=== PATIENT | male | born 1955 | race Caucasian/White ===

== ENCOUNTER → 2016-07-17 | Outpatient (CLI) | payer OTHER ==
[~2016-07-17] MED LIST: ALBUAER2 INH; CETI10TA84 PO; EPP3/2 IM; ESOM40GR PO; FLUT50SP14 NAE; GLIM2TAB PO; LEVO50CA2; LOSA1TAB38 PO; SPIR25TA PO; SYMIN160 INH
== END | disposition home or self-care (01) ==
LOC: C.LABSPEC 16:54
PROVIDERS: ATTEND Nurse Practitioner Family
DX: R10.9 Unspecified abdominal pain (principal)

== ENCOUNTER → 2016-07-18 | Outpatient (CLI) | payer OTHER ==
--- NOTE | 2016-07-18 15:42 | DIAGNOSTIC IMAGING REPORT ---
CT SCAN OF THE ABDOMEN AND PELVIS WITHOUT CONTRAST CLINICAL HISTORY: Left flank pain. COMPARISON STUDY: No previous studies for comparison. TECHNIQUE: CT scan of the abdomen and pelvis was performed from the lung bases to the proximal femurs. Images are reviewed in the axial, sagittal, and coronal planes. IV contrast was not administered for this examination. CT DOSE: 1495.84 mGy.cm FINDINGS: Lower chest: The heart is normal in size and configuration, without pericardial effusion. The lung bases and pleural spaces are clear. Liver: There is mild hepatic steatosis. No focal masses are visualized this noncontrast study. Gallbladder: Surgically absent Spleen: Normal in size and attenuation. Pancreas: Unremarkable. Adrenal glands: Unremarkable. Kidneys: No renal, ureteral, or bladder calculi are visualized. There is prominence of the left renal pelvis. There is a possible coexisting parapelvic cyst. There is mild perinephric stranding. Clinical correlation in regards to a urinary tract infection is recommended. Bowel: There are no transition zones indicate bowel obstruction. The appendix is not visualized. By history the appendix is surgically absent. There is no evidence of acute diverticulitis. Peritoneum: There is no free air. There is no ascites. There are mildly prominent upper abdominal mesenteric nodes. Vasculature: The abdominal aorta is normal in course and caliber. Adenopathy: There is no retroperitoneal adenopathy. As stated above, there are mildly prominent central mesenteric lymph nodes Pelvic viscera: The bladder, and pelvic viscera are unremarkable. Skeletal structures: No destructive osseous lesions are seen. IMPRESSION: 1. No evidence of bowel obstruction. No evidence of free air 2. No renal, ureteral, or bladder calculi identified 3. Mild prominence the left renal pelvis. Possible parapelvic cysts. Mild bilateral perinephric stranding. Clinical correlation in regards to a urinary tract infection is recommended 4. Mildly prominent central mesenteric lymph nodes 5. Surgically absent appendix. No evidence of acute diverticulitis. Electronically signed by: Say Clayton M.D. 07/18/2016 3:40 PM Dictated Date/Time: 07/18/2016 3:33 PM
== END | disposition home or self-care (01) ==
LOC: C.CTS 15:08
PROVIDERS: ATTEND Nurse Practitioner Family
DX: R93.422 Abnormal radiologic findings on diagnostic imaging of left kidney (principal); R10.9 Unspecified abdominal pain

== ENCOUNTER → 2016-07-30 | Outpatient (CLI) | payer OTHER ==
[~2016-07-30] MED LIST changes: +MethylPREDNISolone HOME PACK 16 MG TAB PO SCH
--- NOTE | 2016-07-30 14:30 | DIAGNOSTIC IMAGING REPORT ---
IVP CLINICAL HISTORY: Abnormality of the left kidney on imaging. COMPARISON STUDY: CT of the abdomen and pelvis July 18, 2016. 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 An intravenous pyelogram was then performed following intravenous injection 100 cc of Optiray 300 IV. Due to technical difficulties, tomographic images could not be obtained. FINDINGS: [employer] image demonstrates no urinary calculi. There are cholecystectomy clips. The bowel gas pattern is normal. Both nephrograms are symmetric. There is no hydronephrosis or hydroureter. Prominence of the right renal pelvis suggests an extrarenal pelvis. This did not persist on the post void image. The abnormality with the left renal pelvis on CT of July 18, 2016 likely reflects a parapelvic cyst. There is no significant post void residual. No filling defects are identified although visualization of the ureters is suboptimal. IMPRESSION: 1. No hydronephrosis. Apparent prominence of the left renal pelvis on CT of July 18, 2016 is likely due to parapelvic cysts. 2. No urinary calculi. Electronically signed by: Federico Saxena M.D. 07/30/2016 2:29 PM Dictated Date/Time: 07/30/2016 2:25 PM
== END | disposition home or self-care (01) ==
LOC: C.RAD 12:49
PROVIDERS: ATTEND Nurse Practitioner Family
DX: R93.8 Abnormal findings on diagnostic imaging of other specified body structures (principal)

== ENCOUNTER → 2017-01-23 | Outpatient (CLI) | payer OTHER ==
[~2017-01-23] MED LIST changes: -MethylPREDNISolone HOME PACK 16 MG TAB PO SCH
[2017-01-23 13:08] LABS: ALT/SGPT 44 U/L (12-78); AST/SGOT 24 U/L (15-37); BLOOD UREA NITROGEN 16 mg/dl (7-18); BUN/CREATININE RATIO 19.1 (10-20); CALCIUM 8.7 mg/dl (8.5-10.1); CARBON DIOXIDE 23 mmol/L (21-32); CHLORIDE 107 mmol/L (98-107); CREATININE 0.86 mg/dl (0.60-1.40); GLUCOSE 198 mg/dl (70-99); POTASSIUM 4.1 mmol/L (3.5-5.1); SODIUM 137 mmol/L (136-145)
[2017-01-23 13:15] LABS: ESTIMATED AVERAGE GLUCOSE 192 mg/dl; HA1C FLAG Normal (Normal)
[2017-01-23 13:19] LABS: ALKALINE PHOSPHATASE 96 U/L (45-117); CHOLESTEROL 197 mg/dl (0-200); CHOLESTEROL/HDL RATIO 5.5; HDL CHOLESTEROL 36 mg/dl; THYROID STIMULATING HORMONE 0.284 uIu/ml (0.300-4.500); TRIGLYCERIDES 555 mg/dl (0-150)
--- NOTE | 2017-01-30 09:25 | CODING QUERY MEDICAL NECESSITY ---
SUPPORTING DIAGNOSIS NEEDED A supporting diagnosis is required for the test/procedure performed on this patient in order for us to be reimbursed by the patient's insurance. Please provide a supporting diagnosis for the following test/procedure listed below next to the test name along with your signature. *If there is no additional diagnosis for this patient that would support the following test/procedure please document that below next to the test/procedure. Test(s)/Procedure(s) that require a supporting diagnosis: * PSA DIAGNOSIS: Provider Signature: Date: Thank you Chelita Anderson [employer] Information Management Once completed, please kindly fax back to [phone] For questions please call [phone]
== END | disposition home or self-care (01) ==
LOC: C.LABPBG 10:33
PROVIDERS: ATTEND Neuromusculoskeletal Medicine & OMM
DX: Z00.00 Encounter for general adult medical examination without abnormal findings (principal); E11.9 Type 2 diabetes mellitus without complications; E03.9 Hypothyroidism, unspecified; Z12.5 Encounter for screening for malignant neoplasm of prostate

== ENCOUNTER 2020-07-26 17:20 | Observation (INO) ==
[2020-07-26 17:46] LABS: Basophils # (auto) 0.05 K/uL (0-0.2); Basophils % (auto) 0.5 %; Eosinophils # (auto) 0.18 K/uL (0-0.5); Eosinophils % (auto) 1.8 %; Hematocrit (blood only) 51.8 % (42-52); Hemoglobin 17.8 g/dL (14.0-18.0); Immature Granulocytes # (auto) 0.02 K/uL (0.00-0.02); Immature Granulocytes % (auto) 0.2 %; Lymphocytes # (auto) 2.61 K/uL (1.2-3.4); Lymphocytes % (auto) 26.6 %; Mean Corpuscular Hemoglobin 29.9 pg (25-34); Mean Corpuscular Hgb Conc 34.4 g/dL (32-36); Mean Corpuscular Volume 87.1 fL (80-100); Mean Platelet Volume 10.5 fL (7.4-10.4); Monocytes # (auto) 0.99 K/uL (0.11-0.59); Monocytes % (auto) 10.1 %; Neutrophils # (auto) 5.95 K/uL (1.4-6.5); Neutrophils % (auto) 60.8 %; Platelet Count 231 K/uL (130-400); RDW Coefficient of Variation 12.9 % (11.5-14.5); RDW Standard Deviation 40.9 fL (36.4-46.3); Red Blood Count 5.95 M/uL (4.7-6.1)
[2020-07-26 17:56] LABS: Partial Thromboplastin Time 26.3 Seconds (21.0-31.0); Prothrombin Time 10.3 Seconds (9.0-12.0)
[2020-07-26 18:02] LABS: Alanine Aminotransferase 27 U/L (12-78); Albumin Level 4.1 gm/dl (3.4-5.0); Aspartate Aminotransferase 18 U/L (15-37); BUN Creatinine Ratio 19.1 (10-20); Blood Urea Nitrogen 19 mg/dl (7-18); Calcium 9.2 mg/dl (8.5-10.1); Carbon Dioxide 32 mmol/L (21-32); Chloride 102 mmol/L (98-107); Creatinine Clr Calc Pharmacy 83.1 ml/min; Est GFR (African American) 88.4; Est GFR (Non-African American) 76.2; Glucose 148 mg/dl (70-99); Potassium 3.2 mmol/L (3.5-5.1); Sodium 140 mmol/L (136-145)
[2020-07-26 18:07] LABS: Alkaline Phosphatase 124 U/L (45-117); Bilirubin,Total 0.5 mg/dl (0.2-1); Globulin 4.3 gm/dl (2.5-4.0); Total Protein 8.4 gm/dl (6.4-8.2); Troponin I < 0.015 ng/ml (0-0.045)
--- NOTE | 2020-07-26 18:13 | XRay Report ---
SINGLE VIEW CHEST CLINICAL HISTORY: Atypical chest pain. FINDINGS: An AP, portable, upright chest radiograph is compared to study dated 03/17/2020. The examina tion is degraded by portable technique and apical lordotic position. The patient is status post midli ne sternotomy. The heart is enlarged noting atherosclerotic calcification of the thoracic aorta. The pulmonary vasculature is noncongested. Chronic interstitial thickening is similar to previous. There is left basilar scarring/atelectasis. No airspace consolidation or large pleural effusion is identifi ed. No pneumothorax is seen. The skeletal structures are osteopenic. The bony thorax is grossly intac t. IMPRESSION: Mild cardiomegaly with no acute cardiopulmonary abnormality. ACT 112: Negative or not required by law. Electronically signed by: Elie Ceron M.D. 07/26/2020 6:11 PM
--- NOTE | 2020-07-26 18:23 | Emergency Department Note ---
Impression & Plan Left-sided chest pain, Acute electrocardiogram changes ED Provider Note INFORMANT: Patient ED PROVIDER(S): James Garcia MD CHIEF COMPLAINT: Left-sided chest pain PLAN: Disposition: Admitted Condition: Good Outpatient prescription management: none Referral: None MEDICAL DECISION MAKING: Patient presented because of left-sided chest pain. An ECG was performed in the office and it did show inferolateral T wave inversions. They did not have any prior for comparison. An ECG done here showed inferolateral changes as well. Compared to the prior ECGs in our system this was different however they were all done before his CABG. The patient underwent CT imaging of his chest which did not reveal any acute pathology. Specifically no PE. The patient underwent ultrasound imaging of the left lower extremity. This was negative. I was able to obtain an ECG from the [facility] system and the inferolateral changes are new. In light of his negative thromboembolic work-up, cardiac history, and new ECG changes further management in the hospital be necessary. A consultation was mad e with [facility] service. The patient was evaluated in the ER by Dr. Dwayne Matthew for further management. The patient did request a dose of his evening tramadol for his leg. This was done. He did take his aspirin and Plavix today. Triage Nursing notes reviewed and agree them. Prior medical records reviewed regarding the patient's medical history. Vital Signs: reviewed and remarkable for no significant abnormalities Differential diagnosis: Cardiac ischemia, aortic dissection, pulmonary embolism, pneumothorax, pneumonia, pericarditis, myocarditis, esophageal rupture, GERD, cholecystitis, pancreatitis, musculoskeletal, as well as other pathologies. Diagnostics interpreted by me: ECG: Twelve-lead ECG reveals normal sinus rhythm with sinus arrhythmia at 81 bpm. There is inferolateral T wave inversions. These are new when compared to ECG of 06/11/2019. His ECG done in the office revealed a sinus rhythm at 85 bpm. There is LVH. There was inferolateral T wave changes. When compared to the [place] ECG for both ECGs done today the inferolateral changes have replaced nonspecific ST change. That ECG was dated 03 April 2020. Cardiac Monitoring:Cardiac monitoring ordered by me: The patient was placed on continuous cardiac monitoring and observed. It revealed a normal sinus rhythm at 85 beats per minute without ectopy or evidence of dysrhythmia. Imaging studies: Chest x-ray. Findings: A chest x-ray was performed and revealed no pneumothorax, effusion, infiltrate, pulmonary edema, free air under the diaphragm, or wide mediastinum. Impression: No acute disease. Ultrasound imaging of the left leg negative for DVT. CT PE study negative for pulmonary embolism or other acute pathology. I refer you to the EMR for further details on imaging. HPI: The patient is a 65 year old male who presents to the Emergency Room with complaints of left-sided chest pain. This started a few days ago and is persistent. The patient does note it is worse with taking a deep breath.. The patient also notes the following associated symptoms, intermittent lightheadedness. The patient has taken no new medication for relieving factors. Current pain is rated as 5/10. Patient was at his PCPs office. They were concerned and will been order an outpatient CT scan for PE and an ultrasound as he was having some left leg calf pain. They did an EKG and it was abnormal and sent him to the ER for further evaluation. Pt denies LOC, headache, fevers, chills, diaphoresis, visual changes, neck pain, breathing difficulties, nausea, vomiting, abdominal pain, back pain, melena, hematochezia, urinary symptoms, numbness, weakness, lymphadenopathy, rash, or other complaints. ROS: See above HPI for pertinent positives & negatives. A total of 10 systems reviewed and were otherwise negative. PAST MEDICAL HISTORY:See Below , CAD PAST SURGICAL HISTORY:See Below, CABG FAMILY HISTORY:See Below SOCIAL HISTORY:See Below, HOME MEDICATIONS:See Below ALLERGIES:See Below VITALS:See Below PHYSICAL EXAMINATION: GENERAL: Awake, alert, well-appearing, in no distress HENT: Normocephalic, atraumatic. Oropharynx unremarkable. EYES: Normal conjunctiva. Sclera non-icteric. NECK: Inspection normal. Non-tender. Supple. No nuchal rigidity. FROM. No masses. RESPIRATORY: Clear to auscultation. No wheezes. No rales. Normal respiratory effort. CARDIAC: Normal rate. Normal rhythm. No murmurs. No rubs. Extremities warm and well perfused. Pulses equal. No JVD. GI: Soft, non-distended. No tenderness to palpation. No rebound or guarding. No masses. RECTAL: Deferred. MUSCULOSKELETAL: Atraumatic. Chest examination reveals no tenderness. The back is symmetrical on inspection without obvious abnormality. There is no CVA tenderness to palpation. No joint edema. LOWER EXTREMITIES: Calves are equal size bilaterally but there is mild superior left tenderness. No edema. No discoloration. NEURO: Normal sensorium. No sensory or motor deficits noted. SKIN: No rash or jaundice noted. James Garcia MD Past Med/Surg History Medical History Asthma CAD (coronary artery disease) Diabetes mellitus, type 2 Distal myopathy Dyslipidemia GERD (gastroesophageal reflux disease) Agustín's thyroiditis History of cervical fracture History of colon polyps History of fatty infiltration of liver History of gout History of stomach ulcers Hypertension Hypothyroidism IBS (irritable bowel syndrome) Migraine Nasal fracture Neuropathy Osteoarthritis TBI (traumatic brain injury) Vitamin D deficiency Surgical History H/O repair of rotator cuff History of appendectomy History of arthroscopic knee surgery History of cardiac cath History of carpal tunnel release of both wrists History of cataract surgery History of cholecystectomy History of coronary artery stent placement (06/11/19) History of sinus surgery S/P CABG x 2 (04/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) S/P foot surgery S/P tonsillectomy and adenoidectomy Family History Mother Diabetes Kidney disease Aunt Colorectal cancer FH: ovarian cancer Father Liver cancer Metastatic to brain and lung Hypertension Lung cancer Cancer brain Brother Pancreatic cancer Denies family history of Prostate cancer Myocardial infarction Breast cancer Social History Smoking Status: Never smoker packs per day: 2; Years Smoked: 20; Second Hand Exposure: No; Hx Alcohol Use: No Hx Substance Use: No Preferred Language: Qatari Communication Ability: Effective Visual Impairment: Limited Hearing Ability: Normal Quality Systems Technician Required: No Beliefs That Will Affect Care: None marital status: Current Living Situation: Spouse current occupational status: employed and retired Feels Safe at Home: Yes Childhood Exposure to Second-Hand Smoke: No caffeine: Yes (Coffee x 2 per day. ) during the past year weight has: decreased > 10 lbs Dental Care, Regularly: Yes Physical Activity Frequency: Daily Seatbelt Use: always Sunscreen Use: Yes Assistive Devices: Glasses Allergies Allergies Allergy/AdvReac Type Severity Reaction Status Date / Time clindamycin Allergy Severe hives, Verified 07/26/20 18:49 swellling short of breath bee venom protein (honey bee) Allergy Unknown CAN'T Verified 07/26/20 18:49 REMEMBER insulin regular Allergy Unknown CAN'T Verified 07/26/20 18:49 [From Humulin R Regular REMEMBER U-100 Insuln] mold Allergy Unknown CAN'T Verified 07/26/20 18:49 REMEMBER Penicillins Allergy Unknown RASH/TROUBLE Verified 07/26/20 18:49 BREATHING Sulfa (Sulfonamide Allergy Unknown RASH/TROUBLE Verified 07/26/20 18:49 Antibiotics) BREATHING DUST MITES Allergy Unknown CAN'T Uncoded 07/26/20 18:49 REMEMBER Home Meds Home Medications Medication Instructions Recorded Confirmed loratadine [Claritin] 10 mg PO QAM 09/30/18 07/26/20 cholecalciferol (vitamin D3) 50 2,000 units PO DAILY 01/05/19 07/26/20 mcg (2,000 unit) capsule cetirizine 10 mg tablet 10 mg PO DAILY tab 01/11/20 07/26/20 levothyroxine 75 mcg tablet 75 mcg PO DAILY tab 06/02/20 07/26/20 Previous Rx's Medication Instructions Recorded aspirin 81 mg tablet,delayed 81 mg PO DAILY #90 tab 06/12/19 release blood sugar diagnostic #200 ea 09/02/19 lancing device #1 ea 09/02/19 clopidogrel 75 mg tablet 75 mg PO DAILY #90 tab 09/07/19 albuterol sulfate 90 mcg/actuation 2 puffs INHALATION Q4H PRN #6.7 gm 09/08/19 aerosol inhaler fluticasone propionate 50 2 sprays INTRANASAL QAM #16 gm 11/18/19 mcg/actuation nasal spray,suspension losartan 100 mg tablet 100 mg PO DAILY #90 tab 02/04/20 blood-glucose meter #1 ea 03/10/20 lancets 30 gauge #200 ea 03/10/20 pen needle, diabetic 32 gauge x #200 ea 03/10/20" nitroglycerin 0.4 mg sublingual 0.4 mg SL Q5M PRN #25 tab 03/17/20 tablet duloxetine 60 mg capsule,delayed 60 mg PO BID #180 cap 03/22/20 release tramadol 50 mg tablet 50 mg PO Q8H PRN #30 tab 04/04/20 dapagliflozin 10 mg tablet 10 mg PO DAILY #90 tab 04/27/20 doxazosin 1 mg tablet 1 mg PO QPM #90 tab 05/16/20 metoprolol succinate 25 mg 25 mg PO BID #180 tab 05/16/20 tablet,extended release 24 hr cyclobenzaprine 5 mg tablet 2.5 mg PO TID PRN #14 tab 05/23/20 hydrochlorothiazide 25 mg tablet 25 mg PO DAILY #90 tab 06/02/20 atorvastatin 40 mg tablet 40 mg PO DAILY #90 tab 06/27/20 insulin glargine 100 unit/mL (3 40 unit SUBCUT DAILY 90 Days #36 ml 06/27/20 mL) subcutaneous pen pantoprazole 40 mg tablet,delayed 40 mg PO DAILY PRN #90 tab 07/14/20 release Results & Data (ED) Vital Signs Vital Signs - 24 hr 07/26/20 17:23 07/26/20 18:02 07/26/20 19:10 Temperature 36.4 C L Temperature Source Temporal Artery Scan Pulse Rate 80 Pulse Rate [Left Finger] 76 78 Pulse Rate from SpO2 Sensor Pulse Rhythm [Left Finger] Regular Pulse Strength [Left Finger] Normal Respiratory Rate 18 20 16 Respiratory Effort / Characteristics Non-Labored Non-Labored Spontaneous Respiratory Depth Normal Normal Respiratory Pattern Regular Regular Blood Pressure 152/100 H Blood Pressure [Left Arm] 157/104 H 146/91 H Blood Pressure Mean 117 Blood Pressure Mean [Left Arm] 121 109 Blood Pressure Position [Left Arm] Sitting Lying Pulse Oximetry 98 96 94 Oxygen Delivery Method Room Air Room Air Sepsis Recent Fever Within 48 Hours No Sepsis New/Unexplained Change in Mental Status N/A Sepsis Action Taken by Nursing No Action Required 07/26/20 20:05 07/26/20 20:30 07/26/20 21:00 Temperature Temperature Source Pulse Rate 74 72 Pulse Rate [Left Finger] 75 Pulse Rate from SpO2 Sensor 74 72 Pulse Rhythm [Left Finger] Pulse Strength [Left Finger] Respiratory Rate 16 16 11 L Respiratory Effort / Characteristics Non-Labored Spontaneous Respiratory Depth Normal Respiratory Pattern Regular Blood Pressure 164/97 H 138/95 Blood Pressure [Left Arm] 169/95 H Blood Pressure Mean 119 109 Blood Pressure Mean [Left Arm] 119 Blood Pressure Position [Left Arm] Lying Pulse Oximetry 94 93 93 Oxygen Delivery Method Room Air Room Air Room Air Sepsis Recent Fever Within 48 Hours Sepsis New/Unexplained Change in Mental Status Sepsis Action Taken by Nursing 07/26/20 21:30 07/26/20 21:31 07/26/20 22:00 Temperature Temperature Source Pulse Rate 78 82 85 Pulse Rate [Left Finger] Pulse Rate from SpO2 Sensor 78 82 82 Pulse Rhythm [Left Finger] Pulse Strength [Left Finger] Respiratory Rate 14 12 13 Respiratory Effort / Characteristics Respiratory Depth Respiratory Pattern Blood Pressure 155/100 H 148/99 H Blood Pressure [Left Arm] Blood Pressure Mean 118 115 Blood Pressure Mean [Left Arm] Blood Pressure Position [Left Arm] Pulse Oximetry 94 93 93 Oxygen Delivery Method Room Air Room Air Sepsis Recent Fever Within 48 Hours Sepsis New/Unexplained Change in Mental Status Sepsis Action Taken by Nursing Laboratory Data Result diagrams: 07/26/20 17:35 07/26/20 17:35 Lab Results 07/26/20 07/26/20 07/26/20 Range/Units 17:35 17:35 17:35 WBC 9.80 (4.8-10.8) K/uL RBC 5.95 (4.7-6.1) M/uL Hgb 17.8 (14.0-18.0) g/dL Hct 51.8 (42-52) % MCV 87.1 (80-100) fL MCH 29.9 (25-34) pg MCHC 34.4 (32-36) g/dL RDW Std Deviation 40.9 (36.4-46.3) fL RDW Coeff of Sasha 12.9 (11.5-14.5) % Plt Count 231 (130-400) K/uL MPV 10.5 H (7.4-10.4) fL Immature Gran % (Auto) 0.2 % Neut % (Auto) 60.8 % Lymph % (Auto) 26.6 % [place] % (Auto) 10.1 % Eos % (Auto) 1.8 % Baso % (Auto) 0.5 % Neut # (Auto) 5.95 (1.4-6.5) K/uL Lymph # (Auto) 2.61 (1.2-3.4) K/uL [place] # (Auto) 0.99 H (0.11-0.59) K/uL Eos # (Auto) 0.18 (0-0.5) K/uL Baso # (Auto) 0.05 (0-0.2) K/uL Immature Gran # (Auto) 0.02 (0.00-0.02) K/uL PT 10.3 (9.0-12.0) Seconds INR 1.0 (0.9-1.1) APTT 26.3 (21.0-31.0) Seconds PTT Ratio 1.0 Sodium 140 (136-145) mmol/L Potassium 3.2 L (3.5-5.1) mmol/L Chloride 102 (98-107) mmol/L Carbon Dioxide 32 (21-32) mmol/L Anion Gap 6.0 (3-11) BUN 19 H (7-18) mg/dl Creatinine 1.02 (0.6-1.4) mg/dl Est Cr Clr Drug Dosing 83.1 ml/min Est GFR ( Amer) 88.4 Est GFR (Non-Af Amer) 76.2 BUN/Creatinine Ratio 19.1 (10-20) Glucose 148 H (70-99) mg/dl Calcium 9.2 (8.5-10.1) mg/dl Total Bilirubin 0.5 (0.2-1) mg/dl AST 18 (15-37) U/L ALT 27 (12-78) U/L Alkaline Phosphatase 124 H (45-117) U/L Troponin I < 0.015 (0-0.045) ng/ml Total Protein 8.4 H (6.4-8.2) gm/dl Albumin 4.1 (3.4-5.0) gm/dl Globulin 4.3 H (2.5-4.0) gm/dl Albumin/Globulin Ratio 1.0 (0.9-2) COVID-19 Eval Order SARS-CoV-2, RNA, NAAT (NEGATIVE) 07/26/20 07/26/20 Range/Units 22:06 22:06 WBC (4.8-10.8) K/uL RBC (4.7-6.1) M/uL Hgb (14.0-18.0) g/dL Hct (42-52) % MCV (80-100) fL MCH (25-34) pg MCHC (32-36) g/dL RDW Std Deviation (36.4-46.3) fL RDW Coeff of Sasha (11.5-14.5) % Plt Count (130-400) K/uL MPV (7.4-10.4) fL Immature Gran % (Auto) % Neut % (Auto) % Lymph % (Auto) % [place] % (Auto) % Eos % (Auto) % Baso % (Auto) % Neut # (Auto) (1.4-6.5) K/uL Lymph # (Auto) (1.2-3.4) K/uL [place] # (Auto) (0.11-0.59) K/uL Eos # (Auto) (0-0.5) K/uL Baso # (Auto) (0-0.2) K/uL Immature Gran # (Auto) (0.00-0.02) K/uL PT (9.0-12.0) Seconds INR (0.9-1.1) APTT (21.0-31.0) Seconds PTT Ratio Sodium (136-145) mmol/L Potassium (3.5-5.1) mmol/L Chloride (98-107) mmol/L Carbon Dioxide (21-32) mmol/L Anion Gap (3-11) BUN (7-18) mg/dl Creatinine (0.6-1.4) mg/dl Est Cr Clr Drug Dosing ml/min Est GFR ( Amer) Est GFR (Non-Af Amer) BUN/Creatinine Ratio (10-20) Glucose (70-99) mg/dl Calcium (8.5-10.1) mg/dl Total Bilirubin (0.2-1) mg/dl AST (15-37) U/L ALT (12-78) U/L Alkaline Phosphatase (45-117) U/L Troponin I (0-0.045) ng/ml Total Protein (6.4-8.2) gm/dl Albumin (3.4-5.0) gm/dl Globulin (2.5-4.0) gm/dl Albumin/Globulin Ratio (0.9-2) COVID-19 Eval Order Covid19 IDNow atMAZC SARS-CoV-2, RNA, NAAT NEGATIVE (NEGATIVE) Administered Medications Discontinued Medications Ioversol (Optiray 320 125ml) 117 ml IV ONCE ONE Stop: 07/26/20 19:06 Last Admin: 07/26/20 19:05 Dose: 117 ml Documented by: [id number] Tramadol HCl (Tramadol Hcl 50 Mg Tablet) 50 mg PO NOW STA Stop: 07/26/20 22:18 Last Admin: 07/26/20 22:22 Dose: 50 mg Documented by: [id number] Discharge Plan Visit Data Chief Complaint: Chest Pain Stated Complaint: REF BY , CHEST PAIN ED Provider: James Garcia Discharge Problem: Left-sided chest pain, Acute electrocardiogram changes Forms Stand Alone Forms: [facility] Quiet[facility] Prescriptions Prescriptions: No Action cholecalciferol (vitamin D3) 2,000 unit capsule 2,000 units PO DAILY RF: 0 aspirin 81 mg tablet,delayed release (DR/EC) 81 mg PO DAILY Qty: 90 RF: 3 (DME) Advocate Redi-Code Strip See Rx Instructions .ROUTE .MEDSUPPLY Qty: 200 RF: 1 (DME) lancing device [TRUEdraw Lancing Device] Misc See Rx Instructions .ROUTE .MEDSUPPLY Qty: 1 RF: 0 clopidogrel 75 mg tablet 75 mg PO DAILY Qty: 90 RF: 3 albuterol sulfate [Proventil HFA] 90 mcg/actuation HFA aerosol inhaler 2 puffs inhalation Q4H PRN (Reason: Shortness Of Breath) Qty: 6.7 RF: 2 fluticasone propionate [Flonase Allergy Relief] 50 mcg/actuation spray,suspension 2 sprays INTRANASAL QAM Qty: 16 RF: 1 losartan 100 mg tablet 100 mg PO DAILY Qty: 90 RF: 1 (DME) blood-glucose meter [Advocate Redi-Code Plus] Misc See Rx Instructions .ROUTE .MEDSUPPLY Qty: 1 RF: 3 (DME) lancets [TRUEplus Lancets] 30 gauge misc See Rx Instructions .ROUTE .MEDSUPPLY Qty: 200 RF: 1 (DME) pen needle, diabetic [Easy Comfort Pen [place]] 32 gauge x 5/32" needle See Rx Instructions .ROUTE .MEDSUPPLY Qty: 200 RF: 1 duloxetine [Cymbalta] 60 mg capsule,delayed release(DR/EC) 60 mg PO BID Qty: 180 RF: 3 tramadol 50 mg tablet 50 mg PO Q8H PRN (Reason: pain) Qty: 30 RF: 0 dapagliflozin 10 mg tablet 10 mg PO DAILY Qty: 90 RF: 1 cyclobenzaprine 5 mg tablet 2.5 mg PO TID PRN (Reason: muscle spasm) Qty: 14 RF: 0 pantoprazole 40 mg tablet,delayed release (DR/EC) 40 mg PO DAILY PRN (Reason: Indigestion) Qty: 90 RF: 1 cetirizine 10 mg tablet 10 mg PO DAILY RF: 0 metoprolol succinate 25 mg tablet extended release 24 hr 25 mg PO BID Qty: 180 RF: 1 doxazosin 1 mg tablet 1 mg PO QPM Qty: 90 RF: 1 nitroglycerin 0.4 mg tablet, sublingual 0.4 mg SL Q5M PRN (Reason: chest pain) Qty: 25 RF: 4 levothyroxine 75 mcg tablet 75 mcg PO DAILY RF: 0 hydrochlorothiazide 25 mg tablet 25 mg PO DAILY Qty: 90 RF: 3 Basaglar KwikPen U-100 Insulin 100 unit/mL (3 mL) insulin pen 40 unit SUBCUT DAILY 90 Days Qty: 36 RF: 1 atorvastatin 40 mg tablet 40 mg PO DAILY Qty: 90 RF: 3 loratadine [Claritin] 10 mg Tablet 10 mg PO QAM RF: 0 Referrals Referrals: Thalia Joseph DO [Primary Care Provider] -
[2020-07-26] MEDS ORDERED: OPTIRAY 320 125ml IV ONE (19:05)
--- NOTE | 2020-07-26 19:12 | CT Scan Report ---
CT ANGIOGRAM OF THE CHEST CLINICAL HISTORY: Atypical chest pain. COMPARISON STUDY: Chest x-ray dated 07/26/2020. TECHNIQUE: Following the IV administration of 117 cc of Optiray 320, CT angiogram of the chest was pe rformed from the upper abdomen to the thoracic inlet utilizing the pulmonary embolus protocol. Images are reviewed in the axial, sagittal, and coronal planes. 3-D MIPS images are created and assessed. I V contrast was administered without complication. A dose lowering technique was utilized adhering to the principles of ALARA. CT DOSE: 765.32 mGy.cm FINDINGS: Thyroid: Imaged portions of the thyroid gland are normal in size and attenuation. Thoracic aorta: There is atherosclerotic calcification of the thoracic aorta, which is normal in khurram eliseo and demonstrates standard 3-vessel arch anatomy. No dissection is seen. Pulmonary vasculature: The pulmonary trunk is normal in caliber. There are no filling defects identif ied in main, lobar, or segmental pulmonary branches to suggest pulmonary embolus. Heart: The patient is status post midline sternotomy. The heart is mildly enlarged and without perica rdial effusion. The coronary arteries are densely calcified. Lungs and pleural spaces: There is no airspace consolidation or pleural effusion. The trachea and digna tral airways are clear. Mild diffuse peribronchial thickening is noted. Scarring/atelectasis is prese nt at the lung bases. Mediastinum: There is mild retrosternal soft tissue induration. There is no mediastinal lymphadenopat hy. Jing: Clear. Axillae: There is no axillary lymphadenopathy. Upper abdomen: Cholecystectomy clips are seen in the right upper quadrant. There is a small hiatal he rnia. Skeletal structures: No lytic or blastic bony lesions are seen. Postoperative change is noted in the left shoulder. Soft tissues: There is presternal soft tissue induration. IMPRESSION: 1. There is no evidence of pulmonary embolus in the main, lobar, or segmental pulmonary arteries. 2. There is presternal and retrosternal soft tissue induration. This may be related to recent surgery and clinical correlation will be required. 3. There is no airspace consolidation or pleural effusion. 4. Mild diffuse peribronchial thickening suggests bronchitis/reactive airway disease. Clinical correl ation will be required. 5. Additional findings as above. ACT 112: Negative or not required by law. Electronically signed by: Elie Ceron M.D. 07/26/2020 7:11 PM
--- NOTE | 2020-07-26 20:05 | Ultrasound Report ---
ULTRASOUND LEFT LOWER EXTREMITY VENOUS CLINICAL HISTORY: Left leg pain. COMPARISON STUDY: No priors. TECHNIQUE: Real-time, grayscale, and color Doppler sonography of the deep veins of the left lower ext remity was performed from the inguinal crease to the calf. Compression and augmentation were utilized . FINDINGS: There is no sonographic evidence of deep venous thrombosis identified in the left lower ext remity. The common femoral, superficial femoral, and popliteal veins are patent and normally compress ible. The greater saphenous vein and the profunda femoris vein at the junction with the common femora l vein are clear. The visualized calf veins are patent. IMPRESSION: There is no sonographic evidence of deep venous thrombosis identified in the left lower e xtremity. ACT 112: Negative or not required by law. Electronically signed by: Elie Ceron M.D. 07/26/2020 8:04 PM
[2020-07-26] MEDS ORDERED: traMADol HCL 50 MG TABLET PO STA (22:17)
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
[2020-07-26] MEDS ORDERED: GLUCOSE 10 TABS/TUBE PO PRN (23:22)
[2020-07-26] MEDS ORDERED: ACETAMINOPHEN 325 MG TAB PO PRN (23:22)
[2020-07-26] MEDS ORDERED: POLYETHYLENE (MIRALAX) 17 GM PACK PO PRN (23:22)
[2020-07-26] MEDS ORDERED: GLUCAGON FOR INJ 1 MG VIAL SQ PRN (23:22)
[2020-07-26] MEDS ORDERED: ALBUTEROL HFA 8 GM INHALER INH PRN (23:22)
[2020-07-26] MEDS ORDERED: ONDANSETRON INJ 2 MG/ML 2 ML VIAL IV PRN (23:22)
[2020-07-26] MEDS ORDERED: MoRPHine SULFATE 2 MG/ML CARP IV PRN (23:22)
[2020-07-26] MEDS ORDERED: DEXTROSE 50% 50 ML SYRINGE IV PRN (23:22)
[2020-07-26] MEDS ORDERED: traMADol HCL 50 MG TABLET PO PRN (23:22)
[2020-07-26] MEDS ORDERED: PANTOprazole 40 MG TAB PO PRN (23:22)
[2020-07-26] MEDS ORDERED: CYCLOBENZAPRINE HCL 5 MG TAB PO PRN (23:22)
[2020-07-26] MEDS ORDERED: NITROGLYCERIN SL 0.4 MG/TAB TAB SL PRN (23:22)
[2020-07-26] MEDS ORDERED: GLUCOSE 40% GEL 15 GM TUBE PO PRN (23:22)
[2020-07-26] MEDS ORDERED: CARBOHYDRATES FOR HYPOGLYCEMIA PO PRN (23:22)
[2020-07-27] MEDS: METOPROLOL SUCC 25MG EXT REL TAB PO SCH ×2 (00:20→08:22)
[2020-07-27] MEDS ORDERED: LEVOTHYROXINE SODIUM 75 MCG TABLET PO SCH (06:30)
[2020-07-27 07:49] LABS: Hematocrit (blood only) 50.9 % (42-52); Hemoglobin 17.7 g/dL (14.0-18.0); Mean Corpuscular Hemoglobin 30.1 pg (25-34); Mean Corpuscular Hgb Conc 34.8 g/dL (32-36); Mean Corpuscular Volume 86.6 fL (80-100); Mean Platelet Volume 10.8 fL (7.4-10.4); Platelet Count 216 K/uL (130-400); RDW Standard Deviation 41.3 fL (36.4-46.3); Red Blood Count 5.88 M/uL (4.7-6.1); White Blood Count 8.24 K/uL (4.8-10.8)
[2020-07-27 08:24] LABS: BUN Creatinine Ratio 18.9 (10-20); Calcium 9.2 mg/dl (8.5-10.1); Creatinine Clr Calc Pharmacy 97.5 ml/min; Est GFR (African American) 104.7; Est GFR (Non-African American) 90.4; Potassium 3.7 mmol/L (3.5-5.1)
[2020-07-27] MEDS ORDERED: INSULIN GLARGINE SOLOSTAR 100 UNITS/ML 3 ML PEN SC ONE (08:46)
[2020-07-27] MEDS: INSULIN GLARGINE SOLOSTAR 100 UNITS/ML 3 ML PEN SQ SCH ×2 (08:47→09:43)
--- NOTE | 2020-07-27 08:56 | Hospitalist Progress Note ---
Date of Service July 27, 2020 Assessment & Plan Admission and Anticipated Discharge Date Admission Date: July 26, 2020 Results & Data Results & Data ([facility]) Vital Signs (Past 12 Hours) Vital Signs Temp Pulse Pulse Resp BP BP Pulse Ox 07/27/20 07:41 36.6 C 64 18 138/88 92 07/27/20 04:54 36.6 C 76 16 131/90 91 07/26/20 23:25 36.8 C 76 18 144/88 H 93 07/26/20 22:57 69 16 126/72 93 07/26/20 22:00 85 13 148/99 H 93 07/26/20 21:31 82 12 93 07/26/20 21:30 78 14 155/100 H 94 07/26/20 21:00 72 11 L 138/95 93
[2020-07-27] MEDS ORDERED: HEPARIN SOD 5,000 UNIT/0.5 ML VIAL SQ SCH (09:00)
[2020-07-27] MEDS ORDERED: FLUTICASONE PROPIONATE NA SPR 16 GM BTL SCH (09:00)
[2020-07-27] MEDS ORDERED: CETIRIZINE HCL 10 MG TABLET PO SCH (09:00)
[2020-07-27] MEDS ORDERED: LOSARTAN POTASSIUM 50 MG TAB PO SCH (09:00)
[2020-07-27] MEDS ORDERED: CLOPIDOGREL BISULFATE 75 MG TAB PO SCH (09:00)
[2020-07-27] MEDS ORDERED: ASPIRIN 81 MG ECTAB PO SCH (09:00)
[2020-07-27] MEDS ORDERED: ATORVASTATIN 40 MG TAB PO SCH ×2 (09:00)
[2020-07-27] MEDS ORDERED: hydroCHLOROthiazide 25 MG TAB PO SCH (09:00)
[2020-07-27] MEDS ORDERED: LORATADINE 10 MG TAB PO SCH (09:00)
[2020-07-27] MEDS ORDERED: DULoxetine HCL 60 MG CAP PO SCH (09:00)
--- NOTE | 2020-07-27 09:04 | XCELERA ---
[id number]
[2020-07-27 09:13] LABS: Estimated Average Glucose 214 mg/dl; Hemoglobin A1C 9.1 % (4.5-5.6)
--- NOTE | 2020-07-27 09:33 | Cardiology Consultation ---
Date of Consultation July 27, 2020 Assessment & Plan (1) Left-sided chest pain: (2) Abnormal ECG: (3) CAD (coronary artery disease): (4) Status post double vessel coronary artery bypass: (5) History of coronary artery stent placement: (6) Hypertension: (7) Dyslipidemia: ASSESSMENT/PLAN: 1. Atypical chest pain: He describes 2 different pains. The left-sided chest pain appears to be musculoskeletal as it is reproducible on exam and occurred only after falling on his left chest after slipping on the ice. This has improved with time. The pleuritic discomfort is actually in his mid axillary line, lower chest/upper abdominal and feels like prior pleurisy. It has also improved without any specific treatment over the past few days. Can consider full-dose aspirin, 325 mg once or twice daily for 1 week, before resuming 81 mg daily. Symptoms are not consistent with acute coronary syndrome. He has had constant pain with negative troponin levels and no new wall motion abnormalities on echo. 2. Abnormal ECG: ECG demonstrated inferolateral T-wave abnormality which was new compared to pre CABG ECG. His symptoms are not consistent with ischemic heart disease. Repeat ECG today to see if there is any evolution of his ECG abnormality. This could be a progression following CABG. 3. CAD s/p LAD PCI and CABG x 2: Dyspnea with exertion has resolved following revascularization in March of 2021. No angina. Atypical chest pain as noted above. Continue aspirin 81 mg daily indefinitely. Can continue Plavix as well if no contraindication. Continue high-intensity statin therapy, ARB, and beta- maynor. 4. Hypertension: Blood pressure was initially mildly elevated but has since been normotensive this morning. Continue home regimen. 5. Dyslipidemia: Continue high-intensity statin therapy. 6. Disposition: No further cardiac evaluation necessary at this time. He has a follow-up appointment scheduled with me in September and can keep this appointment. Cardiology recommendations discussed with primary hospitalist service, Dr. Omer. Today's visit was 50 minutes in duration, including reviewing records, studies, chart, [id number] time with patient, and coordinating care. Thank you for allowing me to participate in the care of your patient. Please c all for any other questions or concerns. Sincerely, Jaiden Mckenzie M.D. History of Present Illness Reason for Consultation: Chest pain Requesting Physician: Dr. Matthew Attending Physician: Paulie Banks DO History of Present Illness Mr. Tatum is a pleasant 65-year-old gentleman with a history significant for CAD s/p LAD PCI and CABG x 2, hypertension, type 2 diabetes, dyslipidemia, fatty liver, and asthma. He also has muscular dystrophy described as distal myopathy, and traumatic brain injury with several skull fractures and history of hemorrhage from traumatic fall. He was initially referred to Cardiology in 2019 due to dyspnea with exertion and possible infarct on myocardial perfusion study. He underwent cardiac catheterization was found to have severe mid LAD stenosis and underwent PCI on 06/11/2019. He underwent repeat cardiac catheterization on 03/21/2020 and was referred to CT surgery for CABG due to significant LMCA disease. He underwent CABG x2 (GARZA to LAD and SVG to OM) at [facility] on 04/13/2020. He has had the following studies/procedures: 1. Cardiac catheterization [address] [place] [address]: He reports normal catheterization. Via femoral artery. He reports bleeding complication due to significant coughing, requiring rehospitalization. Done in the setting of chest pain and concern for IN. Was later diagnosed with gallbladder issues as the cause of his chest pain. 2. Nuclear stress 04/16/2019: Negative for ischemia. Small apical, largely fixed perfusion defect and according to report by Dr. Maldonado, artifact with suspected. Could not rule out small LAD infarct with minimal panfilo-infarct ischemia. EF 57%. Normal wall motion. 3. Echo 05/07/2019: Normal LV size, wall motion, systolic function. EF 55-60%. Mild LVH. No significant valvular abnormalities. 4. Cardiac catheterization 06/11/2019: Distal LM CA 30%. Ostial LAD 40-50%. Proximal LAD 30-40%. Mid LAD 50-70% visually (FFR 0.8). Diffuse proximal RCA 20%. Mid RCA 10-20%. Distal RCA 20%. LVEDP 13. PCI of mid LAD with 2.75 x 18 mm cynthia ANJALI. 5. Dobutamine stress echo 01/29/2020: No ischemic changes reported at 78% MPHR. Resting EF normal. 6. Cardiac catheterization 03/21/2020: Distal LM CA 50-60%. Ostial LAD 50-70%. Proximal LAD 40-50%. Mid circumflex 10%. OM3 10-20%. Dominant RCA. Proximal RCA 20%. Mid RCA 30%. Distal RCA 20%. LVEDP 14. IVUS demonstrated severe distal LM CA (MLA 4.5 mm2) and diffuse proximal LAD disease (MLA 3.1 mm2). 7. CABG x2 04/13/2020 [facility]: GARZA to LAD and SVG to OM. 8. ROBBY 04/13/2020 [facility]: Postoperatively, LV systolic function was normal EF 55- 60%. Normal wall motion. No significant valvular abnormalities. No PFO. He was admitted on 07/26/2020 with chest discomfort. He states that he came to the hospital due to a pleuritic discomfort in his left axillary line, near his left flank. It started approximately 7 days ago, worsened for the next 2 days before improving the following days. It is a sharp pain and reminds him of prior pleurisy that he had in the past. He was concerned that he was developing a pneumonia or other illness. After this started, he fell the next day, slipping on the ice. He hit the side of his left chest, left neck, left shoulder against his house and those areas have been painful ever since. The left chest, near his midclavicular line, has had focal tenderness since then. This pain has been constant since the fall but has improved over the past few days. Despite the symptoms, he has continued to be active. He has been shoveling snow and denies angina. Dyspnea with exertion has resolved following CABG. He has walked up to 2 miles per day and states that this is the for this that he has been able to walk in a long time. He did have 2 episodes of exertional lightheadedness briefly this past weekend while wearing a mask. He denies syncope. He denies shortness of breath, orthopnea, edema, or bleeding such as melena, hematochezia, or hematuria. He denies fevers, chills, abdominal pain, nausea, or vomiting. He states that his pleuritic discomfort is much improved. While at his PCPs office, he was noted to have inferolateral T-wave abnormality which was new compared to his pre CABG ECG and therefore was sent to the emergency department. While here, he has had serial troponin levels which were negative. Review of systems: As above. Review of systems otherwise negative/unremarkable. Family history: Eldest son had IN in his 20s to 30. Social history: Quit smoking in 1995 after approximately 60 pack years. Occasional alcohol. He has 2 sons. Grandchildren. He enjoys hunting and fishing. He lives at home with his . In the past, his has accompanied him in the office. He is alone in his hospital room today. Allergies Allergy/AdvReac Type Severity Reaction Status Date / Time clindamycin Allergy Severe hives, Verified 07/26/20 18:49 swellling short of breath bee venom protein (honey bee) Allergy Unknown CAN'T Verified 07/26/20 18:49 REMEMBER insulin regular Allergy Unknown CAN'T Verified 07/26/20 18:49 [From Humulin R Regular REMEMBER U-100 Insuln] mold Allergy Unknown CAN'T Verified 07/26/20 18:49 REMEMBER Penicillins Allergy Unknown RASH/TROUBLE Verified 07/26/20 18:49 BREATHING Sulfa (Sulfonamide Allergy Unknown RASH/TROUBLE Verified 07/26/20 18:49 Antibiotics) BREATHING DUST MITES Allergy Unknown CAN'T Uncoded 07/26/20 18:49 REMEMBER Home Medications Medication Instructions Recorded Confirmed Type loratadine [Claritin] 10 mg PO QAM 09/30/18 07/26/20 History cholecalciferol (vitamin D3) 50 2,000 units PO DAILY 01/05/19 07/26/20 History mcg (2,000 unit) capsule aspirin 81 mg tablet,delayed 81 mg PO DAILY #90 tab 06/12/19 07/26/20 Rx release blood sugar diagnostic #200 ea 09/02/19 07/26/20 Rx lancing device #1 ea 09/02/19 07/26/20 Rx clopidogrel 75 mg tablet 75 mg PO DAILY #90 tab 09/07/19 07/26/20 Rx albuterol sulfate 90 mcg/actuation 2 puffs INHALATION Q4H PRN #6.7 gm 09/08/19 07/26/20 Rx aerosol inhaler fluticasone propionate 50 2 sprays INTRANASAL QAM #16 gm 11/18/19 07/26/20 Rx mcg/actuation nasal spray,suspension cetirizine 10 mg tablet 10 mg PO DAILY tab 01/11/20 07/26/20 History losartan 100 mg tablet 100 mg PO DAILY #90 tab 02/04/20 07/26/20 Rx blood-glucose meter #1 ea 03/10/20 07/26/20 Rx lancets 30 gauge #200 ea 03/10/20 07/26/20 Rx pen needle, diabetic 32 gauge x #200 ea 03/10/20 07/26/20 Rx 5/32" nitroglycerin 0.4 mg sublingual 0.4 mg SL Q5M PRN #25 tab 03/17/20 07/26/20 Rx tablet duloxetine 60 mg capsule,delayed 60 mg PO BID #180 cap 03/22/20 07/26/20 Rx release tramadol 50 mg tablet 50 mg PO Q8H PRN #30 tab 04/04/20 07/26/20 Rx dapagliflozin 10 mg tablet 10 mg PO DAILY #90 tab 04/27/20 07/26/20 Rx doxazosin 1 mg tablet 1 mg PO QPM #90 tab 05/16/20 07/26/20 Rx metoprolol succinate 25 mg 25 mg PO BID #180 tab 05/16/20 07/26/20 Rx tablet,extended release 24 hr cyclobenzaprine 5 mg tablet 2.5 mg PO TID PRN #14 tab 05/23/20 07/26/20 Rx hydrochlorothiazide 25 mg tablet 25 mg PO DAILY #90 tab 06/02/20 07/26/20 Rx levothyroxine 75 mcg tablet 75 mcg PO DAILY tab 06/02/20 07/26/20 History atorvastatin 40 mg tablet 40 mg PO DAILY #90 tab 06/27/20 07/26/20 Rx insulin glargine 100 unit/mL (3 40 unit SUBCUT DAILY 90 Days #36 ml 06/27/20 07/26/20 Rx mL) subcutaneous pen pantoprazole 40 mg tablet,delayed 40 mg PO DAILY PRN #90 tab 07/14/20 07/26/20 Rx release aspirin 325 mg PO DAILY #7 tab 07/27/20 Rx atorvastatin 80 mg PO DAILY 30 Days #60 tab 07/27/20 Rx Patient History Medical History Asthma USES PRN INH SUMMER MONTHS ONLY CAD (coronary artery disease) Diabetes mellitus, type 2 NIDDM Distal myopathy Dyslipidemia GERD (gastroesophageal reflux disease) Agustín's thyroiditis History of cervical fracture 2012 History of colon polyps History of fatty infiltration of liver History of gout History of stomach ulcers Hypertension Hypothyroidism IBS (irritable bowel syndrome) Migraine Nasal fracture Neuropathy Osteoarthritis 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 DONTA Flowers6M - SHORT TERM MEMORY ISSUES Vitamin D deficiency Surgical History H/O repair of rotator cuff History of appendectomy History of arthroscopic knee surgery History of cardiac cath History of carpal tunnel release of both wrists History of cataract surgery History of cholecystectomy History of coronary artery stent placement (06/11/19) History of sinus surgery S/P CABG x 2 (04/13/20) S/P foot surgery S/P tonsillectomy and adenoidectomy Family History Mother Diabetes Kidney disease Aunt Colorectal cancer FH: ovarian cancer Father Liver cancer Metastatic to brain and lung Hypertension Lung cancer Cancer brain Brother Pancreatic cancer Denies family history of Prostate cancer Myocardial infarction Breast cancer Social History Smoking Status: Former smoker packs per day: 2; Years Smoked: 20; Second Hand Exposure: No; Hx Alcohol Use: No Hx Substance Use: No Preferred Language: Gabonese Communication Ability: Effective Visual Impairment: Limited Hearing Ability: Normal Digital Sales Representative Required: No Beliefs That Will Affect Care: None marital status: Current Living Situation: Family current occupational status: employed and retired Feels Safe at Home: Yes Childhood Exposure to Second-Hand Smoke: No caffeine: Yes (Coffee x 2 per day. ) during the past year weight has: decreased > 10 lbs Dental Care, Regularly: Yes Physical Activity Frequency: Daily Seatbelt Use: always Sunscreen Use: Yes Assistive Devices: Glasses Physical Exam Physical Exam: Gen.: No acute distress. Alert and oriented. HEENT: Anicteric sclera. Neck: No JVD. No bruits. Normal carotid upstrokes bilaterally. Cardiac: PMI was nonpalpable. No ventricular heave. Regular. Normal S1-S2. No murmurs, rubs, or gallops. Pulmonary: Clear to auscultation bilaterally without wheezes, rales, or rhonchi. Abdomen: Soft, nontender, nondistended, with normoactive bowel sounds. No bruits noted. Extremities: 2+ radial pulses bilaterally. 2+ posterior tibialis pulses bilaterally. No edema or cyanosis. No palpable cords. Psychiatric: Affect appears appropriate. Chest: Focal tenderness left chest, reproducing his chest discomfort as noted in HPI. Sternotomy site is clean, dry, and intact without erythema or discharge. Results & Data ([facility]) Vital Signs (Past 12 Hours) Vital Signs Temp Pulse Pulse Resp BP BP Pulse Ox 07/27/20 07:41 36.6 C 64 18 138/88 92 07/27/20 04:54 36.6 C 76 16 131/90 91 07/26/20 23:25 36.8 C 76 18 144/88 H 93 07/26/20 22:57 69 16 126/72 93 07/26/20 22:00 85 13 148/99 H 93 07/26/20 21:31 82 12 93 07/26/20 21:30 78 14 155/100 H 94 Laboratory Results Laboratory Results - last 24 hr 07/26/20 07/26/20 07/26/20 17:35 17:35 17:35 WBC 9.80 RBC 5.95 Hgb 17.8 Hct 51.8 MCV 87.1 MCH 29.9 MCHC 34.4 RDW Std Deviation 40.9 RDW Coeff of Sasha 12.9 Plt Count 231 MPV 10.5 H Immature Gran % (Auto) 0.2 Neut % (Auto) 60.8 Lymph % (Auto) 26.6 [place] % (Auto) 10.1 Eos % (Auto) 1.8 Baso % (Auto) 0.5 Neut # (Auto) 5.95 Lymph # (Auto) 2.61 [place] # (Auto) 0.99 H Eos # (Auto) 0.18 Baso # (Auto) 0.05 Immature Gran # (Auto) 0.02 PT 10.3 INR 1.0 APTT 26.3 PTT Ratio 1.0 Sodium 140 Potassium 3.2 L Chloride 102 Carbon Dioxide 32 Anion Gap 6.0 BUN 19 H Creatinine 1.02 Est Cr Clr Drug Dosing 83.1 Est GFR ( Amer) 88.4 Est GFR (Non-Af Amer) 76.2 BUN/Creatinine Ratio 19.1 Glucose 148 H POC Glucose Estimat Average Glucose Hemoglobin A1c Calcium 9.2 Total Bilirubin 0.5 AST 18 ALT 27 Alkaline Phosphatase 124 H Troponin I < 0.015 Total Protein 8.4 H Albumin 4.1 Globulin 4.3 H Albumin/Globulin Ratio 1.0 Triglycerides Cholesterol LDL Cholesterol, Calc VLDL Cholesterol, Calc HDL Cholesterol Cholesterol/HDL Ratio Specimen Hemolysis COVID-19 Eval Order SARS-CoV-2, RNA, NAAT 07/26/20 07/26/20 07/27/20 22:06 22:06 01:37 WBC RBC Hgb Hct MCV MCH MCHC RDW Std Deviation RDW Coeff of Sasha Plt Count MPV Immature Gran % (Auto) Neut % (Auto) Lymph % (Auto) [place] % (Auto) Eos % (Auto) Baso % (Auto) Neut # (Auto) Lymph # (Auto) [place] # (Auto) Eos # (Auto) Baso # (Auto) Immature Gran # (Auto) PT INR APTT PTT Ratio Sodium Potassium Chloride Carbon Dioxide Anion Gap BUN Creatinine Est Cr Clr Drug Dosing Est GFR ( Amer) Est GFR (Non-Af Amer) BUN/Creatinine Ratio Glucose POC Glucose Estimat Average Glucose Hemoglobin A1c Calcium Total Bilirubin AST ALT Alkaline Phosphatase Troponin I < 0.015 Total Protein Albumin Globulin Albumin/Globulin Ratio Triglycerides Cholesterol LDL Cholesterol, Calc VLDL Cholesterol, Calc HDL Cholesterol Cholesterol/HDL Ratio Specimen Hemolysis COVID-19 Eval [facility] SARS-CoV-2, RNA, NAAT NEGATIVE 07/27/20 07/27/20 07/27/20 07:32 07:32 07:32 WBC 8.24 RBC 5.88 Hgb 17.7 Hct 50.9 MCV 86.6 MCH 30.1 MCHC 34.8 RDW Std Deviation 41.3 RDW Coeff of Sasha 13.0 Plt Count 216 MPV 10.8 H Immature Gran % (Auto) Neut % (Auto) Lymph % (Auto) [place] % (Auto) Eos % (Auto) Baso % (Auto) Neut # (Auto) Lymph # (Auto) [place] # (Auto) Eos # (Auto) Baso # (Auto) Immature Gran # (Auto) PT INR APTT PTT Ratio Sodium 140 Potassium 3.7 D Chloride 105 Carbon Dioxide 28 Anion Gap 7.0 BUN 16 Creatinine 0.86 Est Cr Clr Drug Dosing 97.5 Est GFR ( Amer) 104.7 Est GFR (Non-Af Amer) 90.4 BUN/Creatinine Ratio 18.9 Glucose 123 H POC Glucose Estimat Average Glucose 214 Hemoglobin A1c 9.1 H Calcium 9.2 Total Bilirubin AST ALT Alkaline Phosphatase Troponin I Total Protein Albumin Globulin Albumin/Globulin Ratio Triglycerides 175 H Cholesterol 155 LDL Cholesterol, Calc 87 VLDL Cholesterol, Calc 35 HDL Cholesterol 33 Cholesterol/HDL Ratio 5 Specimen Hemolysis COVID-19 Eval Order SARS-CoV-2, RNA, NAAT 07/27/20 07/27/20 07:32 07:40 WBC RBC Hgb Hct MCV MCH MCHC RDW Std Deviation RDW Coeff of Sasha Plt Count MPV Immature Gran % (Auto) Neut % (Auto) Lymph % (Auto) [place] % (Auto) Eos % (Auto) Baso % (Auto) Neut # (Auto) Lymph # (Auto) [place] # (Auto) Eos # (Auto) Baso # (Auto) Immature Gran # (Auto) PT INR APTT PTT Ratio Sodium Potassium Chloride Carbon Dioxide Anion Gap BUN Creatinine Est Cr Clr Drug Dosing Est GFR ( Amer) Est GFR (Non-Af Amer) BUN/Creatinine Ratio Glucose POC Glucose 129 H Estimat Average Glucose Hemoglobin A1c Calcium Total Bilirubin AST ALT Alkaline Phosphatase Troponin I < 0.015 Total Protein Albumin Globulin Albumin/Globulin Ratio Triglycerides Cholesterol LDL Cholesterol, Calc VLDL Cholesterol, Calc HDL Cholesterol Cholesterol/HDL Ratio Specimen Hemolysis COVID-19 Eval Order SARS-CoV-2, RNA, NAAT Diagnostic Findings Telemetry personally reviewed: No arrhythmia. sinus rhythm. Echo 07/27/2020: Normal LV size, wall motion, systolic function. EF 55-60%. Moderate LVH. No significant valvular abnormalities. ECG personally reviewed as noted in HPI. Repeat ECG ordered today and reviewed. ECG 07/27/2020: Sinus rhythm 71 beats per minute. Inferolateral T-wave abnormality, similar to initial ECG on 07/26/2020. Chest x-ray 07/26/2020: Mild cardiomegaly with no acute cardiopulmonary abnormality per Radiology. CTA chest 07/26/2020: No PE. No airspace consolidation. Mild diffuse peribronchial thickening suggest bronchitis/reactive airway disease. Venous Doppler 07/26/2020: No DVT in the left lower extremity. Medications Administered Current Inpatient Medications Acetaminophen (Acetaminophen 325 Mg Tab) 650 mg PO Q4H PRN PRN Reason: Pain or Fever Stop: 08/25/20 23:21 Albuterol (Albuterol Hfa 8 Gm Inhaler) 2 puffs INH Q4H PRN PRN Reason: Shortness Of Breath Stop: 08/25/20 23:21 Aspirin (Aspirin 81 Mg Ectab) 81 mg PO DAILY [facility] Stop: 08/26/20 08:59 Last Admin: 07/27/20 08:21 Dose: 81 mg Documented by: Atorvastatin Calcium (Atorvastatin 40 Mg Tab) 80 mg PO DAILY [facility] Stop: 08/26/20 08:59 Cetirizine HCl (Cetirizine Hcl 10 Mg Tablet) 10 mg PO DAILY [facility] Stop: 08/26/20 08:59 Last Admin: 07/27/20 08:22 Dose: 10 mg Documented by: Clopidogrel Bisulfate (Clopidogrel Bisulfate 75 Mg Tab) 75 mg PO DAILY [facility] Stop: 08/26/20 08:59 Last Admin: 07/27/20 08:22 Dose: 75 mg Documented by: Cyclobenzaprine HCl (Cyclobenzaprine Hcl 5 Mg Tab) 2.5 mg PO TID PRN PRN Reason: muscle spasm Stop: 08/25/20 23:21 Last Admin: 07/27/20 05:02 Dose: 2.5 mg Documented by: Dextrose (Dextrose 50% 50 Ml Syringe) 25 - 50 ml IV UD PRN; Protocol PRN Reason: Hypoglycemia Protocol Stop: 08/25/20 23:21 Doxazosin Mesylate (Doxazosin Mesylate 1 Mg Tab) 1 mg PO QPM [facility] Stop: 08/26/20 20:59 Duloxetine HCl (Duloxetine Hcl 60 Mg Cap) 60 mg PO BID [facility] Stop: 08/26/20 08:59 Last Admin: 07/27/20 08:22 Dose: 60 mg Documented by: Fluticasone Propionate (Fluticasone Propionate Na Spr 16 Gm Btl) 2 sprays NA QAM [facility] Stop: 08/26/20 08:59 Last Admin: 07/27/20 08:23 Dose: 2 sprays Documented by: Glucagon (Glucagon For Inj 1 Mg Vial) 1 mg SQ UD PRN; Protocol PRN Reason: Hypoglycemia Protocol Stop: 08/25/20 23:21 Glucose (Glucose 10 Tabs/Tube) 4 - 8 tabs PO UD PRN; Protocol PRN Reason: Hypoglycemia Protocol Stop: 08/25/20 23:21 Glucose (Glucose 40% Gel 15 Gm Tube) 15 - 30 gm PO UD PRN; Protocol PRN Reason: Hypoglycemia Protocol Stop: 08/25/20 23:21 Heparin Sodium (Porcine) (Heparin Sod 5,000 Unit/0.5 Ml Vial) 5,000 units SQ Q12 [facility] Stop: 08/26/20 08:59 Last Admin: 07/27/20 08:22 Dose: 5,000 units Documented by: Hydrochlorothiazide (Hydrochlorothiazide 25 Mg Tab) 25 mg PO DAILY [facility] Stop: 08/26/20 08:59 Last Admin: 07/27/20 08:19 Dose: 25 mg Documented by: Insulin Aspart (Insulin Aspart 100 Units/Ml 3 Ml Pen) 0 units SC ACHS [facility] Stop: 08/26/20 07:29 Insulin Glargine (Insulin Glargine Solostar 100 Units/Ml 3 Ml Pen) 40 units SQ DAILY [facility] Stop: 08/26/20 08:59 Levothyroxine Sodium (Levothyroxine Sodium 75 Mcg Tablet) 75 mcg PO DAILYBB [facility] Stop: 08/26/20 06:29 Last Admin: 07/27/20 06:12 Dose: 75 mcg Documented by: Loratadine (Loratadine 10 Mg Tab) 10 mg PO QAM [facility] Stop: 08/26/20 08:59 Last Admin: 07/27/20 08:20 Dose: 10 mg Documented by: Losartan Potassium (Losartan Potassium 50 Mg Tab) 100 mg PO DAILY [facility] Stop: 08/26/20 08:59 Last Admin: 07/27/20 08:20 Dose: 100 mg Documented by: Metoprolol Succinate (Metoprolol Succ 25mg Ext Rel Tab) 25 mg PO BID [facility] Stop: 08/25/20 23:21 Last Admin: 07/27/20 08:22 Dose: 25 mg Documented by: Miscellaneous (Carbohydrates For Hypoglycemia ) 15 - 30 gm PO UD PRN PRN Reason: Hypoglycemia Protocol Stop: 08/25/20 23:21 Morphine Sulfate (Morphine Sulfate 2 Mg/Ml Carp) 2 mg IV Q30M PRN PRN Reason: Chest Pain Stop: 08/09/20 23:21 Nitroglycerin (Nitroglycerin Sl 0.4 Mg/Tab Tab) 0.4 mg SL Q5M PRN PRN Reason: chest pain Stop: 08/25/20 23:21 Ondansetron HCl (Ondansetron Inj 2 Mg/Ml 2 Ml Vial) 4 mg IV Q6H PRN PRN Reason: Nausea Stop: 08/25/20 23:21 Pantoprazole Sodium (Pantoprazole 40 Mg Tab) 40 mg PO DAILY PRN PRN Reason: Indigestion Stop: 08/25/20 23:21 Last Admin: 07/27/20 08:21 Dose: 40 mg Documented by: Polyethylene Glycol (Polyethylene (Miralax) 17 Gm Pack) 17 gm PO DAILY PRN PRN Reason: Constipation Stop: 08/25/20 23:21 Tramadol HCl (Tramadol Hcl 50 Mg Tablet) 50 mg PO Q8H PRN PRN Reason: pain Stop: 08/25/20 23:21 PG Care Time/CCT Total # of Minutes Spent Total Time Spent with Patient: Total time spent is greater than 50% in coordination of care (as documented) at patient's floor/unit and/or counseling patient: Coding Level of Care Code 34594 Office/Outpt Visit, Est Diagnoses Left-sided chest pain R07.9 Abnormal ECG R94.31 CAD (coronary artery disease) I25.10 Status post double vessel coronary artery bypass Z95.1 History of coronary artery stent placement Z95.5 Hypertension I10 Dyslipidemia E78.5
[2020-07-27] MEDS: INSULIN ASPART 100 UNITS/ML 3 ML PEN SC SCH ×2 (09:44→11:51)
--- NOTE | 2020-07-27 13:08 | Discharge Summary ---
Date of Service July 27, 2020 Admission HPI Per Admitting Provider 65-year-old male past medical history significant for CAD status post CABG March 2020, hyperlipidemia, Agustín's thyroiditis, asthma, DM 2 on insulin, GERD, chronic back pain on tramadol presents for 4 days of intermittent chest pain with exertion with associated chest tightness, "like it is harder to take a deep breath". Also endorses some bilateral leg pain. Does report that about a week ago he did fall and hit his left chest, and he does endorse having been diagnosed with pneumonia in the past. Advised to seek out emergency medical care by family members. In ER he was noted to have negative troponin, hypertension to 150s/100s, chest x-ray without findings suggestive of infection, CT PE protocol performed without findings suggestive of PE, no DVT noted on ultrasound. EKG performed which showed T wave inversions in inferolateral leads; this is as compared to E[place] 14 [place] [facility] [place] team consulted for admission. On my interview patient is complaining of 5 out of 10 midsternal chest pain without radiation to jaw or arm, seems to worsen with deep inspiration, but denies shortness of breath, diaphoresis, nausea or vomiting, abdominal pain, dizziness or headache. Admission Exam Per Admitting Provider Constitutional: WD/WN, vitals as above Eyes: PERRL, conjunctivae normal, anicteric sclerae ENMT: external ear and nose normal, oropharynx normal Neck: normal visual inspection Respiratory: normal respiratory effort, lungs clear to auscultation Cardiovascular: RRR, no murmur, no edema Gastrointestinal (Abdomen): normal bowel sounds, soft, nontender, no hepatosplenomegaly Musculoskeletal: no cyanosis or clubbing, extremities motor strength 5/5 mild tenderness to palpation noted over left chest wall Skin: no rashes, warm and dry sternotomy scar well healed, no drainage Neurologic: AAOx3, normal speech. No tremor. No motore or sensory deficits. Psychiatric: A+Ox3, euthymic affect Principal Diagnosis pleuritic chest pain Discharge Exam Constitutional WD/WN, vitals as above Eyes PERRL, conjunctivae normal, anicteric sclerae ENMT external ear and nose normal, oropharynx normal Neck normal visual inspection Respiratory normal respiratory effort, lungs clear to auscultation Cardiovascular RRR, no murmur, no edema Gastrointestinal (Abdomen) normal bowel sounds, soft, nontender, no hepatosplenomegaly Musculoskeletal no cyanosis or clubbing, extremities motor strength 5/5 Skin no rashes, warm and dry Psychiatric A+Ox3, euthymic affect Discharge Data Allergies Allergy/AdvReac Type Severity Reaction Status Date / Time clindamycin Allergy Severe hives, Verified 07/26/20 18:49 swellling short of breath bee venom protein (honey bee) Allergy Unknown CAN'T Verified 07/26/20 18:49 REMEMBER insulin regular Allergy Unknown CAN'T Verified 07/26/20 18:49 [From Humulin R Regular REMEMBER U-100 Insuln] mold Allergy Unknown CAN'T Verified 07/26/20 18:49 REMEMBER Penicillins Allergy Unknown RASH/TROUBLE Verified 07/26/20 18:49 BREATHING Sulfa (Sulfonamide Allergy Unknown RASH/TROUBLE Verified 07/26/20 18:49 Antibiotics) BREATHING DUST MITES Allergy Unknown CAN'T Uncoded 07/26/20 18:49 REMEMBER Consultations 07/26/20 21:50 ED Decision to Admit Stat 07/26/20 23:22 Consult Cardiology Routine Ordered Studies 07/26/20 18:12 CT angio chest PE protocol Stat US venous doppler LE LT Stat Hospital Course (1) Status post double vessel coronary artery bypass: 65 yo M PMHx significant for CAD s/p CABG March 2020, HLD, Agustín's thyroiditis, asthma, DM2 on insulin, GERD, chronic back pain on tramadol admitted for chest pain rule out in the setting of recent cardiothoracic surgery. Chest pain, worse with exertion/HLD/HTN: - Chest pain likely pleuritic in nature - History of CAD with previous PCI, and [place] [facility] [place] - With 4 days of chest pain/sensation of chest tightness with exertion, associated malaise. - CXR without findings suggestive of infection. CT PE protocol without findings suggestive of PE. No DVT on dopplers. - Initial troponin negative, trend x2 negative - EKG compared to 2019 EKG shows T wave inversions in lateral leads. - Nitro prn. - TTE EF 55-60% - HgbA1C 9.1% - LDL 87 - Continued daily aspirin, Plavix, atorvastatin, ARB, BP control, beta maynor. - Cardiology consult placed. - Discussed with Cardiology in regards to EKG changes, no EKG directly after CABG, current changes may be progression following CABG. - Increase Atorvastatin to 80mg QD, continue on discharge - Increase Aspirin to 325mg QD x7 days, then return to 81mg QD DM2: - On daily dapagliflozin, insulin glargine 40 units daily. - Hold dapagliflozin. Add SSI while inpatient. - Continue Dapagliflozin and home glargine on discharge - Patient may benefit from addition of humalog rather than further increase in basal insulin for tighter control Hypothyroidism: - Continued home levothyroxine. GERD: - No reflux symptoms noted. - Continued home pantoprazole. Asthma: - CT shows possible findings suggestive of bronchial inflammation. - Saturated well on room air. - Albuterol PRN. Chronic back pain: - Continued home tramadol, cyclobenzaprine prn. (2) CAD (coronary artery disease): (3) History of coronary artery stent placement: (4) Dyslipidemia: (5) Agustín's thyroiditis: (6) Asthma: (7) Hypertension: (8) Diabetes mellitus, type 2: (9) GERD (gastroesophageal reflux disease): (10) Chest pain, exertional: (11) Osteoarthritis: Total Time Total Time Spent Total Time Spent (In Minutes): <30 Discharge Plan Discharge Items Patient Disposition: Home - Self-Care Reason For Visit: CHEST PAIN R/O HX CABG Discharge Diagnosis: Pleurisy, secondary to viral bronchitis Activity: Resume your previous activity Non-emergency contact: Primary Care Provider and Supervisor Painting Department Call non-emergency contact if: you have any medication questions, your symptoms worsen and your pain is not controlled Follow-up/Referrals: Thalia Joseph, [Primary Care Provider] - 08/04/20 9:20 am (Please follow up with Dr. Joseph on 08/04/20 at 9:20 am. Please arrive to the office 15 minutes early for your appointment. If you are unable to keep this appointment, please call the office to reschedule at [phone].) Diet: Heart Healthy Addtl Attending Provider Instructions: Rc, It was our pleasure caring for you from 07/26 - 07/27/20 in regards to your chest pain. While you were in the hospital you were thoroughly evaluated in regards to your chest pain from a Pulmonary and Cardiologic standpoint. At this point in time we do not believe that your chest pain was due to your heart. While we did see some EKG changes on your EKG, you had not had a repeat EKG after your bypass procedure and changes can occur and be your new "normal" after the procedure. You also had CT scans that did not show signs concerning for a current pneumonia or pulmonary embolism (blood clot in lungs). You were evaluated by our Supervisor [employer]ting Department who again did not feel your current symptoms were due to your heart, but possibly more due from pleurisy as you note the pain primarily with deep inspiration. He had recommended you increase your Aspirin to regular aspirin (325mg) daily for the next 1 week and then returning to your regular dose of aspirin 81mg daily. We would also like to increase your Atorvastatin as we discussed as your LDL was 87 (prefer <70). A new prescription for Atorvastatin 80mg daily has been sent to your pharmacy. Please see below for the following instructions: -Please take Aspirin 325mg daily x1 week, a prescription has been sent to your pharmacy -Please take Atorvastatin 80mg daily, a new prescription has been sent to your pharmacy -Please continue to take your remaining home medications as prescribed -Please follow up with your PCP in the next 1-2 weeks -Please follow up with your friend of the court Dr. Mckenzie at your next scheduled appointment Pending Studies at Discharge: No Stand-Alone Forms: My [facility] Organ[employer] Maid, Smoking Cessation Medications and DC Order Prescriptions: New atorvastatin 40 mg Tablet 80 mg PO DAILY 30 Days Qty: 60 RF: 3 aspirin 325 mg tablet 325 mg PO DAILY Qty: 7 RF: 0 Continued cholecalciferol (vitamin D3) 2,000 unit capsule 2,000 units PO DAILY RF: 0 (DME) Advocate Redi-Code Strip See Rx Instructions .ROUTE .MEDSUPPLY Qty: 200 RF: 1 (DME) lancing device [TRUEdraw Lancing Device] Misc See Rx Instructions .ROUTE .MEDSUPPLY Qty: 1 RF: 0 clopidogrel 75 mg tablet 75 mg PO DAILY Qty: 90 RF: 3 albuterol sulfate [Proventil HFA] 90 mcg/actuation HFA aerosol inhaler 2 puffs inhalation Q4H PRN (Reason: Shortness Of Breath) Qty: 6.7 RF: 2 fluticasone propionate [Flonase Allergy Relief] 50 mcg/actuation spray,suspension 2 sprays INTRANASAL QAM Qty: 16 RF: 1 losartan 100 mg tablet 100 mg PO DAILY Qty: 90 RF: 1 (DME) blood-glucose meter [Advocate Redi-Code Plus] Misc See Rx Instructions .ROUTE .MEDSUPPLY Qty: 1 RF: 3 (DME) lancets [TRUEplus Lancets] 30 gauge misc See Rx Instructions .ROUTE .MEDSUPPLY Qty: 200 RF: 1 (DME) pen needle, diabetic [Easy Comfort Pen [place]] 32 gauge x 5/32" needle See Rx Instructions .ROUTE .MEDSUPPLY Qty: 200 RF: 1 duloxetine [Cymbalta] 60 mg capsule,delayed release(DR/EC) 60 mg PO BID Qty: 180 RF: 3 tramadol 50 mg tablet 50 mg PO Q8H PRN (Reason: pain) Qty: 30 RF: 0 dapagliflozin 10 mg tablet 10 mg PO DAILY Qty: 90 RF: 1 cyclobenzaprine 5 mg tablet 2.5 mg PO TID PRN (Reason: muscle spasm) Qty: 14 RF: 0 pantoprazole 40 mg tablet,delayed release (DR/EC) 40 mg PO DAILY PRN (Reason: Indigestion) Qty: 90 RF: 1 cetirizine 10 mg tablet 10 mg PO DAILY RF: 0 metoprolol succinate 25 mg tablet extended release 24 hr 25 mg PO BID Qty: 180 RF: 1 doxazosin 1 mg tablet 1 mg PO QPM Qty: 90 RF: 1 nitroglycerin 0.4 mg tablet, sublingual 0.4 mg SL Q5M PRN (Reason: chest pain) Qty: 25 RF: 4 levothyroxine 75 mcg tablet 75 mcg PO DAILY RF: 0 hydrochlorothiazide 25 mg tablet 25 mg PO DAILY Qty: 90 RF: 3 Basaglar KwikPen U-100 Insulin 100 unit/mL (3 mL) insulin pen 40 unit SUBCUT DAILY 90 Days Qty: 36 RF: 1 loratadine [Claritin] 10 mg Tablet 10 mg PO QAM RF: 0 Discontinued aspirin 81 mg tablet,delayed release (DR/EC) 81 mg PO DAILY Qty: 90 RF: 3 atorvastatin 40 mg tablet 40 mg PO DAILY Qty: 90 RF: 3 Discharge Orders: Discharge Order (Routine); Ordered 07/27/20 Ordered By: Fredrick Omer Admission Data Admit Date/Time: 07/26/20 22:29 Attending Provider: Paulie Banks Admit Provider: Barb Marina Primary Care Provider: Thalia Joseph Other Providers: Dwayne Matthew ; Hemanth Mckenzie Other Interventions: Discharge Summary Assessment (RN) Last Done: 07/27/20 13:21 Supervising Physician Co-Signing Physician Notes I personally examined the patient and verified all gallegos points of history and exam, discussed case, and agree with decision making with Dr Omer. feeling better feeling up to going home vitals noted nad pain not reproducible no focal neuro deficits breathing unlabored no accessory muscles good effort skin no rashes no pallor or icterus chest pain - pleuritic - noncardiac. stable for home. cad - increase statin given established CAD and lipids not at goal Resident Activity Tracking Resident Involvement: Resident Care Provided Care Provided: Adult Hospital Medicine
--- NOTE | 2020-07-27 16:15 | Electrocardiogram Report ---
Test Reason : Blood Pressure : / mmHG Vent. Rate : 071 BPM Atrial Rate : 071 BPM P-R Int : 186 ms QRS Dur : 104 ms QT Int : 390 ms P-R-T Axes : 058 081 114 degrees QTc Int : 423 ms Normal sinus rhythm Nonspecific ST and T wave abnormality Abnormal ECG When compared with ECG of 26-JUL-2020 17:26, (unconfirmed) No significant change was found Confirmed by Camilo Mckeon ([id number]) on 07/27/2020 4:14:34 PM Referred By: Thalia Joseph Confirmed By:Camilo Mckeon
--- NOTE | 2020-07-27 17:18 | Billing Data ---
Date of Service July 27, 2020 Coding Level of Care Code 00112 OBS Care - Discharge
[2020-07-27] MEDS ORDERED: DOXAZOSIN MESYLATE 1 MG TAB PO SCH (21:00)
--- NOTE | 2020-07-28 00:02 | Billing Data ---
Date of Service July 28, 2020 Coding Level of Care Code 54678 OBS Care - Level 3
== END 2020-07-27 14:37 | disposition home or self-care (01) ==
LOC: 2S 17:20 → ED 17:20 → SUATTDRO 22:29 → 2S 22:57

== ENCOUNTER 2024-01-21 08:06 | Observation (INO) ==
--- OUTSIDE RECORDS SUMMARY | 2024-01-21 08:25 | External Medical Summary | Continuity of Care Document ---
Author Name Unknown Organization [address] Address [address] [place] [address] [id number] Care Team Providers Care Sales Training Coordinator Name Role Phone Thalia Joseph Primary Care Physician [phone] [facility] [id number] Date(s): 01/15/24 - 01/15/24 [facility] [address] [place], [place] [id number] [facility] [address] [place] [id number] Encounter Diagnosis Osteoarthritis of left knee(Discharge Diagnosis) - 01/15/24 Discharge Disposition: Home or Self Care Attending Physician: DO King Mehwish Allergies, Adverse Reactions, Alerts Substance Criticality Severity Reaction Reaction Severity Status doxycycline Unknown Active tetracycline Unknown Active erythromycin Unknown Active quinolones (fluoroquinolone antibiotics) Unknown Active Allergy Not found in Search 1 most antibiotics cause shortness of breath and hives Active amoxicillin Unknown Active azithromycin Unknown Active cephalexin Unknown Active cephalosporins Unknown Activ e penicillins 2 sob hives Active sulfa drugs 3 sob hives Active macrolide antibiotics hives, sob Active shellfish Unable to assess criticality Moderate hives Active Bactrim Unknown Active sulfacetamide sodium ophthalmic Unknown Active Bee stings Unknown Active HumuLIN U hives at site Active penicillAMINE Unknown Active 1most antibiotics cause shortness of breath and hives 2hives, shortness of breath 3hives, shortness of breath Assessment and Plan Extracted from: Title:Office Visit Note Author:DO King Me hwish Date:01/15/24 1.Osteoarthritis of left k nee The Iovera procedure along withrisks and benefits were discussed with the patient.We had a risk and benefits discussion including side effectsof the procedurewhich may includebruising, swelling,local pain and tenderness,altered feeling at the site of treatment andtreatment failure. Patient denies a history of cryoglobulinemia, paroxysmal cold hemoglobinuria, cold urticaria or Raynaud's disease. He will be scheduled for iovera procedure of the left kneenext week, 01/20 at 3 PM. Additionally, I do thinkhe would benefit from a trial of viscosupplementation injections. We will get himauthorized for thisas he has previously had corticosteroid injections in the past. Discussed that for the iovera procedure he does not need to modify or hold any medications prior to procedure. Time: 24_mins 4 - pre-visit chart review 15 - visit, inclusive of history, exam, and discussion of assessment/plan 5_ - post-visit documentation/orders/coordination of care Immunizations Given and Recorded Vaccine Date Status Refusal Reason pneumococcal 23-valent vaccine 04/16/20 Given influenza virus vaccine, inactivated 04/16/20 Give n Medications acetaminophen 500 mg oral tablet Start: 04/19/20 9:50:00 AM EDT, 2 tab, PO, q8h, Disp# 24 tab, Refills: 0, PRN: as needed for pain, Pharmacy: [facility] Start Date: 04/19/20 Status: Ordered Admelog SoloStar 100 units/mL injectable solution Start: 12/16/23 10:28:00 AM EDT, 15 mL, 0 Refill(s) Start Date: 12/16/23 Status: Ordered Albuterol (Eqv-Proventil HFA) 90 mcg/inh inhalation aerosol Start: 04/04/20 12:49:00 PM EDT, 2 puff, inhaled, bid, as needed Start Date: 04/04/20 Status: Ordered aspirin 81 mg oral delayed release tablet Start: 03/31/20 11:57:00 AM EDT, 1 tab, PO, Daily Start Date: 03/31/20 Status: Ordered atorvastatin 80 mg oral tablet Start: 08/02/23 4:00:00 PM EST, 90 tab Start Date: 08/02/23 Status: Ordered clopidogrel 75 mg oral tablet Start: 08/02/23 4:00:00 PM EST, 90 tab Start Date: 08/02/23 Status: Ordered cyclobenzaprine 5 mg oral tablet Start: 10/01/22 11:25:00 AM EDT, 30 tab Start Date: 10/01/22 Status: Ordered doxazosin 1 mg oral tablet Start: 04/04/20 12:51:00 PM EDT, 1 tab, PO, Daily Start Date: 04/04/20 Status: Ordered DULoxetine 60 mg oral delayed release capsule Start: 04/04/20 12:48:00 PM EDT, 1 cap, PO, bid Start Date: 04/04/20 Status: Ordered EPINEPHrine 0.3 mg injectable kit Start: 10/01/22 11:25:00 AM EDT, 2 each Start Date: 10/01/22 Status: Ordered Farxiga 10 mg oral tablet Start: 10/01/22 11:25:00 AM EDT, 90 tab Start Date: 10/01/22 Status: Ordered fluticasone 50 mcg/inh nasal spray Start: 08/02/23 4:00:00 PM EST, 16 g Start Date: 08/02/23 Status: Ordered hydroCHLOROthiazide 25 mg oral tablet Start: 10/01/22 11:25:00 AM EDT, 90 tab Start Date: 10/01/22 Status: Ordered Jardiance 25 mg oral tablet Start: 09/19/23 7:50:00 AM EDT, 1 tab, PO, Daily, Disp# 30 tab Start Date: 09/19/23 Status: Ordered Lantus Solostar Pen 100 units/mL subcutaneous solution Start: 12/16/23 10:28:00 AM EDT, 45 mL, 0 Refill(s) Start Date: 12/16/23 Status: Ordered levothyroxine 75 mcg (0.075 mg) oral tablet Start: 08/02/23 4:00:00 PM EST, 90 tab Start Date: 08/02/23 Status: Ordered lisinopril 2.5 mg oral tablet Start: 04/19/20 9:52:00 AM EDT, 1 tab, PO, Daily, Disp# 30 tab, Refills: 0, Pharmacy: [facility] Start Date: 04/19/20 Status: Ordered loratadine 10 mg oral tablet Start: 04/04/20 12:46:00 PM EDT, 1 tab, PO, Daily Start Date: 04/04/20 Status: Ordered Medical Marijuana Start: 04/26/20 11:11:00 AM EST, See Instructions, 1 drop under the tounge, prn Start Date: 04/26/20 Status: Ordered metoprolol tartrate 25 mg oral tablet Start: 04/19/20 9:49:00 AM EDT, 1 tab, PO, bid, Disp# 90 tab, Refills: 0, Pharmacy: [facility] Start Date: 04/19/20 Status: Ordered nitroglycerin 0.4 mg sublingual tablet Start: 12/16/23 10:28:00 AM EDT, 25 each, 0 Refill(s) Start Date: 12/16/23 Status: Ordered pantoprazole 40 mg oral delayed release tablet Start: 10/01/22 11:24:00 AM EDT, 90 tab Start Date: 10/01/22 Status: Ordered predniSONE 20 mg oral tablet Start: 12/16/23 10:28:00 AM EDT, 10 tab, 0 Refill(s) Start Date: 12/16/23 Status: Ordered Synvisc 16 mg/2 mL intra-articular solution Start: 01/16/24 9:48:00 AM EDT, 16 mg =, intra-articular, q7days, Disp# 6 mL, Refills: 0, 3 syringesfor L knee. Please ship to physician's office: [address] [place] [place] [address], [place] [address], Note to Pharmacy: L KNEE DJD [id number], Pharmacy: [facility] Start Date: 01/16/24 Stop Date: 02/06/24 Status: Ordered traMADol 50 mg oral tablet Start: 04/19/20 9:50:00 AM EDT, 1 tab, PO, q6h, Disp# 30 tab, Refills: 0, PRN: pain - moderate, Pharmacy: [facility] Start Date: 04/19/20 Status: Ordered Vitamin D3 Start: 04/04/20 12:47:00 PM EDT, 2,000 Int_Unit =, PO, Daily Start Date: 04/04/20 Status: Ordered Mental Status 01/15/24 Barriers to Learning one year None evide nt Mandatory Health Literacy Documentation Yes Health Literacy Communication Barriers N ever Primary Language Welsh Problem List Condition Confirmation Course Effective Dates Status H ealth Status Informant Right ankle pain Confirmed Active Cervical spondylosis with radiculopathy Confirmed Active CAD (coronary artery disease) Confirmed Active Tibialis posterior tendinopathy Confirmed Active Knee effusion, left Confirmed Active Left cervical radiculopathy Confirmed Active Left lumbar radiculopathy Confirmed Active Osteoarthritis of left knee Confirmed Active Knee pain, left Confirmed Active Lumbar foraminal stenosis Confirmed Active Diagnosis Diagnosis Type Effective Dates Health Status Clinical Service Informant Osteoarthritis of left knee Discharge Diagnosis 01/15/24 Non-Specified Procedures Procedure Date Related Diagnosis Body Site Status Rotator cuff repair, bilateral 2011 Completed Arthroscopy of bilateral knees 1970 Completed Appendectomy Completed Carpal tunnel release bilateral Completed Cholecystectomy Completed Foot repair, bilateral, platerf. Completed Operation on nasal sinus Completed Tonsillectomy Completed Social History Social History Type Response Smoking Status Never smoked cigaret bonnie Sex Male Sex Representation Male (finding) Ortho Outpt Note * DO King Mehwish: PERFORM Event Display: Ortho Outpt Note Authored Date: [id number] Chief Complaint f/u from Iovera treatment to left leg History of Present Illness Jane is a 68yo male who presents forfollow-up ofleft knee arthritis. He had the iovera procedure of his left knee completed on 10/01/2023. He notes that he had really good reliefup until approximately 2-3 weeks ago. 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 He notes that he has previously had corticosteroid injections as well but would like to avoid those. He does not recall getting viscosupplementation injections in the past. For pain relief he will occasionally take a Tylenol. Pretreatmentquestionnaire Stiffness 5/10 Pain with twisting 6/10 Pain with knee extension 3/10 Pain with stairs 5/7 Pain with standing upright 3/10 Difficulty with rising from sitting 5/10 Difficulty with bending to the floor 7/10 Physical Exam GENERAL APPEARANCE: The patient is alert, oriented and in no acute distress. HEENT: Head is normocephalic/atraumatic. LUNGS: Respirations even and unlabored. EXTREMITIES: No cyanosis, clubbing or edema. NEUROLOGICAL: Grossly non-focal exam. SKIN: Warm and dry without any rash. MUSCULOSKELETAL: _ Left knee: There is no erythema, ecchymosis or edema. There is a scar noted from previousiovera treatment of the ISN treatment line. Tenderness to palpation over bilateral patellar facets aswell as lateral joint line and medial joint line. Active range of motion is 0/30/100 degrees. Assessment/Plan 1.Osteoarthritis of left knee The Iovera procedure along withrisks and benefits were discussed with the patient.We had a risk and benefits discussion including side effectsof the procedurewhich may includebruising, swelling,local pain and tenderness,altered feeling at the site of treatment andtreatment failure. Patient denies a history of cryoglobulinemia, paroxysmal cold hemoglobinuria, cold urticaria or Raynaud's disease. He will be scheduled for iovera procedure of the left kneenext week, 01/20 at 3 PM. Additionally, I do thinkhe would benefit from a trial of viscosupplementation injections. We will get himauthorized for thisas he has previously had corticosteroid injections in the past. Discussed that for the iovera procedure he does not need to modify or hold any medications prior toprocedure. Time: 24_mins 4 - pre-visit chart review 15 - visit, inclusive of history, exam, and discussion of assessment/plan 5_ - post-visit documentation/orders/coordination of care Problem List/Past Medical History Ongoing CAD (coronary artery disease) Cervical spondylosis with radiculopathy Knee effusion, left Knee pain, left Left cervical radiculopathy Left lumbar radiculopathy Lumbar foraminal stenosis Osteoarthritis of left knee Right ankle pain Tibialis posterior tendinopathy Procedure/Surgical History Rotator cuff repair, bilateral| Service Date: rthroscopy of bilateral knees| Service Date: 1969TonsillectomyCarpal tunnel release bilateralOperation on nasal sinusCholecystectomyAppendectomyFoot repair, bilateral, platerf. Medications acetaminophen(acetaminophen 500 mg oral tablet), 1000 mg= 2 tab, PO, q8h, PRN albuterol(Albuterol (Eqv-Proventil HFA) 90 mcg/inh inhalation aerosol), 2 puff, inhaled, bid aspirin(aspirin 81 mg oral delayed release tablet), 81 mg= 1 tab, PO, Daily atorvastatin(atorvastatin 80 mg oral tablet) cannabis(Medical Marijuana), See Instructions cholecalciferol(Vitamin D3), 2000 Int_Unit, PO, Daily clopidogrel(clopidogrel 75 mg oral tablet) cyclobenzaprine(cyclobenzaprine 5 mg oral tablet) dapagliflozin(Farxiga 10 mg oral tablet) doxazosin(doxazosin 1 mg oral tablet), 1 mg= 1 tab, PO, Daily DULoxetine(DULoxetine 60 mg oral delayed release capsule), 60 mg= 1 cap, PO, bid empagliflozin(Jardiance 25 mg oral tablet), 25 mg= 1 tab, PO, Daily EPINEPHrine(EPINEPHrine 0.3 mg injectable kit) fluticasone nasal(fluticasone 50 mcg/inh nasal spray) hydroCHLOROthiazide(hydroCHLOROthiazide 25 mg oral tablet) insulin glargine(Lantus Solostar Pen 100 units/mL subcutaneous solution) insulin lispro(Admelog SoloStar 100 units/mL injectable solution) levothyroxine(levothyroxine 75 mcg (0.075 mg) oral tablet) lisinopril(lisinopril 2.5 mg oral tablet), 2.5 mg= 1 tab, PO, Daily loratadine(loratadine 10 mg oral tablet), 10 mg= 1 tab, PO, Daily metoprolol(metoprolol tartrate 25 mg oral tablet), 25 mg= 1 tab, PO, bid nitroglycerin(nitroglycerin 0.4 mg sublingual tablet) pantoprazole(pantoprazole 40 mg oral delayed release tablet) predniSONE(predniSONE 20 mg oral tablet) traMADol(traMADol 50 mg oral tablet), 50 mg= 1 tab, PO, q6h, PRN Allergies shellfish (Moderate)hives Allergy Not found in Searchmost antibiotics cause shortness of breath and hives BactrimUnknown Bee stingsUnknown HumuLIN Uhives at site amoxicillinUnknown azithromycinUnknown cephalexinUnknown cephalosporinsUnknown doxycyclineUnknown erythromycinUnknown macrolide antibioticshives, sob penicillAMINEUnknown penicillinssob, hives quinolones (fluoroquinolone antibiotics)Unknown sulfa drugssob, hives sulfacetamide sodium ophthalmicUnknown tetracyclineUnknown Social History Smoking Status Never smoked cigarettes Immunizations Vaccine Date Status pneumococcal 23-valent vaccine 04/16/2020 Given influenza virus vaccine, inactivated 04/16/2020 Given Recommendations Health Maintenance Pending(in the next year) OverDue Colorectal Cancer Screening due06/07/22and every 1year Due Adult Influenza Vaccine due12/22/23and every 1year Adult COVID-19 Vaccination due01/15/24Unknown Frequency Adult Social Determinants of Health Screening due01/15/24Unknown Frequency Adult Tdap/Td Vaccine due01/15/24Unknown Frequency Hepatitis C Screening due01/15/24One-time only Medicare Annual Wellness Visit due01/15/24and every 1year Shingles Vaccine due01/15/24One-time only Due In Future Body Mass Index not due until08/02/24and every 366day Satisfied(in the past 1 year) Satisfied Body Mass Index on08/02/23.Satisfied by ARIEL Jones Cassidy Electronic Signature on File Electronically Reviewed/Signed by: Aster King DO Author Signature Dt/Tm:01/15/2024 02:05 PM Division of Sports Medicine MM Patient Care team information Care Team Personnel Name: CELSA Gold Mayeen R Position: Nurse Pract - CT Surgery Member Role: Lifetime Relationship Address: [address] [place] [id number] [place] Name: MD Joseph Cara M Position: Referring DIRECT Member Role: Primary Care Provider Address: [address] [place] [id number] [place] Name: Palomo Ames Christine Position: Pharmacist Member Role: Pharmacy - Lifetime Address: [address] [place] [address] [place] Care Team Related Persons Name: REMBERTO COOPER"
[2024-01-21] MEDS: ONDANSETRON INJ 2 MG/ML 2 ML VIAL IV STA (08:33)
[2024-01-21] MEDS: SODIUM CHLORIDE 0.9% 2,000 ML IV ONE (08:33)
--- NOTE | 2024-01-21 08:46 | Emergency Department Note ---
Impression & Plan Chest pain, Campylobacter diarrhea, Nausea, vomiting, and diarrhea, Acute hypokalemia ED Provider Note HISTORY OF PRESENT ILLNESS: Patient is a 68-year-old male presenting with chest pain, vomiting and diarrhea. Patient reports that he has been unable to keep down any solid or liquid foods for the last 3 days. Reports that 3 days ago, he started having some nausea and a few episodes of vomiting. Reports that over the last 3 days he continues to be nauseous and had intermittent episodes of vomiting or diarrhea. Reports has been unable to tolerate ice chips, water or even his daily medications. He states that he woke up this morning and had substernal chest pain after an episode of vomiting. He locates the pain to the substernal region and denies any radiation. He states that the pain feels like a pressure sensation. He has a history of cardiac stents and a cardiac bypass. He is on aspirin and Plavix. He denies any DVT or PE history. Denies any associated shortness of breath with the chest pain. He currently is feeling nauseous. He reports he felt very lightheaded earlier today. Given his chest pain and lightheadedness, the patient decided to be evaluated in the emergency department. He states that his chest pain has improved slightly from earlier this morning on arrival to the emergency department. Patient denies any recent travel. Denies any recent sick contact exposures. He denies any fevers at home. ROS: as above PHYSICAL EXAM: Constitutional: Patient appears in no acute distress. HENT: Head: Normocephalic and atraumatic. Eyes: EOMI, PERRL Mouth/Throat: Mucous membranes dry. Neck: Trachea midline. Neck supple. Cardiovascular: RRR, No murmurs, rubs or gallops. Intact distal pulses. Pulmonary/Chest: No respiratory distress. Breath sounds clear and equal bilaterally. No wheezes or rales. Abdominal: Abdomen soft, no tenderness, rebound or guarding. Musculoskeletal: No edema, tenderness or deformity noted. Skin: Warm and dry. No rash, erythema, pallor or cyanosis Psychiatric: Appropriate mood and affect for situation. Neurological: Alert and keenly responsive. CN II-XII grossly intact, moving all extremities equally and fully. MDM: - Vitals signs showed hypertension and tachycardia. - History obtained via patient. History as above. - Chronic conditions affecting care: HTN; HLD; CAD (S/p PCI and CABG); hypothyroidism; DM-2 - Differential diagnoses include, but are not limited to: Acute coronary syndrome; pulmonary embolism; dissection; tension pneumothorax; esophageal rupture; pneumonia; viral syndrome; electrolyte abnormality; dehydration - Order placed for continuous cardiac monitoring. At this time, monitor showed rate of 99 bpm with normal sinus rhythm, per my interpretation. - External medical records reviewed. Primary care visit note dated 11/19/2023 was reviewed. Patient follows in their clinic for multiple chronic etiologies, including osteoporosis and distal myopathy. - EKG interpreted by myself showed normal sinus rhythm. Rate tachycardic at 103 bpm. QT 330. No acute ischemic changes. Noted to have some slight ST depressions in leads V5 and V6. - Laboratory workup interpreted by myself showed leukocytosis (WBC 15.46) with left shift; normal PT/INR; hypokalemia (K 3.2); elevated anion gap (13); normal troponin; elevated total bilirubin (1.3) - CXR negative for pneumonia, per my interpretation - Viral respiratory panel negative - CT abdomen/pelvis with IV contrast negative for acute pathology - Patient given 2L NS and 20 mEq IV potassium for hydration and electrolyte replacement. Given 4 mg IV zofran for nausea - Stool PCR positive for Campylobacter. - Patient given 1g IV tylenol for headache and 500 mg PO azithromycin for Campylobacter infection - On reassessment, patient still feeling generally unwell. Attempted to p.o. challenge, but patient is significantly nauseous with oral intake. Reports he does not feel comfortable going home. Will contact the hospitalist for admission. - Repeat troponin within normal limits - Discussion was had with pillowcase sewer about patient's case and need for admission - Hospitalist, Dr. Bullock, consulted for admission - Patient admitted to [facility] hospitalist service for further evaluation and management. 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- last one being 10 yrs ago from fall on ice resulting in cervical fx and skull fx- life flighted [facility] History of colon polyps Lumbar spinal stenosis Osteoarthritis Neuropathy IBS (irritable bowel syndrome) Hypothyroidism Hypertension History of NM (myocardial infarction) FOLLOWS W/ MAXIMO LAST VISIT 11/08/212018...STENT X1 - [facility] 2019 - CONTINUED TO HAVE PROBLEMS...BLOCKAGE FOUND, DOUBLE BYPASS IN [place] Agustín's thyroiditis GERD (gastroesophageal reflux disease) Distal myopathy Dyslipidemia Diabetes mellitus, type 2 Cervical disc disease CAD (coronary artery disease) Asthma USES PRN INH SUMMER MONTHS ONLY Vitamin D deficiency Status post double vessel coronary artery bypass Protrusion of cervical intervertebral disc Medical History (Updated 01/21/24 @ 14:52 by Lilli Baltazar MD) Chest pain Post concussion syndrome Gait disturbance History of fatty infiltration of liver History of colon polyps Nasal fracture HX History of cervical fracture 2012 History of gout PSEUDO GOUT History of stomach ulcers 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 LONGO Q6M - SHORT TERM MEMORY ISSUES Migraine Surgical History History of colonoscopy S/P CABG x 2 (04/13/20) GARZA to LAD and SVG to OM (04/13/20) History of coronary artery stent placement (06/11/19) PCI to mid LAD w/ ANJALI S/P tonsillectomy and adenoidectomy HX S/P foot surgery HX b/l plantar fascia release History of cataract surgery RT/LEFT H/O repair of rotator cuff BL History of carpal tunnel release of both wrists History of sinus surgery History of appendectomy History of arthroscopic knee surgery BL History of cholecystectomy History of cardiac cath Family History Mother Diabetes Kidney disease Aunt Colorectal cancer FH: ovarian cancer Father Liver cancer Hypertension Lung cancer Cancer Brother Pancreatic cancer Denies family history of Prostate cancer Myocardial infarction Breast cancer Social History (Updated 07/30/23 @ 14:31 by Elly Olea LPN) Smoking Status: Former smoker Tobacco Type: Cigarettes Age Quit Using Tobacco: 41; packs per day: 2; Second Hand Exposure: No; Do You Dip or Chew Tobacco: No; Hx Alcohol Use: No Hx Substance Use: No Preferred Language: Turkish Communication Ability: Effective Visual Impairment: No Limitations Hearing Ability: Normal Lab Rn Required: No Beliefs That Will Affect Care: None marital status: Current Living Situation: Spouse current occupational status: employed 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 ) during the past year weight has: remained stable Dental Care, Regularly: Yes Physical Activity Frequency: Daily Seatbelt Use: always Sunscreen Use: Yes Assistive Devices: Cane Allergies Allergies Allergy/AdvReac Type Severity Reaction Status Date / Time bee venom protein (honey bee) Allergy Severe ANAPHYLACTI Verified 01/21/24 11:04 C clindamycin Allergy Intermediate hives, Verified 01/21/24 11:04 swellling, short of breath - SEE NOTES BELOW Influenza Virus Vaccines Allergy Intermediate HX Verified 01/21/24 11:04 HIVES,LOCALIZED SWELLING - SEE NOTES mold Allergy Mild EYES Verified 01/21/24 11:04 WATER, NOSE WATER Penicillins Allergy Mild RASH/TROUBLE Verified 01/21/24 11:04 BREATHING Sulfa (Sulfonamide Allergy Mild RASH/TROUBLE Verified 01/21/24 11:04 Antibiotics) BREATHING insulin regular Allergy Unknown PT NOT Verified 01/21/24 11:04 [From Humulin R Regular SURE ? U-100 Insuln] INCONCLUSIVE DUST MITES Allergy Mild EYES Uncoded 01/21/24 11:04 WATER, NOSE WATER Home Meds Home Medications Medication Instructions Recorded Confirmed cholecalciferol (vitamin D3) 50 2,000 units PO QDD 01/05/19 01/21/24 mcg (2,000 unit) capsule aspirin 81 mg tablet,delayed 81 mg PO QAM 09/23/20 01/21/24 release (Adult Low Dose Aspirin) acetaminophen 500 mg tablet 1,000 mg PO UD PRN Pain 02/09/21 01/21/24 (Tylenol Extra Strength) Medical Marijuana Card 1 dose UD PRN Back Pain 09/05/21 01/21/24 loratadine 10 mg tablet 10 mg PO DAILY 02/14/22 01/21/24 insulin glargine 100 unit/mL (3 60 unit subcut HS 01/21/24 01/21/24 mL) subcutaneous pen (Lantus Solostar U-100 Insulin) Previous Rx's Medication Instructions Recorded blood-glucose meter (OneTouch #1 ea 11/10/20 Verio Reflect Meter) OneTouch Verio test strips (blood #300 ea 12/28/20 sugar diagnostic) lancets 30 gauge (OneTouch Delica #500 ea 08/17/22 Lancets) flash glucose scanning reader #1 ea 01/14/23 (FreeStyle Crystal 2 Marion) flash glucose sensor (FreeStyle #2 ea 01/14/23 Crystal 2 Sensor kit) cyclobenzaprine 5 mg tablet 2.5 mg (1/2 x 5 mg) PO TID PRN 03/04/23 muscle spasm #30 tabs atorvastatin 80 mg tablet 80 mg PO DAILY #90 tabs 03/06/23 duloxetine 60 mg capsule,delayed 60 mg PO BID #180 caps 03/20/23 release (Cymbalta) hydrochlorothiazide 25 mg tablet 25 mg PO QAM #90 tabs 07/19/23 pen needle, diabetic 32 gauge x #100 ea 10/11/23" (Easy Comfort Pen Meridian) doxazosin 1 mg tablet 1 mg PO QPM #90 tabs 10/22/23 fluticasone propionate 50 2 spray intranasal QAM #16 grams 10/28/23 mcg/actuation nasal spray,suspension (Flonase Allergy Relief) albuterol sulfate 90 mcg/actuation 2 puff inhalation Q4H PRN 11/15/23 aerosol inhaler (Proventil HFA) Shortness Of Breath #6.7 grams clopidogrel 75 mg tablet (Plavix) 75 mg PO QAM #90 tabs 11/19/23 epinephrine 0.3 mg/0.3 mL 0.3 mg (0.3 mL) IM UD PRN 11/19/23 injection, auto-injector Anaphylaxis/BEE STINGS #2 ea nitroglycerin 0.4 mg sublingual 0.4 mg sublingual Q5M PRN chest 11/19/23 tablet pain #25 tabs pantoprazole 40 mg tablet,delayed 40 mg PO DAILY PRN Indigestion #90 11/19/23 release tabs prednisone 20 mg tablet 20 - 40 mg (1 - 2 x 20 mg) PO UD 11/19/23 PRN BEE STINGS/ANAPHYLAXIS #10 tabs levothyroxine 75 mcg tablet 75 mcg PO QAM #90 tabs 12/16/23 insulin lispro 100 unit/mL See Rx Instructions subcut 01/13/24 subcutaneous pen (Admelog NguyenEddiegino USEASDIRECTD #15 mL U-) metoprolol succinate 25 mg 25 mg PO BID #180 tabs 01/16/24 tablet,extended release 24 hr tramadol 50 mg tablet 50 mg PO Q8H PRN pain #60 tabs 01/17/24 empagliflozin 25 mg tablet 25 mg PO DAILY #30 tabs 01/20/24 (Jardiance) Results & Data (ED) Vital Signs Vital Signs - 24 hr 01/21/24 08:13 01/21/24 09:31 01/21/24 10:17 Temperature 36.4 C L Temperature Source Oral Pulse Rate 114 H 91 H Pulse Rate [Apical] 86 Respiratory Rate 20 18 Respiratory Effort / Characteristics Non-Labored Spontaneous Respiratory Depth Normal Blood Pressure 167/97 H Blood Pressure [Left Arm] 135/77 Blood Pressure Mean 120 Blood Pressure Mean [Left Arm] 96 Pulse Oximetry 96 97 Oxygen Delivery Method Room Air Sepsis Recent Fever Within 48 Hours No Sepsis New/Unexplained Change in Mental Status N/A Sepsis Action Taken by Nursing No Action Required 01/21/24 11:00 01/21/24 13:30 01/21/24 14:19 Temperature Temperature Source Pulse Rate 79 Pulse Rate [Apical] 94 H 97 H Respiratory Rate 16 16 Respiratory Effort / Characteristics Non-Labored Spontaneous Respiratory Depth Normal Blood Pressure Blood Pressure [Left Arm] 146/84 H 163/92 H Blood Pressure Mean Blood Pressure Mean [Left Arm] 104 115 Pulse Oximetry 97 94 Oxygen Delivery Method Room Air Room Air Sepsis Recent Fever Within 48 Hours Sepsis New/Unexplained Change in Mental Status Sepsis Action Taken by Nursing Laboratory Data 01/21/24 08:24 01/21/24 08:24 Lab Results 01/21/24 01/21/24 01/21/24 Range/Units 08:20 08:24 09:27 WBC 15.46 H (4.8-10.8) K/ul RBC 6.40 H (4.70-6.10) M/uL Hgb 19.0 H (14.0-18.0) g/dl Hct 55.8 H (42.0-52.0) % MCV 87.2 (80.0-100.0) fL MCH 29.7 (25.0-34.0) pg MCHC 34.1 (32.0-36.0) g/dL RDW Std Deviation 40.5 (36.4-46.3) fL RDW Coeff of Sasha 12.7 (11.5-14.5) % Plt Count 236 (130-400) K/uL MPV 10.1 (9.4-12.4) fL Immature Gran % (Auto) 0.5 % Neut % (Auto) 76.5 % Lymph % (Auto) 10.7 % Leon % (Auto) 11.6 % Eos % (Auto) 0.3 % Baso % (Auto) 0.4 % Neut # (Auto) 11.84 H (1.40-6.50) K/uL Lymph # (Auto) 1.66 (1.20-3.40) K/uL Leon # (Auto) 1.79 H (0.11-0.59) K/uL Eos # (Auto) 0.04 (0.00-0.50) K/uL Baso # (Auto) 0.06 (0.00-0.20) K/uL Immature Gran # (Auto) 0.07 (0.01-0.20) K/uL PT Cancelled INR Cancelled APTT Cancelled PTT Ratio Cancelled Sodium 132 L (136-145) mmol/L Potassium 3.2 L (3.5-5.1) mmol/L Chloride 95 L (98-107) mmol/L Carbon Dioxide 24 (21-32) mmol/L Anion Gap 13 H (3-11) BUN 23 (6-23) mg/dl Creatinine 1.04 (0.6-1.4) mg/dl Est Cr Clr Drug Dosing 76.8 ml/min Est GFR ( Amer) 84.5 ml/min Est GFR (Non-Af Amer) 72.9 ml/min BUN/Creatinine Ratio 22.1 H (10-20) Glucose 216 H (70-99(Fasting)) mg/dl POC Glucose 205 H (70-99) mg/dl Calcium 9.0 (8.6-10.3) mg/dl Magnesium 1.7 (1.7-2.4) mg/dl Total Bilirubin 1.3 H (0.2-1.0) mg/dl AST 20 (13-39) U/L ALT 19 (7-52) U/L Alkaline Phosphatase 86 (34-104) U/L Troponin I High Sens 15.8 (0-20) pg/ml Total Protein 7.7 (6.0-8.3) gm/dl Albumin 4.3 (3.4-5.0) gm/dl Globulin 3.4 (2.5-4.0) gm/dl Albumin/Globulin Ratio 1.3 (0.9-2) Stl C. cayetanensis PCR (NotDetected) Stool Rotavirus A PCR (NotDetected) Stl Adenov F 40/41 PCR (NotDetected) Stool Astrovirus (PCR) (NotDetected) Stool Campylobacter PCR (NotDetected) Stool Cryptosporidium PCR (NotDetected) Stl E.coli Shiga Tox PCR (NotDetected) Stl Enterotoxigenic E PCR (NotDetected) Stool EPEC (PCR) (NotDetected) Stool EAEC (PCR) (NotDetected) Stl E. histolytica PCR (NotDetected) Stool Giardia Lamblia PCR (NotDetected) Stool Salmonella PCR (NotDetected) Stool Sapovirus (PCR) (NotDetected) Stl P. shigelloides PCR (NotDetected) Stl Shigella/EIEC PCR (NotDetected) St Y.enterocolitica PCR (NotDetected) Stool Vibrio (PCR) (NotDetected) Stl Vibrio cholerae PCR (NotDetected) Stl Norovirus GI/GII PCR (NotDetected) Adenovirus (PCR) Not Detected (NotDetected) B. pertussis DNA (PCR) Not Detected (NotDetected) B.parapertussis DNA PCR Not Detected (NotDetected) C. pneumoniae DNA (PCR) Not Detected (NotDetected) Coronavirus OC43 (PCR) Not Detected (NotDetected) Coronavirus HKU1 (PCR) Not Detected (NotDetected) Coronavirus 229E (PCR) Not Detected (NotDetected) SARS-CoV-2 (PCR) Not Detected (NotDetected) Coronavirus NL63 (PCR) Not Detected (NotDetected) Human Metapneumovir PCR Not Detected (NotDetected) Influenza Type A (PCR) Not Detected (NotDetected) Influenza Type B (PCR) Not Detected (NotDetected) M. pneumoniae (PCR) Not Detected (NotDetected) Parainfluenza 1 (PCR) Not Detected (NotDetected) Parainfluenza 2 (PCR) Not Detected (NotDetected) Parainfluenza 3 (PCR) Not Detected (NotDetected) Parainfluenza 4 (PCR) Not Detected (NotDetected) RSV (PCR) Not Detected (NotDetected) Entero/Rhino (PCR) Not Detected (NotDetected) 01/21/24 01/21/24 01/21/24 Range/Units 10:18 10:38 Unknown WBC (4.8-10.8) K/ul RBC (4.70-6.10) M/uL Hgb (14.0-18.0) g/dl Hct (42.0-52.0) % MCV (80.0-100.0) fL MCH (25.0-34.0) pg MCHC (32.0-36.0) g/dL RDW Std Deviation (36.4-46.3) fL RDW Coeff of Sasha (11.5-14.5) % Plt Count (130-400) K/uL MPV (9.4-12.4) fL Immature Gran % (Auto) % Neut % (Auto) % Lymph % (Auto) % Leon % (Auto) % Eos % (Auto) % Baso % (Auto) % Neut # (Auto) (1.40-6.50) K/uL Lymph # (Auto) (1.20-3.40) K/uL Leon # (Auto) (0.11-0.59) K/uL Eos # (Auto) (0.00-0.50) K/uL Baso # (Auto) (0.00-0.20) K/uL Immature Gran # (Auto) (0.01-0.20) K/uL PT 11.3 INR 1.0 APTT 29 PTT Ratio 1.1 Sodium (136-145) mmol/L Potassium (3.5-5.1) mmol/L Chloride (98-107) mmol/L Carbon Dioxide (21-32) mmol/L Anion Gap (3-11) BUN (6-23) mg/dl Creatinine (0.6-1.4) mg/dl Est Cr Clr Drug Dosing ml/min Est GFR ( Amer) ml/min Est GFR (Non-Af Amer) ml/min BUN/Creatinine Ratio (10-20) Glucose (70-99(Fasting)) mg/dl POC Glucose (70-99) mg/dl Calcium (8.6-10.3) mg/dl Magnesium (1.7-2.4) mg/dl Total Bilirubin (0.2-1.0) mg/dl AST (13-39) U/L ALT (7-52) U/L Alkaline Phosphatase (34-104) U/L Troponin I High Sens 16.0 (0-20) pg/ml Total Protein (6.0-8.3) gm/dl Albumin (3.4-5.0) gm/dl Globulin (2.5-4.0) gm/dl Albumin/Globulin Ratio (0.9-2) Stl C. cayetanensis PCR Not Detected (NotDetected) Stool Rotavirus A PCR Not Detected (NotDetected) Stl Adenov F 40/41 PCR Not Detected (NotDetected) Stool Astrovirus (PCR) Not Detected (NotDetected) Stool Campylobacter PCR DETECTED A* (NotDetected) Stool Cryptosporidium PCR Not Detected (NotDetected) Stl E.coli Shiga Tox PCR Not Detected (NotDetected) Stl Enterotoxigenic E PCR Not Detected (NotDetected) Stool EPEC (PCR) Not Detected (NotDetected) Stool EAEC (PCR) Not Detected (NotDetected) Stl E. histolytica PCR Not Detected (NotDetected) Stool Giardia Lamblia PCR Not Detected (NotDetected) Stool Salmonella PCR Not Detected (NotDetected) Stool Sapovirus (PCR) Not Detected (NotDetected) Stl P. shigelloides PCR Not Detected (NotDetected) Stl Shigella/EIEC PCR Not Detected (NotDetected) St Y.enterocolitica PCR Not Detected (NotDetected) Stool Vibrio (PCR) Not Detected (NotDetected) Stl Vibrio cholerae PCR Not Detected (NotDetected) Stl Norovirus GI/GII PCR Not Detected (NotDetected) Adenovirus (PCR) (NotDetected) B. pertussis DNA (PCR) (NotDetected) B.parapertussis DNA PCR (NotDetected) C. pneumoniae DNA (PCR) (NotDetected) Coronavirus OC43 (PCR) (NotDetected) Coronavirus HKU1 (PCR) (NotDetected) Coronavirus 229E (PCR) (NotDetected) SARS-CoV-2 (PCR) (NotDetected) Coronavirus NL63 (PCR) (NotDetected) Human Metapneumovir PCR (NotDetected) Influenza Type A (PCR) (NotDetected) Influenza Type B (PCR) (NotDetected) M. pneumoniae (PCR) (NotDetected) Parainfluenza 1 (PCR) (NotDetected) Parainfluenza 2 (PCR) (NotDetected) Parainfluenza 3 (PCR) (NotDetected) Parainfluenza 4 (PCR) (NotDetected) RSV (PCR) (NotDetected) Entero/Rhino (PCR) (NotDetected) Administered Medications Discontinued Medications Azithromycin (Azithromycin 250 Mg Tab) 500 mg PO NOW ONE Stop: 01/21/24 12:44 Last Admin: 01/21/24 12:47 Dose: 500 mg Documented By: ERLINDA Sodium Chloride (Nss) 2,000 mls @ 999 mls/hr IV .Q2H1M ONE Stop: 01/21/24 10:30 Last Infusion: 01/21/24 11:04 Dose: Infused Documented By: Admin: 01/21/24 08:33 Dose: 999 mls/hr Documented By: ERLINDA Potassium Chloride (K Antonio / Wtr) 10 meq in 100 mls @ 100 mls/hr IV Q1H COREEN Stop: 01/21/24 11:44 Last Infusion: 01/21/24 12:15 Dose: Infused Documented By: Admin: 01/21/24 11:08 Dose: 100 mls/hr Documented By: Infusion: 01/21/24 11:04 Dose: Infused Documented By: Admin: 01/21/24 09:53 Dose: 100 mls/hr Documented By: ERLINDA Acetaminophen (Ofirmev) 1,000 mg in 100 mls @ 400 mls/hr IV NOW STA Stop: 01/21/24 12:51 Last Infusion: 01/21/24 12:55 Dose: Infused Documented By: Admin: 01/21/24 12:40 Dose: 400 mls/hr Documented By: ERLINDA Ioversol (Optiray 320 100ml) 94 ml IV ONCE ONE Stop: 01/21/24 09:48 Last Admin: 01/21/24 09:48 Dose: 94 ml Documented By: WADE Ondansetron HCl (Ondansetron Inj 2 Mg/Ml 2 Ml Vial) 4 mg IV NOW STA Stop: 01/21/24 08:31 Last Admin: 01/21/24 08:33 Dose: 4 mg Documented By: ERLINDA Imaging Data Radiologist's Impression: Chest X-Ray 01/21/24 08:41 XR chest 1V portable CLINICAL HISTORY: chest pain; vomiting TECHNIQUE: Single frontal radiograph of the chest was obtained. Comparison: Comparison is made to chest radiograph 07/26/2020 FINDINGS: Median sternotomy wires are unchanged. Calcified aortic knob is seen. The lungs are clear. No evidence of pleural effusion or pneumothorax. IMPRESSION: No acute chest disease. ACT 112: Negative or not required by law. Electronically signed by: Patrick Wharton M.D. 01/21/2024 9:09 AM Abdomen/Pelvis CT 01/21/24 09:32 CT abd pelvis IV con only CLINICAL HISTORY: vomiting; diarrhea vomiting; diarrhea TECHNIQUE: Helical axial images of the abdomen and pelvis were obtained and displayed. Automated dose lowering techniques and/or adjustment according to patient size were utilized for this exam. This exam was performed with intravenous contrast. CT DOSE: 1382.13 mGy.cm COMPARISON: Comparison is made to CT abdomen pelvis 07/18/2016 FINDINGS: Lower chest: No acute abnormality. Liver: Unremarkable. No focal lesions are seen. Gallbladder and biliary tree: Patient is status post cholecystectomy. No intra- or extrahepatic biliary ductal dilation. Pancreas: Unremarkable, no focal lesions. Spleen: Unremarkable. Adrenals: Unremarkable. Kidneys and ureters: Renal cysts are seen. Bladder: Unremarkable. Reproductive organs: Unremarkable. Bowel: Unremarkable. Lymph nodes Retroperitoneal: Subcentimeter lymph nodes are noted. Pelvic: Unremarkable. Mesenteric: Unremarkable. Peritoneum: Normal. Vessels: Atherosclerotic calcifications are seen. Abdominal wall: A fat-containing umbilical hernia is seen. Bones: Degenerative changes in the visualized spine. IMPRESSION: No acute abnormality is explained vomiting and diarrhea, in particular no evidence of bowel obstruction. ACT 112: Negative or not required by law. Electronically signed by: Patrick Wharton M.D. 01/21/2024 10:25 AM Discharge Plan Visit Data Chief Complaint: Illness Stated Complaint: vomiting, diarrhea, high bp, chest pain , dehydrat ED Provider: Lilli Baltazar Discharge Problem: Chest pain, Campylobacter diarrhea, Nausea, vomiting, and diarrhea, Acute hypokalemia Forms Stand Alone Forms: [facility] Prescriptions Prescriptions: No Action cholecalciferol (vitamin D3) 2,000 unit capsule 2,000 units PO QDD (DME) OneTouch Verio test strips Strip See Rx Instructions .ROUTE .MEDSUPPLY Qty: 300 3RF Rx Instructions: Test blood sugar 3 times daily E11.9 (DME) lancets [OneTouch Delica Lancets] 30 gauge misc See Rx Instructions .ROUTE .MEDSUPPLY Qty: 500 3RF Rx Instructions: Test blood sugar five times daily (DME) FreeStyle Crystal 2 Marion Misc See Rx Instructions .Route Qty: 1 0RF Rx Instructions: As directed (DME) FreeStyle Crystal 2 Sensor Kit See Rx Instructions .Route Qty: 2 11RF Rx Instructions: As directed cyclobenzaprine 5 mg tablet 2.5 mg PO TID PRN (Reason: muscle spasm) Qty: 30 1RF Patient Comments: HAVEN'T TAKEN IN AWHILE "MAKES ME FUZZY OR SOMETHING I DON'T LIKE THE WAY IT MAKES ME FEEL" atorvastatin 80 mg tablet 80 mg PO DAILY Qty: 90 3RF duloxetine [Cymbalta] 60 mg capsule,delayed release(DR/EC) 60 mg PO BID Qty: 180 3RF hydrochlorothiazide 25 mg tablet 25 mg PO QAM Qty: 90 3RF (DME) pen needle, diabetic [Easy Comfort Pen Meridian] 32 gauge x 5/32" needle See Rx Instructions .ROUTE .MEDSUPPLY Qty: 100 5RF Rx Instructions: Use to inject Basaglar once daily and Novolog PRN doxazosin 1 mg tablet 1 mg PO QPM Qty: 90 1RF fluticasone propionate [Flonase Allergy Relief] 50 mcg/actuation spray,suspension 2 spray INTRANASAL QAM Qty: 16 5RF albuterol sulfate [Proventil HFA] 90 mcg/actuation HFA aerosol inhaler 2 puff inhalation Q4H PRN (Reason: Shortness Of Breath) Qty: 6.7 2RF levothyroxine 75 mcg tablet 75 mcg PO QAM Qty: 90 1RF insulin lispro [Admelog SoloStar U-100 Insulin] 100 unit/mL insulin pen See Rx Instructions subcut USEASDIRECTD Qty: 15 2RF Rx Instructions: Use SQ as directed prior to meal per scale. Up to 50units per day; subcutaneously use as directed; metoprolol succinate 25 mg tablet extended release 24 hr 25 mg PO BID Qty: 180 1RF tramadol 50 mg tablet 50 mg PO Q8H PRN (Reason: pain) Qty: 60 0RF Jardiance 25 mg tablet 25 mg PO DAILY Qty: 30 5RF aspirin [Adult Low Dose Aspirin] 81 mg tablet,delayed release (DR/EC) 81 mg PO QAM (DME) blood-glucose meter [Slated Verio Reflect Meter] [facility] See Rx Instructions .ROUTE .MEDSUPPLY Qty: 1 0RF Rx Instructions: Test blood sugar five times daily loratadine 10 mg tablet 10 mg PO DAILY clopidogrel [Plavix] 75 mg tablet 75 mg PO QAM Qty: 90 3RF pantoprazole 40 mg tablet,delayed release (DR/EC) 40 mg PO DAILY PRN (Reason: Indigestion) Qty: 90 1RF Patient Comments: RARELY prednisone 20 mg tablet 20 - 40 mg PO UD PRN (Reason: BEE STINGS/ANAPHYLAXIS) Qty: 10 0RF nitroglycerin 0.4 mg tablet, sublingual 0.4 mg SL Q5M PRN (Reason: chest pain) Qty: 25 4RF Patient Comments: NOT USED SINCE MY HEART SURGERY Rx Instructions: up to 3 doses. If no resolution of Chest pain after 5 min, call 911. epinephrine 0.3 mg/0.3 mL auto-injector 0.3 mg IM UD PRN (Reason: Anaphylaxis/BEE STINGS) Qty: 2 3RF acetaminophen [Tylenol Extra Strength] 500 mg Tablet 1,000 mg PO UD PRN (Reason: Pain) Medical Marijuana Card 1 dose UD PRN (Reason: Back Pain) insulin glargine [Lantus Solostar U-100 Insulin] 100 unit/mL (3 mL) insulin pen 60 unit subcut HS Referrals Referrals: Thalia Joseph DO [Primary Care Provider] -
[2024-01-21 08:50] LABS: Basophils # (auto) 0.06 K/uL (0.00-0.20); Basophils % (auto) 0.4 %; Eosinophils # (auto) 0.04 K/uL (0.00-0.50); Eosinophils % (auto) 0.3 %; Hematocrit (blood only) 55.8 % (42.0-52.0); Immature Granulocytes # (auto) 0.07 K/uL (0.01-0.20); Immature Granulocytes % (auto) 0.5 %; Lymphocytes # (auto) 1.66 K/uL (1.20-3.40); Lymphocytes % (auto) 10.7 %; Mean Corpuscular Hemoglobin 29.7 pg (25.0-34.0); Mean Corpuscular Hgb Conc 34.1 g/dL (32.0-36.0); Mean Corpuscular Volume 87.2 fL (80.0-100.0); Mean Platelet Volume 10.1 fL (9.4-12.4); Monocytes # (auto) 1.79 K/uL (0.11-0.59); Monocytes % (auto) 11.6 %; Neutrophils # (auto) 11.84 K/uL (1.40-6.50); Neutrophils % (auto) 76.5 %; Platelet Count 236 K/uL (130-400); RDW Coefficient of Variation 12.7 % (11.5-14.5); RDW Standard Deviation 40.5 fL (36.4-46.3); White Blood Count 15.46 K/ul (4.8-10.8)
[2024-01-21 09:01] LABS: Albumin Globulin Ratio 1.3 (0.9-2); Albumin Level 4.3 gm/dl (3.4-5.0); BUN Creatinine Ratio 22.1 (10-20); Bilirubin,Total 1.3 mg/dl (0.2-1.0); Creatinine Clr Calc Pharmacy 76.8 ml/min; Est GFR (African American) 84.5 ml/min; Est GFR (Non-African American) 72.9 ml/min; Globulin 3.4 gm/dl (2.5-4.0); Magnesium 1.7 mg/dl (1.7-2.4); Potassium 3.2 mmol/L (3.5-5.1); Total Protein 7.7 gm/dl (6.0-8.3)
[2024-01-21 09:05] LABS: Troponin I High Sensitivity 15.8 pg/ml (0-20)
--- NOTE | 2024-01-21 09:10 | XRay Report ---
XR chest 1V portable CLINICAL HISTORY: chest pain; vomiting TECHNIQUE: Single frontal radiograph of the chest was obtained. Comparison: Comparison is made to chest radiograph 07/26/2020 FINDINGS: Median sternotomy wires are unchanged. Calcified aortic knob is seen. The lungs are clear. No evidenc e of pleural effusion or pneumothorax. IMPRESSION: No acute chest disease. ACT 112: Negative or not required by law. Electronically signed by: Patrick Wharton M.D. 01/21/2024 9:09 AM
[2024-01-21] MEDS: OPTIRAY 320 100ml IV ONE (09:48)
[2024-01-21] MEDS: POTASSIUM CHLORIDE / WTR 10 MEQ/100 ML PLCT IV SCH (09:53)
[2024-01-21 09:58] LABS: Partial Thromboplastin Ratio 1.1; Partial Thromboplastin Time 29 Seconds (21-31); Prothrombin Time 11.3 Seconds (9.0-12.0)
[2024-01-21 10:26] LABS: Adenovirus PCR Not Detected (NotDetected); Bordetella parapertussis PCR Not Detected (NotDetected); Bordetella pertussis PCR Not Detected (NotDetected); Chlamydia pneumoniae PCR Not Detected (NotDetected); Coronavirus 229E PCR Not Detected (NotDetected); Coronavirus CoV-2 (COVID19)PCR Not Detected (NotDetected); Coronavirus HKU1 PCR Not Detected (NotDetected); Coronavirus NL63 PCR Not Detected (NotDetected); Coronavirus OC43PCR Not Detected (NotDetected); Human Metapneumovirus PCR Not Detected (NotDetected); Influenza A PCR Not Detected (NotDetected); Influenza B PCR Not Detected (NotDetected); Mycoplasma pneumoniae PCR Not Detected (NotDetected); Parainfluenza Virus 1 PCR Not Detected (NotDetected); Parainfluenza Virus 2 PCR Not Detected (NotDetected); Parainfluenza Virus 3 PCR Not Detected (NotDetected); Parainfluenza Virus 4 PCR Not Detected (NotDetected); Respiratory Syncytial VirusPCR Not Detected (NotDetected); Rhinovirus/Enterovirus PCR Not Detected (NotDetected)
--- NOTE | 2024-01-21 10:27 | CT Scan Report ---
CT abd pelvis IV con only CLINICAL HISTORY: vomiting; diarrhea vomiting; diarrhea TECHNIQUE: Helical axial images of the abdomen and pelvis were obtained and displayed. Automated dose lowering techniques and/or adjustment according to patient size were utilized for this exam. This e xam was performed with intravenous contrast. CT DOSE: 1382.13 mGy.cm COMPARISON: Comparison is made to CT abdomen pelvis 07/18/2016 FINDINGS: Lower chest: No acute abnormality. Liver: Unremarkable. No focal lesions are seen. Gallbladder and biliary tree: Patient is status post cholecystectomy. No intra- or extrahepatic bilia ry ductal dilation. Pancreas: Unremarkable, no focal lesions. Spleen: Unremarkable. Adrenals: Unremarkable. Kidneys and ureters: Renal cysts are seen. Bladder: Unremarkable. Reproductive organs: Unremarkable. Bowel: Unremarkable. Lymph nodes Retroperitoneal: Subcentimeter lymph nodes are noted. Pelvic: Unremarkable. Mesenteric: Unremarkable. Peritoneum: Normal. Vessels: Atherosclerotic calcifications are seen. Abdominal wall: A fat-containing umbilical hernia is seen. Bones: Degenerative changes in the visualized spine. IMPRESSION: No acute abnormality is explained vomiting and diarrhea, in particular no evidence of bowel obstructi on. ACT 112: Negative or not required by law. Electronically signed by: Patrick Wharton M.D. 01/21/2024 10:25 AM
[2024-01-21 11:57] LABS: Adenovirus F 40/41 PCR Not Detected (NotDetected); Astrovirus PCR Not Detected (NotDetected); Cryptosporidium PCR Not Detected (NotDetected); Cyclospora cayetanensis PCR Not Detected (NotDetected); Entamoeba histolytica PCR Not Detected (NotDetected); Enteroaggregative E.coli(EAEC) Not Detected (NotDetected); Enteropathogenic E.coli (EPEC) Not Detected (NotDetected); Enterotoxigenic E.coli (ETEC) Not Detected (NotDetected); Giardia lamblia PCR Not Detected (NotDetected); Norovirus GI/GII PCR Not Detected (NotDetected); Plesiomonas shigelloides PCR Not Detected (NotDetected); Rotavirus A PCR Not Detected (NotDetected); Salmonella PCR Not Detected (NotDetected); Sapovirus PCR Not Detected (NotDetected); Shiga-like Toxin E.coli (STEC) Not Detected (NotDetected); Shigella/Enteroinvasive E.coli Not Detected (NotDetected); Vibrio cholerae PCR Not Detected (NotDetected); Vibrio species PCR Not Detected (NotDetected); Yersinia enterocolitica PCR Not Detected (NotDetected)
[2024-01-21 12:03] LABS: Campylobacter PCR DETECTED (NotDetected)
[2024-01-21] MEDS: ACETAMINOPHEN 1,000 MG/100 ML VIAL IV STA (12:40)
[2024-01-21] MEDS: AZITHROMYCIN 250 MG TAB PO ONE (12:47)
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
[2024-01-21 15:46] LABS: Phosphorus 3.4 mg/dl (2.5-4.9)
[2024-01-21] MEDS: LACTATED RINGER'S 1,000 ML IV SCH (15:48)
[2024-01-21] MEDS: MAGNESIUM SULFATE / D5W 1 GM/100 ML BAG IV ONE (15:48)
[2024-01-21] MEDS: POTASSIUM CHLORIDE / WTR 10 MEQ/100 ML PLCT IV ONE (15:49)
[2024-01-21] MEDS ORDERED: ALBUTEROL HFA 8 GM INHALER INH PRN (16:41)
[2024-01-21] MEDS ORDERED: GLUCAGON FOR INJ 1 MG VIAL SQ PRN (16:41)
[2024-01-21] MEDS ORDERED: ACETAMINOPHEN 325 MG TAB PO PRN (16:41)
[2024-01-21] MEDS ORDERED: CYCLOBENZAPRINE HCL 5 MG TAB PO PRN (16:41)
[2024-01-21] MEDS ORDERED: DEXTROSE 50% 50 ML SYRINGE IV PRN (16:41)
[2024-01-21] MEDS ORDERED: GLUCOSE 10 TAB/TUBE PO PRN (16:41)
[2024-01-21] MEDS ORDERED: PANTOprazole 40 MG TAB PO PRN (16:41)
[2024-01-21] MEDS ORDERED: CARBOHYDRATES FOR HYPOGLYCEMIA PO PRN (16:41)
[2024-01-21] MEDS ORDERED: GLUCOSE 40% GEL 15 GM TUBE PO PRN (16:41)
[2024-01-21] MEDS: INSULIN ASPART PER UNIT CHARGE SC SCH (19:18)
[2024-01-21] MEDS: DOXAZOSIN MESYLATE 1 MG TAB PO SCH (20:55)
[2024-01-21] MEDS: METOPROLOL SUCC 25MG EXT REL TAB PO SCH (20:55)
[2024-01-21] MEDS: DULoxetine HCL 60 MG CAP PO SCH (20:55)
[2024-01-21] MEDS: LANTUS PER UNIT CHARGE SQ SCH (20:55)
[2024-01-22] MEDS: ONDANSETRON INJ 2 MG/ML 2 ML VIAL IV PRN (03:19)
[2024-01-22] MEDS: traMADol HCL 50 MG TABLET PO PRN (05:18)
[2024-01-22] MEDS: LEVOTHYROXINE SODIUM 75 MCG TABLET PO SCH (05:19)
[2024-01-22 05:59] LABS: Appearance Urine Clear (Clear); Bilirubin Urine Negative (Negative); Blood Urine Negative (Negative); Color Urine Yellow; Glucose Urine UA Trace (Negative); Ketones Urine Trace (Negative); Leukocyte Esterase Urine Negative (Negative); Nitrite Urine Negative (Negative); Protein Urine Negative (Negative); Specific Gravity Urine 1.011 (1.000-1.030); Urobilinogen Urine Negative (Negative)
[2024-01-22 06:47] LABS: Basophils # (auto) 0.04 K/uL (0.00-0.20); Basophils % (auto) 0.4 %; Eosinophils # (auto) 0.15 K/uL (0.00-0.50); Eosinophils % (auto) 1.6 %; Hematocrit (blood only) 47.6 % (42.0-52.0); Hemoglobin 16.5 g/dl (14.0-18.0); Immature Granulocytes # (auto) 0.04 K/uL (0.01-0.20); Immature Granulocytes % (auto) 0.4 %; Lymphocytes # (auto) 1.45 K/uL (1.20-3.40); Lymphocytes % (auto) 15.1 %; Mean Corpuscular Hemoglobin 30.5 pg (25.0-34.0); Mean Corpuscular Hgb Conc 34.7 g/dL (32.0-36.0); Mean Platelet Volume 10.4 fL (9.4-12.4); Monocytes # (auto) 1.23 K/uL (0.11-0.59); Monocytes % (auto) 12.8 %; Neutrophils # (auto) 6.72 K/uL (1.40-6.50); Neutrophils % (auto) 69.7 %; Platelet Count 190 K/uL (130-400); RDW Coefficient of Variation 12.8 % (11.5-14.5); RDW Standard Deviation 41.1 fL (36.4-46.3); Red Blood Count 5.41 M/uL (4.70-6.10); White Blood Count 9.63 K/ul (4.8-10.8)
--- NOTE | 2024-01-22 07:13 | Hospitalist Progress Note ---
Date of Service January 22, 2024 Assessment & Plan (1) Campylobacter gastrointestinal tract infection: Plan: N/V/D that began on Wednesday 01/17 Leukocytosis at 15.46 improved to 9 PCR Stool (+) for campylobacter on arrival Supportive care, Standard precautions Azithromycin 500mg p.o. x 1 given in the ED; QTc okay at 432 Admission team Discussed risks/benefits with patient's prior allergy to erythromycin (patient reports rash and mild hives that occurred on the third of taking) He is amenable to trying 3 days course of azithromycin at this time Will continue with azithromycin 500 mg p.o. daily Hypokalemia from diarrhea improving will augment by oral potassium (2) Insulin dependent type 2 diabetes mellitus: Plan: Last A1c 7.1% on 11/19/23 Hold Jardiance Patient normally takes long acting insulin 60u HS Will dose reduce to 15u BID in the setting of poor oral intake SSI with target goal 110-150, CF 20, carb ratio 10 BSG ACHS (3) Tachycardia: Plan: Patient was tachycardic around 100 bpm in the ED and does endorse chest pain/palpitations However, patient attributes chest pain to dry heaving and vomiting Troponin WNL at 16 , t wave inversion in inf lat leads Suspect secondary to GI illness pt with known CAD, CABG x 2 and stent, preserved EF, continues on aspirin and plavix (4) Hypokalemia: Plan: Mild; K 3.2 on arrival repeat remains at 3.2 augment orally (5) CAD (coronary artery disease): Plan: Continue aspirin and Plavix (6) Lower back pain: Plan: Continue tramadol as needed (2nd line to acetaminophen) Hold cyclobenzaprine Plan Full code Advance diet to type 2 diabetes diet Admission and Anticipated Discharge Date Admission Date: January 21, 2024 Subjective Patient had improvement of diarrheal frequency abdominal pain is improving is tolerating a diet will advance Physical Exam Physical Exam: Patient is awake alert appropriate. Card exam is regular lungs are clear abdomen NABS soft minor uncomfortable feeling to the bilateral lower quadrants to examination Results & Data Results & Data Vital Signs (Past 12 Hours) Vital Signs Temp Pulse Pulse Pulse Resp BP Pulse Ox 01/22/24 03:02 98.6 F 92 H 16 102/60 92 01/21/24 22:00 98.8 F 109 H 18 136/81 94 01/21/24 21:55 101 H 01/21/24 20:05 117 H 01/21/24 19:45 01/21/24 19:45 97.3 F L 93 H 18 161/85 H 96 O2 Del Method 01/22/24 03:02 Room Air 01/21/24 22:00 Room Air 01/21/24 21:55 01/21/24 20:05 01/21/24 19:45 Room Air 01/21/24 19:45 Room Air Laboratory Results Reviewed CBC reviewed chemistry augmented hypokalemia PG Care Time/CCT Total # of Minutes Spent Total Time Spent with Patient: Total time spent is greater than 50% in coordination of care (as documented) at patient's floor/unit and/or counseling patient: Coding Level of Care Code 49052 SUB INP/OBS CARE 2/35MIN Diagnoses Campylobacter gastrointestinal tract infection A04.5 Insulin dependent type 2 diabetes mellitus E11.9; Z79.4 Tachycardia R00.0 Hypokalemia E87.6 CAD (coronary artery disease) I25.10 Lower back pain M54.50
[2024-01-22 07:25] LABS: BUN Creatinine Ratio 17.9 (10-20); Calcium 8.1 mg/dl (8.6-10.3); Creatinine Clr Calc Pharmacy 120.2 ml/min; Est GFR (African American) 113.6 ml/min; Magnesium 1.9 mg/dl (1.7-2.4); Phosphorus 1.6 mg/dl (2.5-4.9); Potassium 3.2 mmol/L (3.5-5.1)
[2024-01-22] MEDS: FLUTICASONE PROPIONATE NA SPR 16 GM BTL SCH (07:47)
[2024-01-22] MEDS: LORATADINE 10 MG TAB PO SCH (07:48)
[2024-01-22] MEDS: CLOPIDOGREL BISULFATE 75 MG TAB PO SCH (07:48)
[2024-01-22] MEDS: ASPIRIN 81 MG ECTAB PO SCH (07:49)
[2024-01-22] MEDS: AZITHROMYCIN 250 MG TAB PO SCH (07:49)
[2024-01-22] MEDS: ATORVASTATIN 40 MG TAB PO SCH (07:49)
[2024-01-22 08:59] LABS: Troponin I High Sensitivity 20.9 pg/ml (0-20)
[2024-01-22] MEDS ORDERED: EMPAGLIFLOZIN 25 MG TAB PO SCH (09:00)
[2024-01-22 15:32] VITALS: RESP 18
[2024-01-22] MEDS: POTASSIUM CHLORIDE CRTAB 20 MEQ TABCR PO STA (16:49)
[2024-01-22] MEDS: POTASSIUM CHLORIDE CRTAB 20 MEQ TABCR PO SCH (21:24)
--- NOTE | 2024-01-23 06:17 | Electrocardiogram Report ---
Test Reason : Blood Pressure : / mmHG Vent. Rate : 103 BPM Atrial Rate : 103 BPM P-R Int : 170 ms QRS Dur : 096 ms QT Int : 330 ms P-R-T Axes : 046 084 151 degrees QTc Int : 432 ms Sinus tachycardia Possible Left atrial enlargement Cannot rule out Inferior infarct , age undetermined Abnormal ECG When compared with ECG of 27-FEB-2023 10:15, Premature atrial complexes are no longer Present Vent. rate has increased BY 42 BPM T wave inversion now evident in Inferior leads T wave inversion now evident in Lateral leads Confirmed by Hemanth Mckenzie ([id number]) on 01/23/2024 6:17:15 AM Referred By: REFERRED SELF Confirmed By:Hemanth Mckenzie
[2024-01-23 07:19] LABS: Basophils # (auto) 0.06 K/uL (0.00-0.20); Basophils % (auto) 0.7 %; Eosinophils # (auto) 0.27 K/uL (0.00-0.50); Hematocrit (blood only) 47.6 % (42.0-52.0); Hemoglobin 16.1 g/dl (14.0-18.0); Immature Granulocytes # (auto) 0.04 K/uL (0.01-0.20); Immature Granulocytes % (auto) 0.4 %; Lymphocytes # (auto) 2.05 K/uL (1.20-3.40); Mean Corpuscular Hgb Conc 33.8 g/dL (32.0-36.0); Mean Corpuscular Volume 88.8 fL (80.0-100.0); Mean Platelet Volume 10.3 fL (9.4-12.4); Monocytes # (auto) 1.24 K/uL (0.11-0.59); Monocytes % (auto) 13.9 %; Neutrophils # (auto) 5.26 K/uL (1.40-6.50); Platelet Count 199 K/uL (130-400); RDW Coefficient of Variation 12.6 % (11.5-14.5); Red Blood Count 5.36 M/uL (4.70-6.10); White Blood Count 8.92 K/ul (4.8-10.8)
[2024-01-23 07:50] LABS: BUN Creatinine Ratio 16.9 (10-20); Calcium 8.2 mg/dl (8.6-10.3); Creatinine Clr Calc Pharmacy 123.6 ml/min; Est GFR (African American) 115.1 ml/min; Est GFR (Non-African American) 99.3 ml/min; Potassium 3.4 mmol/L (3.5-5.1)
[2024-01-23 07:52] VITALS: TEMP 97.9; O2SAT 90
[2024-01-23 08:52] VITALS: BP 130/77; PULSE 93
--- NOTE | 2024-01-23 15:46 | Discharge Summary ---
Discharge Summary Date of Service January 23, 2024 Principal Dx & Hospital Course #1 = Principal Diagnosis (1) Campylobacter gastrointestinal tract infection: N/V/D that began on Wednesday 01/17 PCR Stool (+) for campylobacter on arrival Azithromycin 500mg p.o. for 3 days improved his diarrhea and improved his appetite, was able to eat and drink well prior to dc Will continue with azithromycin 500 mg p.o. daily for one additional day after discharge Hypokalemia from diarrhea improving (2) Insulin dependent type 2 diabetes mellitus: Last A1c 7.1% on 11/19/23 resume Jardiance Patient normally takes long acting insulin 60u HS (3) Tachycardia: Patient was tachycardic around 100 bpm in the ED and does endorse chest pain/palpitations However, patient attributes chest pain to dry heaving and vomiting Troponin WNL at 16 pt with known CAD, CABG x 2 and stent, preserved EF, continues on aspirin and plavix (4) CAD (coronary artery disease): Continue aspirin and Plavix (5) Lower back pain: Continue tramadol as needed (2nd line to acetaminophen) Hold cyclobenzaprine Plan Full code Notes For Next Care Provider please consider follow up outpt electrolytes Admission HPI Per Admitting Provider Maik is a 68-year-old male with PMH of diabetes, IBS, dyslipidemia, GERD, CAD, asthma, HTN, hypothyroidism, and TBI. He presented for N/V/D that began on Thursday 01/18. Patient is hypertensive 163/92 at time of admission. Patient reports that he has associated headache, and believes he is having chest pain and chest palpitations secondary to the dry heaves and vomiting. Patient has been tolerating fluids and p.o. meds, but not solids. Patient did not take his regular morning medications; last took his p.o. medications on Saturday, but they came right back up. No recent change in medications. He did not take his long- acting insulin (Lantus) last night. No sick contacts. No recent hiking trips or camping trips. Patient is unsure if he has blood in his diarrhea; he characterizes it as a dark watery diarrhea; he has had it frequently in the ED 4-5 times since arrival. No mucus. No bright red blood. He denies blood in his vomit. Additionally, he endorses left lower quadrant abdominal cramping that is intermittent, which he describes as similar to "gas". He rates it 4/10 at present, 7/10 at worst. Patient reports that he has severe allergies to penicillin and clindamycin (reaction includes hives and swelling of the throat). He reports he has a milder reaction to azithromycin (rash and some hives on the third day of taking) he reports he is amenable to trying azithromycin after discussing risks/benefits and informing the patient that they are in the same drug class as erythromycin. Patient denies smoking, tobacco use, and recent alcohol use. Patient is hypertensive at 146/71 at time of admission; vitals otherwise stable. ED course: NSS 2000 mL Zofran 4 mg IV K rider 10mEq IV x 2 Acetaminophen 1000 mg IV Azithromycin 500 mg p.o. ROS: Patient endorses chills, clamminess y, PAN, chest/. Pain (which patient attributes to dry heaves and vomiting), chest palpitations, abdominal cramping, N/V, watery diarrhea, burning with urination (which patient attributes to "crystals" in his urine; hx of kidney issue 10y ago but unsure of the cause). Patient denies fever, dizziness/lightheadedness, SOB, hematemesis, or blood in stool. Discharge Exam pt is doing well, eating and drinking Updated Medication List Medication Instructions Recorded Confirmed Type cholecalciferol (vitamin D3) 50 2,000 units PO QDD 01/05/19 01/21/24 History mcg (2,000 unit) capsule aspirin 81 mg tablet,delayed 81 mg PO QAM 09/23/20 01/21/24 History release (Adult Low Dose Aspirin) blood-glucose meter (OneTouch #1 ea 11/10/20 12/24/23 Rx Verio Reflect Meter) OneTouch Verio test strips (blood #300 ea 12/28/20 12/24/23 Rx sugar diagnostic) acetaminophen 500 mg tablet 1,000 mg PO UD PRN Pain 02/09/21 01/21/24 History (Tylenol Extra Strength) Medical Marijuana Card 1 dose UD PRN Back Pain 09/05/21 01/21/24 History loratadine 10 mg tablet 10 mg PO DAILY 02/14/22 01/21/24 History lancets 30 gauge (OneTouch Delica #500 ea 08/17/22 12/24/23 Rx Lancets) flash glucose scanning reader #1 ea 01/14/23 12/24/23 Rx (FreeStyle Crystal 2 [place]) flash glucose sensor (FreeStyle #2 ea 01/14/23 12/24/23 Rx Crystal 2 Sensor kit) cyclobenzaprine 5 mg tablet 2.5 mg (1/2 x 5 mg) PO TID PRN 03/04/23 01/21/24 Rx muscle spasm #30 tabs atorvastatin 80 mg tablet 80 mg PO DAILY #90 tabs 03/06/23 01/21/24 Rx duloxetine 60 mg capsule,delayed 60 mg PO BID #180 caps 03/20/23 01/21/24 Rx release (Cymbalta) hydrochlorothiazide 25 mg tablet 25 mg PO QAM #90 tabs 07/19/23 01/21/24 Rx pen needle, diabetic 32 gauge x #100 ea 10/11/23 12/24/23 Rx 5/32" (Easy Comfort Pen [place]) doxazosin 1 mg tablet 1 mg PO QPM #90 tabs 10/22/23 01/21/24 Rx fluticasone propionate 50 2 spray intranasal QAM #16 grams 10/28/23 01/21/24 Rx mcg/actuation nasal spray,suspension (Flonase Allergy Relief) albuterol sulfate 90 mcg/actuation 2 puff inhalation Q4H PRN 11/15/23 01/21/24 Rx aerosol inhaler (Proventil HFA) Shortness Of Breath #6.7 grams clopidogrel 75 mg tablet (Plavix) 75 mg PO QAM #90 tabs 11/19/23 01/21/24 Rx epinephrine 0.3 mg/0.3 mL 0.3 mg (0.3 mL) IM UD PRN 11/19/23 01/21/24 Rx injection, auto-injector Anaphylaxis/BEE STINGS #2 ea nitroglycerin 0.4 mg sublingual 0.4 mg sublingual Q5M PRN chest 11/19/23 01/21/24 Rx tablet pain #25 tabs pantoprazole 40 mg tablet,delayed 40 mg PO DAILY PRN Indigestion #90 11/19/23 01/21/24 Rx release tabs prednisone 20 mg tablet 20 - 40 mg (1 - 2 x 20 mg) PO UD 11/19/23 01/21/24 Rx PRN BEE STINGS/ANAPHYLAXIS #10 tabs levothyroxine 75 mcg tablet 75 mcg PO QAM #90 tabs 12/16/23 01/21/24 Rx insulin lispro 100 unit/mL See Rx Instructions subcut 01/13/24 01/21/24 Rx subcutaneous pen (Admelog SoloStar USEASDIRECTD #15 mL U-) metoprolol succinate 25 mg 25 mg PO BID #180 tabs 01/16/24 01/21/24 Rx tablet,extended release 24 hr tramadol 50 mg tablet 50 mg PO Q8H PRN pain #60 tabs 01/17/24 01/21/24 Rx empagliflozin 25 mg tablet 25 mg PO DAILY #30 tabs 01/20/24 01/21/24 Rx (Jardiance) insulin glargine 100 unit/mL (3 60 unit subcut HS 01/21/24 01/21/24 History mL) subcutaneous pen (Lantus Solostar U-100 Insulin) azithromycin 250 mg tablet 500 mg (2 x 250 mg) PO QAM #2 tabs 01/23/24 Rx Hospital Stay Data Consultations 01/21/24 14:40 ED Decision to Admit Stat Diagnostic Imagining Performed 01/21/24 09:32 CT Abd and Pelvis [CT abd pelvis IV con only] Urgent Pending Results Patient Have Any Pending Studies at Discharge: No Discharge Instructions Given to Patient (Per Discharging Provider) please keep up with hydration and nutrition, especially hydration with the summer heat one additional day of antibiotics Total Time Total Time Spent Total Time Spent (In Minutes): It required greater than 30 minutes to prepare this patient for discharge. Coding Level of Care Code 30752 INP/OBS DISCH >30 MIN Diagnoses Campylobacter gastrointestinal tract infection A04.5 Insulin dependent type 2 diabetes mellitus E11.9; Z79.4 Tachycardia R00.0 CAD (coronary artery disease) I25.10 Lower back pain M54.50
== END 2024-01-23 10:19 | disposition home or self-care (01) | DRG 373 ==
LOC: ED 08:06 → SUATTDRO 15:36 → EDINP 15:36 → INTOOBSV 15:36 → 2N 16:43

== ENCOUNTER 2025-04-11 22:30 | Inpatient (IN) ==
[2025-04-11] MEDS: HYDROmorphone INJ 0.5 MG/0.5 ML SYR IV STA (22:53)
[2025-04-11] MEDS: ONDANSETRON INJ 2 MG/ML 2 ML VIAL IV STA (22:53)
--- NOTE | 2025-04-11 22:53 | Emergency Department Note ---
Impression & Plan Accidental fall from ladder, Low back pain, Acute pain of left knee admit to the [facility] ED Provider Note NAME: JANE COOPER AGE: 70 SEX: Male INFORMANT: Patient ED PROVIDER(S): Shirley Gutiérrez DO CHIEF COMPLAINT: Fall from ladder PLAN: Disposition: admit to the [facility] MEDICAL DECISION MAKING: This is a 70-year-old male who presents to the emergency department after falling 14-16 feet from a ladder at 11 AM this morning. Patient states that he initially landed on the left foot and left hip. Patient is complaining of severe pain in his left low back, left hip and left knee. He also has pain in both feet. The pain became intolerable and he called EMS. patient has required multiple doses of IV analgesia here in the emergency department to maintain comfort. He went for CT scan of his brain, cervical spine, chest, abdomen and pelvis. He then also had plain x-rays of his left knee and both feet along with his chest. These all revealed no acute signs of traumatic injury except for the left knee x-ray which showed some loose bodies at the the proximal end of the tibia which could represent fracture. Since the patient was so painful there, he went for CT of the knee. They continue to receive IV analgesia to maintain comfort. Vital signs remained stable. CT of the knee showed evidence of findings within the knee which may be chronic as the patient has a history of chronic knee pain and has received injections into that knee for some time. Laboratory studies here reveal moderate leukocytosis with a white count of 16. H&H were stable. Coagulation studies were normal. Troponin was negative. Glucose was 148. 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 Vital Signs: reviewed and unremarkable Additional History obtained from: EMS Differential Diagnosis: Chance fracture, pelvis fracture, distal femur fracture, tibial plateau fracture, talus fractures, femur fracture wind site manager: Normal sinus rhythm at a rate of 78 radiographic studies: Chest x-ray: no pneumothorax or acute signs of trauma. left foot x-ray: no acute fracture Right foot x-ray: no acute fracture Left knee x-ray: loose bodies at the proximal end of the tibia CT scan brain: As per [facility] CT scan of the cervical spine: As per [facility] CT scan of the chest: As per [facility] CT scan of the abdomen/pelvis: As per [facility] CT scan of the lumbar spine: As per [facility] HPI: 70 year old Male arrives for evaluation of Fall from ladder. falling 14-16 feet from a ladder at 11 AM this morning. Patient states that he initially landed on the left foot and left hip. Patient is complaining of severe pain in his left low back, left hip and left knee. He also has pain in both feet. The pain became intolerable and he called EMS. PAST MEDICAL HISTORY: See Below, PAST SURGICAL HISTORY: See Below, SOCIAL HISTORY: See Below, HOME MEDICATIONS: see list ALLERGIES: see list VITALS: See Below PHYSICAL EXAMINATION: Primary Survey Airway: Intact Breathing: Normal, breath sounds equal bilaterally Circulation: Skin warm, distal pulses 2+, capillary refill less than 2 seconds Disability Pupils: Equal and reactive to light, 2mm, brisk GCS: 15, E = 6 V=5 M= 4 Motor Function: Moves all extremities. Sensory: No deficits Secondary Survey GEN: Well developed and well-nourished HEAD: Normal cephalic atraumatic EYES: Pupils round reactive to light, conjunctiva clear, extraocular movements intact, no raccoons eyes ENT: No fluid in external acoustic canals, no hemotympanum, no anders's sign, nares patent, oropharynx clear NECK: No JVD, midline trachea, no cervical spine tenderness, C-collar in place HEART: tachycardic rate and rhythm LUNGS: Clear to auscultation bilaterally. CHEST: Chest wall non-tender, no bruising/deformity ABD: No Orta-Ellis's or Donato's sign, soft, non-tender, no rebound or guarding, PELVIS: Stable to rock BACK: No step offs or deformities, significant tenderness to the lumbar spine and over the left PSIS. EXT: Significant edema noted over the left distal femur and about the left knee. He had absolutely no range of motion to the left knee. Even slight movement gave him significant pain. 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 A complete history and physical was performed. Patient a portable chest x- ray and x-ray of the left knee. He was given a dose of Dilaudid and Zofran for his pain. He went for CT scan of the brain, cervical spine, chest, abdomen/pelvis and lumbar spine. He then will have x-rays of both feet. patient continued to complain of significant pain to the left knee. He was given a dose of IV Toradol and IV Zofran which gave him some relief of his discomfort. X-ray of the left knee was concerning for possible fracture. Patient went back for CT scan of the left knee which showed some probable chronic changes or infectious changes. Again, the patient requested pain medication for his left low back and left knee. He was given another dose of IV Dilaudid. It seems the patient will require admission to the hospital for pain management and possible further workup of the findings in the left knee. I discussed the case with the [facility] Hospitalist and they will evaluate for further inpatient care. 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- last one being 10 yrs ago from fall on ice resulting in cervical fx and skull fx- life flighted [facility] History of colon polyps Lumbar spinal stenosis Osteoarthritis Neuropathy IBS (irritable bowel syndrome) Hypothyroidism Hypertension History of VA (myocardial infarction) FOLLOWS [facility] LAST VISIT 11/08/212018...STENT X1 - [facility] 2019 - CONTINUED TO HAVE PROBLEMS...BLOCKAGE FOUND, DOUBLE BYPASS IN [place] Agustín's thyroiditis GERD (gastroesophageal reflux disease) Distal myopathy Dyslipidemia Cervical disc disease CAD (coronary artery disease) Asthma USES PRN INH SUMMER MONTHS ONLY Vitamin D deficiency Status post double vessel coronary artery bypass Protrusion of cervical intervertebral disc Medical History Lower back pain Campylobacter diarrhea Chest pain Post concussion syndrome Gait disturbance History of fatty infiltration of liver History of colon polyps Nasal fracture History of cervical fracture History of gout History of stomach ulcers TBI (traumatic brain injury) Migraine Surgical History History of colonoscopy S/P CABG x 2 (04/13/20) History of coronary artery stent placement (06/11/19) S/P tonsillectomy and adenoidectomy S/P foot surgery History of cataract surgery H/O repair of rotator cuff History of carpal tunnel release of both wrists History of sinus surgery History of appendectomy History of arthroscopic knee surgery History of cholecystectomy History of cardiac cath Family History Mother Diabetes Kidney disease Aunt Colorectal cancer FH: ovarian cancer Father Liver cancer Hypertension Lung cancer Cancer Brother Pancreatic cancer Denies family history of Prostate cancer Myocardial infarction Breast cancer Social History Smoking Status: Former smoker Tobacco Type: Cigarettes Age Started Using Tobacco: 17; Age Quit Using Tobacco: 41; packs per day: 2; Second Hand Exposure: No; Do You Dip or Chew Tobacco: No; Hx Alcohol Use: Yes Alcohol type: wine Hx Substance Use: Yes Last Used Substance: Unknown Substance Use Type Other:: medical marijuana Preferred Language: Romansh Communication Ability: Effective Visual Impairment: No Limitations Hearing Ability: Normal 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 ) during the past year weight has: remained stable Dental Care, Regularly: Yes Physical Activity Frequency: Daily Seatbelt Use: always Sunscreen Use: Yes Assistive Devices: Cane, Scooter/Electric Scooter and Wheelchair Allergies Allergies Allergy/AdvReac Type Severity Reaction Status Date / Time bee venom protein (honey bee) Allergy Severe ANAPHYLACTI Verified 03/16/25 10:24 C clindamycin Allergy Intermediate hives, Verified 03/16/25 10:24 swellling, short of breath - SEE NOTES BELOW Influenza Virus Vaccines Allergy Intermediate HX 1989' Verified 03/16/25 10:24 HIVES,LOCALIZED SWELLING - SEE NOTES mold Allergy Mild EYES Verified 03/16/25 10:24 WATER, NOSE WATER Penicillins Allergy Mild RASH/TROUBLE Verified 03/16/25 10:24 BREATHING Sulfa (Sulfonamide Allergy Mild RASH/TROUBLE Verified 03/16/25 10:24 Antibiotics) BREATHING insulin regular Allergy Unknown PT NOT Verified 03/16/25 10:24 [From Humulin R Regular SURE ? U-100 Insuln] INCONCLUSIVE DUST MITES Allergy Mild EYES Uncoded 03/16/25 10:24 WATER, NOSE WATER Home Meds Home Medications Medication Instructions Recorded Confirmed cholecalciferol (vitamin D3) 50 2,000 units PO QDD 01/05/19 03/24/25 mcg (2,000 unit) capsule aspirin 81 mg tablet,delayed 81 mg PO QAM 09/23/20 03/24/25 release (Adult Low Dose Aspirin) acetaminophen 500 mg tablet 1,000 mg PO UD PRN Pain 02/09/21 03/24/25 (Tylenol Extra Strength) Medical Marijuana Card 1 dose UD PRN Back Pain 09/05/21 03/24/25 loratadine 10 mg tablet 10 mg PO DAILY 02/14/22 03/24/25 Previous Rx's Medication Instructions Recorded blood-glucose meter (OneTouch #1 ea 11/10/20 Verio Reflect Meter) OneTouch Verio test strips (blood #300 ea 12/28/20 sugar diagnostic) lancets 30 gauge (OneTouch Delica #500 ea 08/17/22 Lancets) flash glucose scanning reader #1 ea 01/14/23 (FreeStyle Crystal 2 Oketo) flash glucose sensor (FreeStyle #2 ea 01/14/23 Crystal 2 Sensor kit) epinephrine 0.3 mg/0.3 mL 0.3 mg (0.3 mL) IM UD PRN 11/19/23 injection, auto-injector Anaphylaxis/BEE STINGS #2 ea nitroglycerin 0.4 mg sublingual 0.4 mg sublingual Q5M PRN chest 11/19/23 tablet pain #25 tabs prednisone 20 mg tablet 20 - 40 mg (1 - 2 x 20 mg) PO UD 11/19/23 PRN BEE STINGS/ANAPHYLAXIS #10 tabs hydrochlorothiazide 25 mg tablet 25 mg PO QAM #90 tabs 06/19/24 insulin lispro 100 unit/mL See Rx Instructions subcut 07/14/24 subcutaneous pen (Admelog SoloStar USEASDIRECTD #15 mL U-) doxazosin 1 mg tablet 1 mg PO QPM #90 tabs 10/14/24 pantoprazole 40 mg tablet,delayed 40 mg PO DAILY PRN Indigestion #90 11/04/24 release tabs fluticasone propionate 50 2 spray intranasal QAM #16 grams 11/25/24 mcg/actuation nasal spray,suspension (Flonase Allergy Relief) clopidogrel 75 mg tablet (Plavix) 75 mg PO QAM #90 tabs 12/04/24 levothyroxine 75 mcg tablet 75 mcg PO QAM #90 tabs 12/14/24 empagliflozin 25 mg tablet 25 mg PO DAILY #90 tabs 01/18/25 (Jardiance) metoprolol succinate 25 mg 25 mg PO BID #180 tabs 01/18/25 tablet,extended release 24 hr atorvastatin 80 mg tablet 80 mg PO DAILY #90 tabs 02/23/25 duloxetine 60 mg capsule,delayed 60 mg PO BID #180 caps 03/01/25 release cyclobenzaprine 5 mg tablet 2.5 mg (1/2 x 5 mg) PO TID PRN 03/15/25 muscle spasm #30 tabs pen needle, diabetic 32 gauge x #100 ea 03/22/25" (Easy Comfort Pen Tolstoy) albuterol sulfate 90 mcg/actuation 2 puff inhalation Q4H PRN 03/24/25 aerosol inhaler Shortness Of Breath #6.7 grams budesonide-formoterol HFA 160 1 inh inhalation BID #10.2 grams 03/24/25 mcg-4.5 mcg/actuation aerosol inhaler (Symbicort) ipratropium 0.5 mg-albuterol 3 mg 3 ml inhalation QID PRN wheezing 03/24/25 (2.5 mg base)/3 mL nebulization #180 mL soln tramadol 50 mg tablet 50 mg PO Q8H PRN pain #60 tabs 04/02/25 insulin glargine 100 unit/mL (3 65 unit (0.65 mL) subcut DAILY #15 04/07/25 mL) subcutaneous pen (Basaglar mL KwikPen U-100 Insulin) Results & Data (ED) Vital Signs Vital Signs - 24 hr 04/11/25 22:32 04/11/25 22:32 04/11/25 22:32 Temperature 37 C 37 C 37 C Temperature Source Oral Oral Pulse Rate 81 81 Pulse Rate [Apical] 81 Respiratory Rate 20 20 20 Respiratory Effort / Characteristics Non-Labored Spontaneous Non-Labored Spontaneous Respiratory Depth Normal Normal Respiratory Pattern Regular Regular Blood Pressure 189/115 H 184/115 H Blood Pressure [Right Arm] 189/115 H Blood Pressure Mean 138 Blood Pressure Mean [Right Arm] 139 Pulse Oximetry 92 92 92 Oxygen Delivery Method Room Air Room Air Room Air Oxygen Flow Rate 0 Sepsis Recent Fever Within 48 Hours No Sepsis New/Unexplained Change in Mental Status N/A Sepsis Action Taken by Nursing No Action Required Oxygen Flow Rate - Titration Pulse Oximetry Post Tiitration 04/11/25 22:32 04/11/25 22:37 04/11/25 22:47 Temperature Temperature Source Pulse Rate 83 Pulse Rate [Apical] Respiratory Rate Respiratory Effort / Characteristics Respiratory Depth Respiratory Pattern Blood Pressure Blood Pressure [Right Arm] Blood Pressure Mean Blood Pressure Mean [Right Arm] Pulse Oximetry 92 95 Oxygen Delivery Method Room Air Nasal Cannula Oxygen Flow Rate 2 Sepsis Recent Fever Within 48 Hours Sepsis New/Unexplained Change in Mental Status Sepsis Action Taken by Nursing Oxygen Flow Rate - Titration 2 Pulse Oximetry Post Tiitration 95 04/11/25 23:09 04/12/25 00:00 04/12/25 01:00 Temperature Temperature Source Pulse Rate Pulse Rate [Apical] 87 82 84 Respiratory Rate 20 24 20 Respiratory Effort / Characteristics Non-Labored Spontaneous Non-Labored Spontaneous Respiratory Depth Normal Normal Respiratory Pattern Regular Regular Blood Pressure Blood Pressure [Right Arm] 161/100 H 165/99 H 163/99 H Blood Pressure Mean Blood Pressure Mean [Right Arm] 120 121 120 Pulse Oximetry 95 96 95 Oxygen Delivery Method Nasal Cannula Nasal Cannula Nasal Cannula Oxygen Flow Rate 2 2 2 Sepsis Recent Fever Within 48 Hours Sepsis New/Unexplained Change in Mental Status Sepsis Action Taken by Nursing Oxygen Flow Rate - Titration Pulse Oximetry Post Tiitration 04/12/25 02:00 04/12/25 02:34 04/12/25 03:00 Temperature Temperature Source Pulse Rate 81 Pulse Rate [Apical] 81 73 Respiratory Rate 22 20 Respiratory Effort / Characteristics Non-Labored Spontaneous Non-Labored Spontaneous Respiratory Depth Normal Normal Respiratory Pattern Regular Regular Blood Pressure Blood Pressure [Right Arm] 167/89 H 164/93 H Blood Pressure Mean Blood Pressure Mean [Right Arm] 115 116 Pulse Oximetry 93 94 Oxygen Delivery Method Room Air Nasal Cannula Oxygen Flow Rate 2 Sepsis Recent Fever Within 48 Hours Sepsis New/Unexplained Change in Mental Status Sepsis Action Taken by Nursing Oxygen Flow Rate - Titration Pulse Oximetry Post Tiitration 04/12/25 04:00 04/12/25 05:00 04/12/25 06:00 Temperature Temperature Source Pulse Rate Pulse Rate [Apical] 74 73 72 Respiratory Rate 22 22 20 Respiratory Effort / Characteristics Non-Labored Spontaneous Non-Labored Spontaneous Non-Labored Spontaneous Respiratory Depth Normal Normal Normal Respiratory Pattern Regular Regular Regular Blood Pressure Blood Pressure [Right Arm] 134/88 144/80 H 149/83 H Blood Pressure Mean Blood Pressure Mean [Right Arm] 103 101 105 Pulse Oximetry 96 94 95 Oxygen Delivery Method Nasal Cannula Nasal Cannula Nasal Cannula Oxygen Flow Rate 2 2 2 Sepsis Recent Fever Within 48 Hours Sepsis New/Unexplained Change in Mental Status Sepsis Action Taken by Nursing Oxygen Flow Rate - Titration Pulse Oximetry Post Tiitration 04/12/25 06:16 Temperature Temperature Source Pulse Rate 73 Pulse Rate [Apical] Respiratory Rate Respiratory Effort / Characteristics Respiratory Depth Respiratory Pattern Blood Pressure Blood Pressure [Right Arm] Blood Pressure Mean Blood Pressure Mean [Right Arm] Pulse Oximetry Oxygen Delivery Method Oxygen Flow Rate Sepsis Recent Fever Within 48 Hours Sepsis New/Unexplained Change in Mental Status Sepsis Action Taken by Nursing Oxygen Flow Rate - Titration Pulse Oximetry Post Tiitration Laboratory Data 04/11/25 22:35 04/11/25 22:35 Lab Results 04/11/25 04/11/25 04/12/25 Range/Units 22:35 22:42 00:05 WBC 16.05 H (4.8-10.8) K/ul RBC 5.67 (4.70-6.10) M/uL Hgb 16.4 (14.0-18.0) g/dl POC Hgb 17.7 (14.0-18.0) g/dl Hct 49.6 (42.0-52.0) % POC Hct 52 (42-52) % MCV 87.5 (80.0-100.0) fL MCH 28.9 (25.0-34.0) pg MCHC 33.1 (32.0-36.0) g/dL RDW Std Deviation 42.8 (36.4-46.3) fL RDW Coeff of Sasha 13.4 (11.5-14.5) % Plt Count 228 (130-400) K/uL MPV 10.0 (9.4-12.4) fL Immature Gran % (Auto) 0.8 % Neut % (Auto) 78.5 % Lymph % (Auto) 10.3 % Dupage % (Auto) 8.6 % Eos % (Auto) 1.4 % Baso % (Auto) 0.4 % Neut # (Auto) 12.60 H (1.40-6.50) K/uL Lymph # (Auto) 1.65 (1.20-3.40) K/uL Dupage # (Auto) 1.38 H (0.11-0.59) K/uL Eos # (Auto) 0.23 (0.00-0.50) K/uL Baso # (Auto) 0.06 (0.00-0.20) K/uL Immature Gran # (Auto) 0.13 (0.01-0.20) K/uL PT 10.9 (9.0-12.0) Seconds INR 1.0 (0.9-1.1) APTT 27 (21-31) Seconds PTT Ratio 1.0 POC Sodium 137 (135-144) mmol/L Sodium 135 L (136-145) mmol/L POC Potassium 3.7 (3.3-5.0) mmol/L Potassium 3.7 (3.5-5.1) mmol/L POC Chloride 102 (101-112) mmol/L Chloride 102 (98-107) mmol/L Carbon Dioxide 24 (21-32) mmol/L POC Total CO2 22 L (24-31) mmol/L Anion Gap 9 (3-11) POC Anion Gap 18.0 (16-25) mmol/L POC BUN 20 H (7-18) mg/dl BUN 18 (6-23) mg/dl Creatinine 0.78 (0.6-1.4) mg/dl POC Creatinine 0.8 (0.6-1.3) mg/dl Est Cr Clr Drug Dosing 101.3 ml/min eGFR 95.34 BUN/Creatinine Ratio 23.1 H (10-20) Glucose 148 H (70-99(Fasting)) mg/dl POC Glucose (other) 148 H (70-99) mg/dl Calcium 9.1 (8.6-10.3) mg/dl POC Ioniz Calcium Iliana 1.16 (1.12-1.32) mmol/l Total Bilirubin 0.9 (0.2-1.0) mg/dl AST 25 (13-39) U/L ALT 28 (7-52) U/L Alkaline Phosphatase 98 (34-104) U/L Troponin I High Sens 8.6 (0-20) pg/ml Total Protein 7.1 (6.0-8.3) gm/dl Albumin 3.7 (3.4-5.0) gm/dl Globulin 3.4 (2.5-4.0) gm/dl Albumin/Globulin Ratio 1.1 (0.9-2) Lipase 15 (11-82) U/L Urine Color Yellow Urine Appearance Clear (Clear) Urine pH 5.5 (4.5-7.5) Ur Specific Warren 1.042 H (1.000-1.030) Urine Protein Negative (Negative) Urine Glucose (UA) 3+ H (Negative) Urine Ketones Trace H (Negative) Urine Blood Negative (Negative) Urine Nitrite Negative (Negative) Urine Bilirubin Negative (Negative) Urine Urobilinogen Negative (Negative) Ur Leukocyte Esterase Negative (Negative) Urine Comment Administered Medications Discontinued Medications Hydromorphone HCl (Hydromorphone Inj 0.5 Mg/0.5 Ml Syr) 0.5 mg IV NOW STA Stop: 04/11/25 22:50 Last Admin: 04/11/25 22:53 Dose: 0.5 mg Documented By: GHASSAN Co-signed By: UMBERTO Hydromorphone HCl (Hydromorphone Inj 1 Mg/Ml Syringe) 1 mg IV NOW STA Stop: 04/12/25 00:08 Last Admin: 04/12/25 00:10 Dose: 1 mg Documented By: ALAN Hydromorphone HCl (Hydromorphone Inj 1 Mg/Ml Syringe) 1 mg IV NOW STA Stop: 04/12/25 03:02 Last Admin: 04/12/25 03:07 Dose: 1 mg Documented By: ALAN Acetaminophen (Ofirmev) 1,000 mg in 100 mls @ 400 mls/hr IV NOW STA Stop: 04/12/25 00:46 Last Infusion: 04/12/25 00:53 Dose: Infused Documented By: Admin: 04/12/25 00:36 Dose: 400 mls/hr Documented By: ALAN Ioversol (Optiray 320 100ml) 93 ml IV ONCE ONE Stop: 04/11/25 23:09 Last Admin: 04/11/25 23:08 Dose: 93 ml Documented By: ERICH Ioversol (Optiray 320 100ml) 93 ml IV ONCE ONE Stop: 04/12/25 02:19 Last Admin: 04/12/25 02:18 Dose: 93 ml Documented By: ERICH Ketorolac Tromethamine (Ketorolac 30 Mg/Ml Vial) 30 mg IV NOW ONE Stop: 04/12/25 00:33 Last Admin: 04/12/25 00:35 Dose: 30 mg Documented By: ALAN Ondansetron HCl (Ondansetron Inj 2 Mg/Ml 2 Ml Vial) 4 mg IV NOW STA Stop: 04/11/25 22:50 Last Admin: 04/11/25 22:53 Dose: 4 mg Documented By: GHASSAN Co-signed By: UMBERTO Imaging Data Radiologist's Impression: Chest X-Ray 04/11/25 22:47 EXAM: XR chest 1V portable CLINICAL HISTORY: Trauma. TECHNIQUE: An X-ray image of the chest is obtained in AP projection. COMPARISON: X-ray dated 01/21/2024. FINDINGS: Pulmonary Parenchyma: Linear atelectatic bands in the left lower zone. Mild haziness over the left costophrenic angle is likely due to soft tissues/pleural thickening. No evidence of consolidation, collapse, or focal opacities. No pulmonary nodules are identified. No evidence of pleural effusion. Heart and Mediastinum: Heart size and shape are normal. No mediastinal widening or masses. No hilar or mediastinal lymphadenopathy. Aortic calcification. Bony Thorax: Slight overlapping of the lateral aspect of the right second rib. Degenerative changes are seen in the spine and right acromioclavicular and glenohumeral joints. Soft Tissues: Soft tissues overlying the chest wall are unremarkable. Sternal sutures are seen. Chest leads are noted. IMPRESSION: No evidence of consolidation or pleural effusion, stable. Slight overlapping of the lateral aspect of the right second rib. New. The possibility of fracture cannot be ruled out, new. Needs clinical correlation, and if required CT scan may be obtained. Electronically signed by Hiram Gaines 04-12-2025 02:04 AM Knee X-Ray 04/11/25 22:47 EXAM: XR knee LT 1 or 2V routine CLINICAL HISTORY: knee pain - fall off ladder. TECHNIQUE: X-ray images of the left knee were obtained in anteroposterior (AP) and lateral projections. COMPARISON: 08/26/2023 X-ray. FINDINGS: Bone structure: There are posterior cortical irregularities with possible cortical fractures on the posterior aspect of the tibial plateau (new). CT is required for better assessment. Joint spaces: Marked osteoarthritis is evident, characterized by joint space narrowing and marginal articular bone spurring. Suprapatellar joint effusion is present. Articular surfaces: The articular surfaces are smooth and intact. There are no signs of osteophyte formation or subchondral sclerosis. Patella: The patella is normal in position and alignment. There is no evidence of patellar dislocation or subluxation. Soft tissues: The periarticular soft tissues appear normal and unremarkable. No soft tissue swelling, calcifications, or foreign bodies are noted. Additional findings: Multifocal high-density structures are seen projecting over the suprapatellar aspect of the knee joint with a chondroid matrix, suggesting synovial chondromatosis. IMPRESSION: 1. There are posterior cortical irregularities with possible cortical fractures on the posterior aspect of the tibial plateau (new). CT is required for better assessment. 2. Marked osteoarthritis is evident, characterized by joint space narrowing and marginal articular bone spurring (chronic). 3. Suprapatellar joint effusion is present (chronic). 4. Multifocal high-density structures are seen projecting over the suprapatellar aspect of the knee joint with a chondroid matrix, suggesting synovial chondromatosis (chronic). 5. Periarticular soft tissue edema is mainly around the medial aspect of the knee joint (progressive). Disclaimer: A subtle bone abnormality or fracture may not be readily apparent on X-rays, thus clinical correlation and further imaging including follow-up CT, MRI, or follow-up X-rays are advised as needed. Electronically signed by Hiram Gaines 04-12-2025 01:47 AM Abdomen/Pelvis CT 04/11/25 22:50 Exam(s): CT ABDOMEN + PELVIS With Contrast IV Amt: 93 cc opti 320 EXAM: CT Abdomen and Pelvis With Intravenous Contrast CLINICAL HISTORY: Reason for exam: Trauma. TECHNIQUE: Axial computed tomography images of the abdomen and pelvis with intravenous contrast. CTDI is 26.48 mGy and DLP is 1464.3 mGy-cm. Automated exposure control was utilized for the study. A dose lowering technique was utilized adhering to the principles of ALARA. CONTRAST: Patient received 93 cc opti 320 of IV contrast COMPARISON: 01/21/2024 FINDINGS: Lung bases: Unremarkable. No mass. No consolidation. ABDOMEN: Liver: Unremarkable. No mass. Gallbladder and bile ducts: Postop changes prior cholecystectomy. No ductal dilation. Pancreas: Unremarkable. No mass. No ductal dilation. Spleen: Unremarkable. No splenomegaly. Adrenals: Unremarkable. No mass. Kidneys and ureters: Simple left-sided parapelvic renal cysts. No follow-up of these simple cysts is necessary. No hydronephrosis. Stomach and bowel: Unremarkable. No obstruction. No mucosal thickening. PELVIS: Appendix: No findings to suggest acute appendicitis. Bladder: Mild distention of the urinary bladder. Reproductive: Unremarkable as visualized. ABDOMEN and PELVIS: Intraperitoneal space: Unremarkable. No free air. No significant fluid collection. Bones/joints: No acute fracture. No dislocation. Soft tissues: Unremarkable. Vasculature: Unremarkable. No abdominal aortic aneurysm. Lymph nodes: Unremarkable. No enlarged lymph nodes. IMPRESSION: No acute findings in the abdomen or pelvis. Electronically signed by: Paulie Reid MD 04/11/25 23:[address] 04/11/25 22:50 Exam(s): CT C SPINE EXAM: CT Cervical Spine Without Intravenous Contrast CLINICAL HISTORY: Reason for exam: Trauma. TECHNIQUE: Axial computed tomography images of the cervical spine without intravenous contrast. CTDI is 26.96 mGy and DLP is 596.88 mGy-cm. Automated exposure control was utilized for the study. A dose lowering technique was utilized adhering to the principles of ALARA. COMPARISON: No relevant prior studies available. FINDINGS: No fracture or subluxations are noted. The vertebral body heights and alignment are preserved. No prevertebral soft tissue swelling. Note is made of multilevel cervical spondylosis with varying degrees of central canal and foramina stenoses. IMPRESSION: 1. No cervical fractures. 2. Cervical spondylosis with varying degrees of central canal and foramina stenoses. Electronically signed by: Paulie Reid MD 04/11/25 23:[address] 04/11/25 22:50 Exam(s): CT CHEST With Contrast IV Amt: 93 cc opti 320 EXAM: CT Chest With Intravenous Contrast CLINICAL HISTORY: Reason for exam: Trauma. TECHNIQUE: Axial computed tomography images of the chest with intravenous contrast. CTDI is 28.14 mGy and DLP is 1091.74 mGy-cm. Automated exposure control was utilized for the study. A dose lowering technique was utilized adhering to the principles of ALARA. CONTRAST: Patient received 93 cc opti 320 of IV contrast COMPARISON: No relevant prior studies available. FINDINGS: Lungs: Unremarkable. No mass. No consolidation. Pleural space: Unremarkable. No significant effusion. No pneumothorax. Heart: Coronary artery calcifications. No cardiomegaly. No significant pericardial effusion. Bones/joints: Postop changes prior median sternotomy. No acute fracture. Soft tissues: Unremarkable. Vasculature: See above. Lymph nodes: Unremarkable. No enlarged lymph nodes. Gallbladder and bile ducts: Postop changes prior cholecystectomy. IMPRESSION: No acute findings in the chest. Electronically signed by: Paulie Reid MD 04/11/25 23:[address] 04/11/25 22:50 Exam(s): CT HEAD Without Contrast EXAM: CT Head Without Intravenous Contrast CLINICAL HISTORY: Reason for exam: trauma. TECHNIQUE: Axial computed tomography images of the head/brain without intravenous contrast. CTDI is 35.65 mGy and DLP is 624.41 mGy-cm. Automated exposure control was utilized for the study. A dose lowering technique was utilized adhering to the principles of ALARA. COMPARISON: No relevant prior studies available. FINDINGS: Brain: Unremarkable. No hemorrhage. No significant white matter disease. No edema. Ventricles: Unremarkable. No ventriculomegaly. Bones/joints: Unremarkable. No acute fracture. Soft tissues: Unremarkable. Sinuses: Unremarkable as visualized. No acute sinusitis. Mastoid air cells: Unremarkable as visualized. No mastoid effusion. IMPRESSION: Normal head/brain CT. Electronically signed by: Paulie Reid MD 04/11/25 23:[address] 04/11/25 22:50 Exam(s): CT L SPINE With Contrast IV Amt: 93 cc opti 320 EXAM: CT Lumbar Spine With Intravenous Contrast CLINICAL HISTORY: Reason for exam: Trauma - may reconstruct from abdomen- eval for fx. TECHNIQUE: Axial computed tomography images of the lumbar spine with intravenous contrast. CTDI is 26.48 mGy and DLP is 1464.3 mGy-cm. Automated exposure control was utilized for the study. A dose lowering technique was utilized adhering to the principles of ALARA. CONTRAST: Patient received 93 cc opti 320 of IV contrast COMPARISON: No relevant prior studies available. FINDINGS: Vertebrae: Unremarkable. No acute fracture. Discs/spinal canal/neural foramina: No acute findings. No spinal canal stenosis. Soft tissues: Unremarkable. IMPRESSION: Normal lumbar spine CT. Electronically signed by: Paulie Reid MD 04/11/25 23:59 PM Foot X-Ray 04/11/25 22:51 Exam(s): XR LEFT FOOT, 3+ views EXAM: XR Left Foot Complete, 3 or More Views CLINICAL HISTORY: Reason for exam: fall from ladder. TECHNIQUE: Frontal, lateral and oblique views of the left foot. COMPARISON: No relevant prior studies available. FINDINGS: Bones/joints: Unremarkable. No acute fracture. No dislocation. Soft tissues: Unremarkable. No radiopaque foreign body. IMPRESSION: Normal left foot x-rays. Electronically signed by: Paulie Reid MD 04/12/25 00:21 AM Foot X-Ray 04/11/25 22:51 Exam(s): XR RIGHT FOOT, 3+ views EXAM: XR Right Foot Complete, 3 or More Views CLINICAL HISTORY: Reason for exam: fall from ladder. TECHNIQUE: Frontal, lateral and oblique views of the right foot. COMPARISON: No relevant prior studies available. FINDINGS: Bones/joints: Unremarkable. No acute fracture. No dislocation. Soft tissues: Unremarkable. No radiopaque foreign body. IMPRESSION: Normal right foot x-rays. Electronically signed by: Paulie Reid MD 04/12/25 00:[address] 04/12/25 01:57 EXAM: CT knee LT w con CLINICAL HISTORY: Eval tibia fracture. TECHNIQUE: Thin axial images of the left knee joint were obtained with contrast, along with coronal and sagittal reconstructions. 93 cc Optiray 320 was administered for post-contrast images. One of the following dose reduction techniques was utilized for this exam: automated exposure control, adjustment of the mA and/or kV according to patient size, and use of iterative reconstruction. COMPARISON: Reviewed prior X-ray dated 04/11/2025. FINDINGS: Bones and Joint Space: No bone fractures are identified. Advanced osteoarthritic changes of the left knee joint are noted, characterized by narrowing of the medial tibiofemoral compartment, marginal osteophytic lipping, subchondral sclerosis, and pseudocystic changes of the opposing articular surfaces. Mild joint effusion with synovial enhancement measuring up to 4 mm in maximal thickness is present. Multiple intra-articular dense loose bodies are identified, predominantly within the suprapatellar pouch (better delineated on CT). Soft Tissues: A fluid collection measuring approximately 3.6 × 2.3 cm with an enhancing irregular lining is seen in the popliteal fossa. Another partially defined fluid collection with an enhancing wall is noted along the medial aspect of the knee, measuring approximately 4.3 × 2.6 cm. Adjacent lytic subchondral changes involving the proximal posterior tibia, corresponding to a cortical defect noted on prior radiograph, appear to communicate with the popliteal collection?raising suspicion for septic arthritis with associated osteomyelitis. MRI with contrast is recommended for further evaluation. IMPRESSION: 1. Mild joint effusion with synovial enhancement. Popliteal and medial periarticular fluid collections with enhancing silverman, suspicious for septic arthritis with possible associated osteomyelitis of the proximal tibia. Recommend MRI with contrast for further assessment (better delineated on CT). 2. Advanced osteoarthritic changes of the left knee. Unchanged. 3. Multiple intra-articular dense loose bodies. Unchanged. 4. CT showed more details compared to prior recent X-ray of the left knee. Electronically signed by Hiram Gaines 04-12-2025 04:14 AM Discharge Plan Visit Data Chief Complaint: Trauma Stated Complaint: FELL 14FT, L KNEE PAIN ED Provider: Shirley Gutiérrez Discharge Problem: Accidental fall from ladder, Low back pain, Acute pain of left knee Condition: Serious Forms Stand Alone Forms: [employer] Prescriptions Prescriptions: No Action cholecalciferol (vitamin D3) 2,000 unit capsule 2,000 units PO QDD (DME) OneTouch Verio test strips Strip See Rx Instructions .ROUTE .MEDSUPPLY Qty: 300 3RF Rx Instructions: Test blood sugar 3 times daily E11.9 (DME) lancets [OneTouch Delica Lancets] 30 gauge misc See Rx Instructions .ROUTE .MEDSUPPLY Qty: 500 3RF Rx Instructions: Test blood sugar five times daily (DME) FreeStyle Crystal 2 Oketo Misc See Rx Instructions .Route Qty: 1 0RF Rx Instructions: As directed (DME) FreeStyle Crystal 2 Sensor Kit See Rx Instructions .Route Qty: 2 11RF Rx Instructions: As directed hydrochlorothiazide 25 mg tablet 25 mg PO QAM Qty: 90 3RF insulin lispro [Admelog SoloStar U-100 Insulin] 100 unit/mL insulin pen See Rx Instructions subcut USEASDIRECTD Qty: 15 2RF Rx Instructions: Use SQ as directed prior to meal per scale. Up to 50units per day; subcutaneously use as directed; doxazosin 1 mg tablet 1 mg PO QPM Qty: 90 1RF pantoprazole 40 mg tablet,delayed release (DR/EC) 40 mg PO DAILY PRN (Reason: Indigestion) Qty: 90 1RF Patient Comments: RARELY fluticasone propionate [Flonase Allergy Relief] 50 mcg/actuation spray,suspension 2 spray INTRANASAL QAM Qty: 16 5RF clopidogrel [Plavix] 75 mg tablet 75 mg PO QAM Qty: 90 3RF levothyroxine 75 mcg tablet 75 mcg PO QAM Qty: 90 1RF metoprolol succinate 25 mg tablet extended release 24 hr 25 mg PO BID Qty: 180 3RF Jardiance 25 mg tablet 25 mg PO DAILY Qty: 90 3RF atorvastatin 80 mg tablet 80 mg PO DAILY Qty: 90 3RF duloxetine 60 mg capsule,delayed release(DR/EC) 60 mg PO BID Qty: 180 3RF cyclobenzaprine 5 mg tablet 2.5 mg PO TID PRN (Reason: muscle spasm) Qty: 30 1RF Patient Comments: HAVEN'T TAKEN IN AWHILE "MAKES ME FUZZY OR SOMETHING I DON'T LIKE THE WAY IT MAKES ME FEEL" (DME) pen needle, diabetic [Easy Comfort Pen Tolstoy] 32 gauge x 5/32" needle See Rx Instructions .ROUTE .MEDSUPPLY Qty: 100 5RF Rx Instructions: Use to inject Basaglar once daily and Novolog PRN tramadol 50 mg tablet 50 mg PO Q8H PRN (Reason: pain) Qty: 60 0RF insulin glargine [Basaglar KwikPen U-100 Insulin] 100 unit/mL (3 mL) insulin pen 65 unit subcut DAILY Qty: 15 2RF aspirin [Adult Low Dose Aspirin] 81 mg tablet,delayed release (DR/EC) 81 mg PO QAM (DME) blood-glucose meter [[employer] Software[employer] Verio Reflect Meter] Misc See Rx Instructions .ROUTE .MEDSUPPLY Qty: 1 0RF Rx Instructions: Test blood sugar five times daily loratadine 10 mg tablet 10 mg PO DAILY budesonide-formoterol [Symbicort] 160-4.5 mcg/actuation HFA aerosol inhaler 1 inh inhalation BID Qty: 10.2 2RF ipratropium-albuterol 0.5 mg-3 mg(2.5 mg base)/3 mL solution for nebulization 3 ml inhalation QID PRN (Reason: wheezing) Qty: 180 3RF albuterol sulfate 90 mcg/actuation HFA aerosol inhaler 2 puff inhalation Q4H PRN (Reason: Shortness Of Breath) Qty: 6.7 2RF prednisone 20 mg tablet 20 - 40 mg PO UD PRN (Reason: BEE STINGS/ANAPHYLAXIS) Qty: 10 0RF nitroglycerin 0.4 mg tablet, sublingual 0.4 mg SL Q5M PRN (Reason: chest pain) Qty: 25 4RF Patient Comments: NOT USED SINCE MY HEART SURGERY Rx Instructions: up to 3 doses. If no resolution of Chest pain after 5 min, call 911. epinephrine 0.3 mg/0.3 mL auto-injector 0.3 mg IM UD PRN (Reason: Anaphylaxis/BEE STINGS) Qty: 2 3RF acetaminophen [Tylenol Extra Strength] 500 mg Tablet 1,000 mg PO UD PRN (Reason: Pain) Medical Marijuana Card 1 dose UD PRN (Reason: Back Pain) Referrals Referrals: Thalia Joseph DO [Primary Care Provider] -
[2025-04-11 23:00] LABS: Hematocrit (blood only) 49.6 % (42.0-52.0); Hemoglobin 16.4 g/dl (14.0-18.0); Immature Granulocytes # (auto) 0.13 K/uL (0.01-0.20); Immature Granulocytes % (auto) 0.8 %; Mean Corpuscular Hemoglobin 28.9 pg (25.0-34.0); Mean Corpuscular Volume 87.5 fL (80.0-100.0); Platelet Count 228 K/uL (130-400); RDW Standard Deviation 42.8 fL (36.4-46.3); Red Blood Count 5.67 M/uL (4.70-6.10); White Blood Count 16.05 K/ul (4.8-10.8)
[2025-04-11] MEDS: OPTIRAY 320 100ml IV ONE (23:08)
[2025-04-11 23:17] LABS: Alanine Aminotransferase 28.0 U/L (7-52); Albumin Globulin Ratio 1.1 (0.9-2); Albumin Level 3.7 gm/dl (3.4-5.0); Alkaline Phosphatase 98.0 U/L (34-104); Anion Gap 9.0 (3-11); Bilirubin,Total 0.9 mg/dl (0.2-1.0); Blood Urea Nitrogen 18.0 mg/dl (6-23); Calcium 9.1 mg/dl (8.6-10.3); Carbon Dioxide 24.0 mmol/L (21-32); Chloride 102.0 mmol/L (98-107); Creatinine Clr Calc Pharmacy 101.3 ml/min; Globulin 3.4 gm/dl (2.5-4.0); Glucose 148.0 mg/dl (70-99(Fasting)); Lipase 15.0 U/L (11-82); Potassium 3.7 mmol/L (3.5-5.1); Sodium 135.0 mmol/L (136-145); Total Protein 7.1 gm/dl (6.0-8.3)
[2025-04-11 23:35] LABS: INR 1.0 (0.9-1.1); Partial Thromboplastin Time 27 Seconds (21-31); Prothrombin Time 10.9 Seconds (9.0-12.0)
--- NOTE | 2025-04-11 23:50 | CT Scan Report ---
Exam(s): CT C SPINE EXAM: CT Cervical Spine Without Intravenous Contrast CLINICAL HISTORY: Reason for exam: Trauma. TECHNIQUE: Axial computed tomography images of the cervical spine without intravenous contrast. CTDI is 26.96 mGy and DLP is 596.88 mGy-cm. Automated exposure control was utilized for the study. A dose lowering technique was utilized adhering to the principles of ALARA. COMPARISON: No relevant prior studies available. FINDINGS: No fracture or subluxations are noted. The vertebral body heights and alignment are preserved. No prevertebral soft tissue swelling. Note is made of multilevel cervical spondylosis with varying degrees of central canal and foramina stenoses. IMPRESSION: 1. No cervical fractures. 2. Cervical spondylosis with varying degrees of central canal and foramina stenoses. Electronically signed by: Paulie Reid MD 04/11/25 23:50 PM
--- NOTE | 2025-04-11 23:51 | CT Scan Report ---
Exam(s): CT HEAD Without Contrast EXAM: CT Head Without Intravenous Contrast CLINICAL HISTORY: Reason for exam: trauma. TECHNIQUE: Axial computed tomography images of the head/brain without intravenous contrast. CTDI is 35.65 mGy and DLP is 624.41 mGy-cm. Automated exposure control was utilized for the study. A dose lowering technique was utilized adhering to the principles of ALARA. COMPARISON: No relevant prior studies available. FINDINGS: Brain: Unremarkable. No hemorrhage. No significant white matter disease. No edema. Ventricles: Unremarkable. No ventriculomegaly. Bones/joints: Unremarkable. No acute fracture. Soft tissues: Unremarkable. Sinuses: Unremarkable as visualized. No acute sinusitis. Mastoid air cells: Unremarkable as visualized. No mastoid effusion. IMPRESSION: Normal head/brain CT. Electronically signed by: Paulie Reid MD 04/11/25 23:50 PM
--- NOTE | 2025-04-11 23:59 | CT Scan Report ---
Exam(s): CT CHEST With Contrast IV Amt: 93 cc opti 320 EXAM: CT Chest With Intravenous Contrast CLINICAL HISTORY: Reason for exam: Trauma. TECHNIQUE: Axial computed tomography images of the chest with intravenous contrast. CTDI is 28.14 mGy and DLP is 1091.74 mGy-cm. Automated exposure control was utilized for the study. A dose lowering technique was utilized adhering to the principles of ALARA. CONTRAST: Patient received 93 cc opti 320 of IV contrast COMPARISON: No relevant prior studies available. FINDINGS: Lungs: Unremarkable. No mass. No consolidation. Pleural space: Unremarkable. No significant effusion. No pneumothorax. Heart: Coronary artery calcifications. No cardiomegaly. No significant pericardial effusion. Bones/joints: Postop changes prior median sternotomy. No acute fracture. Soft tissues: Unremarkable. Vasculature: See above. Lymph nodes: Unremarkable. No enlarged lymph nodes. Gallbladder and bile ducts: Postop changes prior cholecystectomy. IMPRESSION: No acute findings in the chest. Electronically signed by: Paulie Reid MD 04/11/25 23:57 PM
--- NOTE | 2025-04-12 | CT Scan Report ---
Exam(s): CT ABDOMEN + PELVIS With Contrast IV Amt: 93 cc opti 320 EXAM: CT Abdomen and Pelvis With Intravenous Contrast CLINICAL HISTORY: Reason for exam: Trauma. TECHNIQUE: Axial computed tomography images of the abdomen and pelvis with intravenous contrast. CTDI is 26.48 mGy and DLP is 1464.3 mGy-cm. Automated exposure control was utilized for the study. A dose lowering technique was utilized adhering to the principles of ALARA. CONTRAST: Patient received 93 cc opti 320 of IV contrast COMPARISON: 01/21/2024 FINDINGS: Lung bases: Unremarkable. No mass. No consolidation. ABDOMEN: Liver: Unremarkable. No mass. Gallbladder and bile ducts: Postop changes prior cholecystectomy. No ductal dilation. Pancreas: Unremarkable. No mass. No ductal dilation. Spleen: Unremarkable. No splenomegaly. Adrenals: Unremarkable. No mass. Kidneys and ureters: Simple left-sided parapelvic renal cysts. No follow-up of these simple cysts is necessary. No hydronephrosis. Stomach and bowel: Unremarkable. No obstruction. No mucosal thickening. PELVIS: Appendix: No findings to suggest acute appendicitis. Bladder: Mild distention of the urinary bladder. Reproductive: Unremarkable as visualized. ABDOMEN and PELVIS: Intraperitoneal space: Unremarkable. No free air. No significant fluid collection. Bones/joints: No acute fracture. No dislocation. Soft tissues: Unremarkable. Vasculature: Unremarkable. No abdominal aortic aneurysm. Lymph nodes: Unremarkable. No enlarged lymph nodes. IMPRESSION: No acute findings in the abdomen or pelvis. Electronically signed by: Paulie Reid MD 04/11/25 23:59 PM
--- NOTE | 2025-04-12 00:01 | CT Scan Report ---
Exam(s): CT L SPINE With Contrast IV Amt: 93 cc opti 320 EXAM: CT Lumbar Spine With Intravenous Contrast CLINICAL HISTORY: Reason for exam: Trauma - may reconstruct from abdomen- eval for fx. TECHNIQUE: Axial computed tomography images of the lumbar spine with intravenous contrast. CTDI is 26.48 mGy and DLP is 1464.3 mGy-cm. Automated exposure control was utilized for the study. A dose lowering technique was utilized adhering to the principles of ALARA. CONTRAST: Patient received 93 cc opti 320 of IV contrast COMPARISON: No relevant prior studies available. FINDINGS: Vertebrae: Unremarkable. No acute fracture. Discs/spinal canal/neural foramina: No acute findings. No spinal canal stenosis. Soft tissues: Unremarkable. IMPRESSION: Normal lumbar spine CT. Electronically signed by: Paulie Reid MD 04/11/25 23:59 PM
[2025-04-12] MEDS: HYDROmorphone INJ 1 MG/ML SYRINGE IV STA ×2 (00:10→03:07)
--- NOTE | 2025-04-12 00:22 | XRay Report ---
Exam(s): XR LEFT FOOT, 3+ views EXAM: XR Left Foot Complete, 3 or More Views CLINICAL HISTORY: Reason for exam: fall from ladder. TECHNIQUE: Frontal, lateral and oblique views of the left foot. COMPARISON: No relevant prior studies available. FINDINGS: Bones/joints: Unremarkable. No acute fracture. No dislocation. Soft tissues: Unremarkable. No radiopaque foreign body. IMPRESSION: Normal left foot x-rays. Electronically signed by: Paulie Reid MD 04/12/25 00:21 AM
[2025-04-12 00:26] LABS: Appearance Urine Clear (Clear); Glucose Urine UA 3+ (Negative)
--- NOTE | 2025-04-12 00:26 | XRay Report ---
Exam(s): XR RIGHT FOOT, 3+ views EXAM: XR Right Foot Complete, 3 or More Views CLINICAL HISTORY: Reason for exam: fall from ladder. TECHNIQUE: Frontal, lateral and oblique views of the right foot. COMPARISON: No relevant prior studies available. FINDINGS: Bones/joints: Unremarkable. No acute fracture. No dislocation. Soft tissues: Unremarkable. No radiopaque foreign body. IMPRESSION: Normal right foot x-rays. Electronically signed by: Paulie Reid MD 04/12/25 00:25 AM
[2025-04-12] MEDS: KETOROLAC 30 MG/ML VIAL IV ONE (00:35)
[2025-04-12] MEDS: ACETAMINOPHEN 1,000 MG/100 ML VIAL IV STA (00:36)
--- NOTE | 2025-04-12 01:47 | XRay Report ---
EXAM: XR knee LT 1 or 2V routine CLINICAL HISTORY: knee pain - fall off ladder. TECHNIQUE: X-ray images of the left knee were obtained in anteroposterior (AP) and lateral projections. COMPARISON: 08/26/2023 X-ray. FINDINGS: Bone structure: There are posterior cortical irregularities with possible cortical fractures on the posterior aspect of the tibial plateau (new). CT is required for better assessment. Joint spaces: Marked osteoarthritis is evident, characterized by joint space narrowing and marginal articular bone spurring. Suprapatellar joint effusion is present. Articular surfaces: The articular surfaces are smooth and intact. There are no signs of osteophyte formation or subchondral sclerosis. Patella: The patella is normal in position and alignment. There is no evidence of patellar dislocation or subluxation. Soft tissues: The periarticular soft tissues appear normal and unremarkable. No soft tissue swelling, calcifications, or foreign bodies are noted. Additional findings: Multifocal high-density structures are seen projecting over the suprapatellar aspect of the knee joint with a chondroid matrix, suggesting synovial chondromatosis. IMPRESSION: 1. There are posterior cortical irregularities with possible cortical fractures on the posterior aspect of the tibial plateau (new). CT is required for better assessment. 2. Marked osteoarthritis is evident, characterized by joint space narrowing and marginal articular bone spurring (chronic). 3. Suprapatellar joint effusion is present (chronic). 4. Multifocal high-density structures are seen projecting over the suprapatellar aspect of the knee joint with a chondroid matrix, suggesting synovial chondromatosis (chronic). 5. Periarticular soft tissue edema is mainly around the medial aspect of the knee joint (progressive). Disclaimer: A subtle bone abnormality or fracture may not be readily apparent on X-rays, thus clinical correlation and further imaging including follow-up CT, MRI, or follow-up X-rays are advised as needed. Electronically signed by Hiram Gaines 04-12-2025 01:47 AM
--- NOTE | 2025-04-12 02:04 | XRay Report ---
EXAM: XR chest 1V portable CLINICAL HISTORY: Trauma. TECHNIQUE: An X-ray image of the chest is obtained in AP projection. COMPARISON: X-ray dated 01/21/2024. FINDINGS: Pulmonary Parenchyma: Linear atelectatic bands in the left lower zone. Mild haziness over the left costophrenic angle is likely due to soft tissues/pleural thickening. No evidence of consolidation, collapse, or focal opacities. No pulmonary nodules are identified. No evidence of pleural effusion. Heart and Mediastinum: Heart size and shape are normal. No mediastinal widening or masses. No hilar or mediastinal lymphadenopathy. Aortic calcification. Bony Thorax: Slight overlapping of the lateral aspect of the right second rib. Degenerative changes are seen in the spine and right acromioclavicular and glenohumeral joints. Soft Tissues: Soft tissues overlying the chest wall are unremarkable. Sternal sutures are seen. Chest leads are noted. IMPRESSION: No evidence of consolidation or pleural effusion, stable. Slight overlapping of the lateral aspect of the right second rib. New. The possibility of fracture cannot be ruled out, new. Needs clinical correlation, and if required CT scan may be obtained. Electronically signed by Hiram Gaines 04-12-2025 02:04 AM
[2025-04-12] MEDS: OPTIRAY 320 100ml IV ONE (02:18)
--- NOTE | 2025-04-12 04:14 | CT Scan Report ---
EXAM: CT knee LT w con CLINICAL HISTORY: Eval tibia fracture. TECHNIQUE: Thin axial images of the left knee joint were obtained with contrast, along with coronal and sagittal reconstructions. 93 cc Optiray 320 was administered for post-contrast images. One of the following dose reduction techniques was utilized for this exam: automated exposure control, adjustment of the mA and/or kV according to patient size, and use of iterative reconstruction. COMPARISON: Reviewed prior X-ray dated 04/11/2025. FINDINGS: Bones and Joint Space: No bone fractures are identified. Advanced osteoarthritic changes of the left knee joint are noted, characterized by narrowing of the medial tibiofemoral compartment, marginal osteophytic lipping, subchondral sclerosis, and pseudocystic changes of the opposing articular surfaces. Mild joint effusion with synovial enhancement measuring up to 4 mm in maximal thickness is present. Multiple intra-articular dense loose bodies are identified, predominantly within the suprapatellar pouch (better delineated on CT). Soft Tissues: A fluid collection measuring approximately 3.6 × 2.3 cm with an enhancing irregular lining is seen in the popliteal fossa. Another partially defined fluid collection with an enhancing wall is noted along the medial aspect of the knee, measuring approximately 4.3 × 2.6 cm. Adjacent lytic subchondral changes involving the proximal posterior tibia, corresponding to a cortical defect noted on prior radiograph, appear to communicate with the popliteal collection?raising suspicion for septic arthritis with associated osteomyelitis. MRI with contrast is recommended for further evaluation. IMPRESSION: 1. Mild joint effusion with synovial enhancement. Popliteal and medial periarticular fluid collections with enhancing silverman, suspicious for septic arthritis with possible associated osteomyelitis of the proximal tibia. Recommend MRI with contrast for further assessment (better delineated on CT). 2. Advanced osteoarthritic changes of the left knee. Unchanged. 3. Multiple intra-articular dense loose bodies. Unchanged. 4. CT showed more details compared to prior recent X-ray of the left knee. Electronically signed by Hiram Gaines 04-12-2025 04:14 AM
--- NOTE | 2025-04-12 05:28 | History & Physical Report ---
Date of Service April 12, 2025 Assessment & Plan (1) Trauma: (2) Accidental fall from ladder: (3) Left knee injury: (4) Low back pain: (5) Hypertension: (6) CAD (coronary artery disease): Plan 70yo male with history of CAD, DM, HTN, Gout presenting after a fall from ladder - appx 14 feet. Paitent with injury to left knee. As above, CT read as possible septic arthritis. Unclear if these findings are trauma related vs chronic? #Fall/Trauma - no head injury or LOC. C-spine cleared -Pain control with Tylenol, Tramadol and Morphine PRN -Flexeril PRN -PT/OT evaluations to be ordered after Ortho #Left knee pain - findings on CT as above raise concern for possible septic arthritis. Patient reports being told that he has an infection in this knee but is unclear of the details. -Check ESR and CRP -Check MRI knee -Ortho consultation appreciated -Will need PT/OT evaluation #CAD - stable -Continue ASA, Atorvastatin, Plavix, Metoprolol #Diabetes -Lantus 25u BID -ISS #Hypothyroidism -Synthroid History of Present Illness Chief Complaint: fall, left knee pain Primary Care Provider: Thalia Joseph DO Maik Tatum is a 70yo male with history of CAD s/p CABG, DM, HTN, GERD and Gout presenting after a fall from a ladder. Patient was standing on a ladder installing a solar light for the dogs when he lost his balance and fell off a ladder from approximately 14 feet. He landed on the gravel - left knee and shoulder. No head trauma or LOC. Now with pain in his left knee and left back. Reports chronic arthritis in his left knee - has had multiple injections and joint aspirations. Follows with Dr. Winchester from Ortho and Dr. Tsang ER Course: Dilaudid 0.5mg Zofran 4mg Dilaudid 1mg TOradol 30mg Tylenol 1gm Dilaudid 1mg Allergies Allergy/AdvReac Type Severity Reaction Status Date / Time bee venom protein (honey bee) Allergy Severe ANAPHYLACTI Verified 03/16/25 10:24 C clindamycin Allergy Intermediate hives, Verified 03/16/25 10:24 swellling, short of breath - SEE NOTES BELOW Influenza Virus Vaccines Allergy Intermediate HX Verified 03/16/25 10:24 HIVES,LOCALIZED SWELLING - SEE NOTES mold Allergy Mild EYES Verified 03/16/25 10:24 WATER, NOSE WATER Penicillins Allergy Mild RASH/TROUBLE Verified 03/16/25 10:24 BREATHING Sulfa (Sulfonamide Allergy Mild RASH/TROUBLE Verified 03/16/25 10:24 Antibiotics) BREATHING insulin regular Allergy Unknown PT NOT Verified 03/16/25 10:24 [From Humulin R Regular SURE ? U-100 Insuln] INCONCLUSIVE DUST MITES Allergy Mild EYES Uncoded 03/16/25 10:24 WATER, NOSE WATER Home Medications Medication Instructions Recorded Confirmed Type cholecalciferol (vitamin D3) 50 2,000 units PO QDD 01/05/19 03/24/25 History mcg (2,000 unit) capsule aspirin 81 mg tablet,delayed 81 mg PO QAM 09/23/20 03/24/25 History release (Adult Low Dose Aspirin) blood-glucose meter (AgillicTouch #1 ea 11/10/20 03/24/25 Rx Verio Reflect Meter) OneTouch Verio test strips (blood #300 ea 12/28/20 03/24/25 Rx sugar diagnostic) acetaminophen 500 mg tablet 1,000 mg PO UD PRN Pain 02/09/21 03/24/25 History (Tylenol Extra Strength) Medical Marijuana Card 1 dose UD PRN Back Pain 09/05/21 03/24/25 History loratadine 10 mg tablet 10 mg PO DAILY 02/14/22 03/24/25 History lancets 30 gauge (OneTouch Delica #500 ea 08/17/22 03/24/25 Rx Lancets) flash glucose scanning reader #1 ea 01/14/23 03/24/25 Rx (FreeStyle Crystal 2 [place]) flash glucose sensor (FreeStyle #2 ea 01/14/23 03/24/25 Rx Crystal 2 Sensor kit) epinephrine 0.3 mg/0.3 mL 0.3 mg (0.3 mL) IM UD PRN 11/19/23 03/24/25 Rx injection, auto-injector Anaphylaxis/BEE STINGS #2 ea nitroglycerin 0.4 mg sublingual 0.4 mg sublingual Q5M PRN chest 11/19/23 03/24/25 Rx tablet pain #25 tabs prednisone 20 mg tablet 20 - 40 mg (1 - 2 x 20 mg) PO UD 11/19/23 03/24/25 Rx PRN BEE STINGS/ANAPHYLAXIS #10 tabs hydrochlorothiazide 25 mg tablet 25 mg PO QAM #90 tabs 06/19/24 03/24/25 Rx insulin lispro 100 unit/mL See Rx Instructions subcut 07/14/24 03/24/25 Rx subcutaneous pen (Admelog SolEddiear USEASDIRECTD #15 mL U-) doxazosin 1 mg tablet 1 mg PO QPM #90 tabs 10/14/24 03/24/25 Rx pantoprazole 40 mg tablet,delayed 40 mg PO DAILY PRN Indigestion #90 11/04/24 03/24/25 Rx release tabs fluticasone propionate 50 2 spray intranasal QAM #16 grams 11/25/24 03/24/25 Rx mcg/actuation nasal spray,suspension (Flonase Allergy Relief) clopidogrel 75 mg tablet (Plavix) 75 mg PO QAM #90 tabs 12/04/24 03/24/25 Rx levothyroxine 75 mcg tablet 75 mcg PO QAM #90 tabs 12/14/24 03/24/25 Rx empagliflozin 25 mg tablet 25 mg PO DAILY #90 tabs 01/18/25 03/24/25 Rx (Jardiance) metoprolol succinate 25 mg 25 mg PO BID #180 tabs 01/18/25 03/24/25 Rx tablet,extended release 24 hr atorvastatin 80 mg tablet 80 mg PO DAILY #90 tabs 02/23/25 03/24/25 Rx duloxetine 60 mg capsule,delayed 60 mg PO BID #180 caps 03/01/25 03/24/25 Rx release cyclobenzaprine 5 mg tablet 2.5 mg (1/2 x 5 mg) PO TID PRN 03/15/25 03/24/25 Rx muscle spasm #30 tabs pen needle, diabetic 32 gauge x #100 ea 03/22/25 03/24/25 Rx 5/32" (Easy Comfort [place]) albuterol sulfate 90 mcg/actuation 2 puff inhalation Q4H PRN 03/24/25 03/24/25 Rx aerosol inhaler Shortness Of Breath #6.7 grams budesonide-formoterol HFA 160 1 inh inhalation BID #10.2 grams 03/24/25 03/24/25 Rx mcg-4.5 mcg/actuation aerosol inhaler (Symbicort) ipratropium 0.5 mg-albuterol 3 mg 3 ml inhalation QID PRN wheezing 03/24/25 03/24/25 Rx (2.5 mg base)/3 mL nebulization #180 mL soln tramadol 50 mg tablet 50 mg PO Q8H PRN pain #60 tabs 04/02/25 Rx insulin glargine 100 unit/mL (3 65 unit (0.65 mL) subcut DAILY #15 04/07/25 Rx mL) subcutaneous pen (Basaglar mL KwikPen U-100 Insulin) Past Med/Surg History Problem List (Updated 04/12/25 @ 06:54 by Sabina Miranda DO) Left knee injury Trauma Acute pain of left knee (Acute) Low back pain (Acute) Accidental fall from ladder (Acute) Tobacco use disorder Glossitis Xerostomia Fatty liver Elevated liver enzymes Cognitive dysfunction 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- last one being 10 yrs ago from fall on ice resulting in cervical fx and skull fx- life flighted [facility] History of colon polyps Lumbar spinal stenosis Osteoarthritis Neuropathy IBS (irritable bowel syndrome) Hypothyroidism Hypertension History of CT (myocardial infarction) FOLLOWS W/ MAXIMO LAST VISIT 11/08/212018...STENT X1 - [facility] 2019 - CONTINUED TO HAVE PROBLEMS...BLOCKAGE FOUND, DOUBLE BYPASS IN [place] Agustín's thyroiditis GERD (gastroesophageal reflux disease) Distal myopathy Dyslipidemia Cervical disc disease CAD (coronary artery disease) Asthma USES PRN INH SUMMER MONTHS ONLY Vitamin D deficiency Status post double vessel coronary artery bypass Protrusion of cervical intervertebral disc Medical History Lower back pain Campylobacter diarrhea Chest pain Post concussion syndrome Gait disturbance History of fatty infiltration of liver History of colon polyps Nasal fracture HX History of cervical fracture 2012 History of gout PSEUDO GOUT History of stomach ulcers 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 LONGO Q6M - SHORT TERM MEMORY ISSUES Migraine Surgical History History of colonoscopy S/P CABG x 2 (04/13/20) GARZA to LAD and SVG to OM (04/13/20) History of coronary artery stent placement (06/11/19) PCI to mid LAD w/ ANJALI S/P tonsillectomy and adenoidectomy HX S/P foot surgery HX b/l plantar fascia release History of cataract surgery RT/LEFT H/O repair of rotator cuff BL History of carpal tunnel release of both wrists History of sinus surgery History of appendectomy History of arthroscopic knee surgery BL History of cholecystectomy History of cardiac cath Family History Mother , age 42 of a renal infection Diabetes Kidney disease Aunt Colorectal cancer FH: ovarian cancer Father , age 72 of cancer Liver cancer Metastatic to brain and lung Hypertension Lung cancer Cancer brain Brother Pancreatic cancer Denies family history of Prostate cancer Myocardial infarction Breast cancer Social History Smoking Status: Former smoker Tobacco Type: Cigarettes Age Started Using Tobacco: 17; Age Quit Using Tobacco: 41; packs per day: 2; Second Hand Exposure: No; Do You Dip or Chew Tobacco: No; Hx Alcohol Use: Yes Alcohol type: wine Hx Substance Use: Yes Last Used Substance: Unknown Substance Use Type Other:: medical marijuana Preferred Language: Swedish Communication Ability: Effective Visual Impairment: No Limitations Hearing Ability: Normal 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 ) during the past year weight has: remained stable Dental Care, Regularly: Yes Physical Activity Frequency: Daily Seatbelt Use: always Sunscreen Use: Yes Assistive Devices: Cane, Scooter/Electric Scooter and Wheelchair Review of Systems Review of Systems: All systems reviewed & are unremarkable except as noted in HPI & below Physical Exam Physical Exam: General: patient resting comfortably, NAD, non-toxic in appearance, AA&O x 4 Skin: warm, dry, intact, no rashes or lesions HEENT: NC/AT, PERRL, EOMI, anicteric sclera, conjunctiva without injection, external ear normal to inspection and nontender, nares patent, moist mucus membranes, dentition intact, no oropharyngeal lesions, neck supple, trachea midline, no LAD, no thyromegaly, no JVD Heart: +S1/S2, regular, no m/r/g Lungs: equal air entry bilaterally, no rales/rhonchi/wheezes Abd: +BS, soft, NT/ND, no masses/organomegaly/ascites Ext: warm, 2+ pulses in UE/LE bilaterally, no clubbing/cyanosis or edema, left knee with warmth, swelling and tenderness Neuro: nonfocal, patient AA&O x 4, speech intact, no facial droop, moving all extremities on command with equal strength 5/5 Results & Data Results & Data Vital Signs (Past 12 Hours) Vital Signs Temp Pulse Pulse Resp BP BP Pulse Ox 04/12/25 04:00 74 22 134/88 96 04/12/25 03:00 73 20 164/93 H 94 04/12/25 02:34 81 04/12/25 02:00 81 22 167/89 H 93 04/12/25 01:00 84 20 163/99 H 95 04/12/25 00:00 82 24 165/99 H 96 04/11/25 23:09 87 20 161/100 H 95 04/11/25 22:47 95 04/11/25 22:37 83 04/11/25 22:32 92 04/11/25 22:32 37 C 81 20 184/115 H 92 04/11/25 22:32 37 C 81 20 189/115 H 92 04/11/25 22:32 37 C 81 20 189/115 H 92 O2 Del Method O2 Flow Rate 04/12/25 04:00 Nasal Cannula 2 04/12/25 03:00 Nasal Cannula 2 04/12/25 02:34 04/12/25 02:00 Room Air 04/12/25 01:00 Nasal Cannula 2 04/12/25 00:00 Nasal Cannula 2 04/11/25 23:09 Nasal Cannula 2 04/11/25 22:47 Nasal Cannula 2 04/11/25 22:37 04/11/25 22:32 Room Air 04/11/25 22:32 Room Air 04/11/25 22:32 Room Air 04/11/25 22:32 Room Air 0 Laboratory Results Laboratory Results WBC 16.05 K/ul (4.8-10.8) H 04/11/25 22:35 RBC 5.67 M/uL (4.70-6.10) 04/11/25 22:35 Hgb 16.4 g/dl (14.0-18.0) 04/11/25 22:35 POC Hgb 17.7 g/dl (14.0-18.0) 04/11/25 22:42 Hct 49.6 % (42.0-52.0) 04/11/25 22:35 POC Hct 52 % (42-52) 04/11/25 22:42 MCV 87.5 fL (80.0-100.0) 04/11/25 22: MCH 28.9 pg (25.0-34.0) 04/11/25 22:35 MCHC 33.1 g/dL (32.0-36.0) 04/11/25:35 RDW Std Deviation 42.8 fL (36.4-46.3) 04/11/25: RDW Coeff of Sasha 13.4 % (11.5-14.5) 04/11/25 22:35 Plt Count 228 K/uL (130-400) 04/11/25 22:35 MPV 10.0 fL (9.4-12.4) 04/11/25 22:35 Immature Gran % (Auto) 0.8 % 04/11/25 22:35 Neut % (Auto) 78.5 % 04/11/25 22:35 Lymph % (Auto) 10.3 % 04/11/25 22:35 [place] % (Auto) 8.6 % 04/11/25 22:35 Eos % (Auto) 1.4 % 04/11/25 22:35 Baso % (Auto) 0.4 % 04/11/25 22:35 Neut # (Auto) 12.60 K/uL (1.40-6.50) H 04/11/25 22:35 Lymph # (Auto) 1.65 K/uL (1.20-3.40) 04/11/25 22:35 [place] # (Auto) 1.38 K/uL (0.11-0.59) H 04/11/25 22:35 Eos # (Auto) 0.23 K/uL (0.00-0.50) 04/11/25 22:35 Baso # (Auto) 0.06 K/uL (0.00-0.20) 04/11/25 22:35 Immature Gran # (Auto) 0.13 K/uL (0.01-0.20) 04/11/25 22:35 PT 10.9 Seconds (9.0-12.0) 04/11/25 22:35 INR 1.0 (0.9-1.1) 04/11/25 22:35 APTT 27 Seconds (21-31) 04/11/25 22:35 PTT Ratio 1.0 04/11/25 22:35 POC Sodium 137 mmol/L (135-144) 04/11/25 22:42 Sodium 135 mmol/L (136-145) L 04/11/25 22:35 POC Potassium 3.7 mmol/L (3.3-5.0) 04/11/25 22:42 Potassium 3.7 mmol/L (3.5-5.1) 04/11/25 22:35 POC Chloride 102 mmol/L (101-112) 04/11/25 22:42 Chloride 102 mmol/L (98-107) 04/11/25 22:35 Carbon Dioxide 24 mmol/L (21-32) 04/11/25 22:35 POC Total CO2 22 mmol/L (24-31) L 04/11/25 22:42 Anion Gap 9 (3-11) 04/11/25 22:35 POC Anion Gap 18.0 mmol/L (16-25) 04/11/25 22:42 POC BUN 20 mg/dl (7-18) H 04/11/25 22:42 BUN 18 mg/dl (6-23) 04/11/25 22:35 Creatinine 0.78 mg/dl (0.6-1.4) 04/11/25 22:35 POC Creatinine 0.8 mg/dl (0.6-1.3) 04/11/25 22:42 Est Cr Clr Drug Dosing 101.3 ml/min 04/11/25 22:35 eGFR 95.34 04/11/25 22:35 BUN/Creatinine Ratio 23.1 (10-20) H 04/11/25 22:35 Glucose 148 mg/dl (70-99(Fasting)) H 04/11/25 22:35 POC Glucose (other) 148 mg/dl (70-99) H 04/11/25 22:42 Calcium 9.1 mg/dl (8.6-10.3) 04/11/25 22:35 POC Ioniz Calcium [place] 1.16 mmol/l (1.12-1.32) 04/11/25 22:42 Total Bilirubin 0.9 mg/dl (0.2-1.0) 04/11/25 22:35 AST 25 U/L (13-39) 04/11/25 22:35 ALT 28 U/L (7-52) 04/11/25 22:35 Alkaline Phosphatase 98 U/L (34-104) 04/11/25 22: Troponin I High Sens 8.6 pg/ml (0-20) 04/11/25 22: Total Protein 7.1 gm/dl (6.0-8.3) 04/11/25 22: Albumin 3.7 gm/dl (3.4-5.0) 04/11/25: Globulin 3.4 gm/dl (2.5-4.0) 04/11/25 22:35 Albumin/Globulin Ratio 1.1 (0.9-2) 04/11/25: Lipase 15 U/L (11-82) 04/11/25 22:35 Urine Color Yellow 04/12/25 00:05 Urine Appearance Clear (Clear) 04/12/25 00:05 Urine pH 5.5 (4.5-7.5) 04/12/25 00:05 Ur Specific [place] 1.042 (1.000-1.030) H 04/12/25 00:05 Urine Protein Negative (Negative) 04/12/25 00:05 Urine Glucose (UA) 3+ (Negative) H 04/12/25 00:05 Urine Ketones Trace (Negative) H 04/12/25 00:05 Urine Blood Negative (Negative) 04/12/25 00:05 Urine Nitrite Negative (Negative) 04/12/25 00:05 Urine Bilirubin Negative (Negative) 04/12/25 00:05 Urine Urobilinogen Negative (Negative) 04/12/25 00:05 Ur Leukocyte Esterase Negative (Negative) 04/12/25 00:05 Urine Comment 04/12/25 00:05 Impressions Chest X-Ray 04/11/25 22:47 EXAM: XR chest 1V portable CLINICAL HISTORY: Trauma. TECHNIQUE: An X-ray image of the chest is obtained in AP projection. COMPARISON: X-ray dated 01/21/2024. FINDINGS: Pulmonary Parenchyma: Linear atelectatic bands in the left lower zone. Mild haziness over the left costophrenic angle is likely due to soft tissues/pleural thickening. No evidence of consolidation, collapse, or focal opacities. No pulmonary nodules are identified. No evidence of pleural effusion. Heart and Mediastinum: Heart size and shape are normal. No mediastinal widening or masses. No hilar or mediastinal lymphadenopathy. Aortic calcification. Bony Thorax: Slight overlapping of the lateral aspect of the right second rib. Degenerative changes are seen in the spine and right acromioclavicular and glenohumeral joints. Soft Tissues: Soft tissues overlying the chest wall are unremarkable. Sternal sutures are seen. Chest leads are noted. IMPRESSION: No evidence of consolidation or pleural effusion, stable. Slight overlapping of the lateral aspect of the right second rib. New. The possibility of fracture cannot be ruled out, new. Needs clinical correlation, and if required CT scan may be obtained. Electronically signed by Hiram Gaines 04-12-2025 02:04 AM Knee X-Ray 04/11/25 22:47 EXAM: XR knee LT 1 or 2V routine CLINICAL HISTORY: knee pain - fall off ladder. TECHNIQUE: X-ray images of the left knee were obtained in anteroposterior (AP) and lateral projections. COMPARISON: 08/26/2023 X-ray. FINDINGS: Bone structure: There are posterior cortical irregularities with possible cortical fractures on the posterior aspect of the tibial plateau (new). CT is required for better assessment. Joint spaces: Marked osteoarthritis is evident, characterized by joint space narrowing and marginal articular bone spurring. Suprapatellar joint effusion is present. Articular surfaces: The articular surfaces are smooth and intact. There are no signs of osteophyte formation or subchondral sclerosis. Patella: The patella is normal in position and alignment. There is no evidence of patellar dislocation or subluxation. Soft tissues: The periarticular soft tissues appear normal and unremarkable. No soft tissue swelling, calcifications, or foreign bodies are noted. Additional findings: Multifocal high-density structures are seen projecting over the suprapatellar aspect of the knee joint with a chondroid matrix, suggesting synovial chondromatosis. IMPRESSION: 1. There are posterior cortical irregularities with possible cortical fractures on the posterior aspect of the tibial plateau (new). CT is required for better assessment. 2. Marked osteoarthritis is evident, characterized by joint space narrowing and marginal articular bone spurring (chronic). 3. Suprapatellar joint effusion is present (chronic). 4. Multifocal high-density structures are seen projecting over the suprapatellar aspect of the knee joint with a chondroid matrix, suggesting synovial chondromatosis (chronic). 5. Periarticular soft tissue edema is mainly around the medial aspect of the knee joint (progressive). Disclaimer: A subtle bone abnormality or fracture may not be readily apparent on X-rays, thus clinical correlation and further imaging including follow-up CT, MRI, or follow-up X-rays are advised as needed. Electronically signed by Hiram Gaines 04-12-2025 01:47 AM Abdomen/Pelvis CT 04/11/25 22:50 Exam(s): CT ABDOMEN + PELVIS With Contrast IV Amt: 93 cc opti 320 EXAM: CT Abdomen and Pelvis With Intravenous Contrast CLINICAL HISTORY: Reason for exam: Trauma. TECHNIQUE: Axial computed tomography images of the abdomen and pelvis with intravenous contrast. CTDI is 26.48 mGy and DLP is 1464.3 mGy-cm. Automated exposure control was utilized for the study. A dose lowering technique was utilized adhering to the principles of ALARA. CONTRAST: Patient received 93 cc opti 320 of IV contrast COMPARISON: 01/21/2024 FINDINGS: Lung bases: Unremarkable. No mass. No consolidation. ABDOMEN: Liver: Unremarkable. No mass. Gallbladder and bile ducts: Postop changes prior cholecystectomy. No ductal dilation. Pancreas: Unremarkable. No mass. No ductal dilation. Spleen: Unremarkable. No splenomegaly. Adrenals: Unremarkable. No mass. Kidneys and ureters: Simple left-sided parapelvic renal cysts. No follow-up of these simple cysts is necessary. No hydronephrosis. Stomach and bowel: Unremarkable. No obstruction. No mucosal thickening. PELVIS: Appendix: No findings to suggest acute appendicitis. Bladder: Mild distention of the urinary bladder. Reproductive: Unremarkable as visualized. ABDOMEN and PELVIS: Intraperitoneal space: Unremarkable. No free air. No significant fluid collection. Bones/joints: No acute fracture. No dislocation. Soft tissues: Unremarkable. Vasculature: Unremarkable. No abdominal aortic aneurysm. Lymph nodes: Unremarkable. No enlarged lymph nodes. IMPRESSION: No acute findings in the abdomen or pelvis. Electronically signed by: Paulie Reid MD 04/11/25 23:[address] 04/11/25 22:50 Exam(s): CT C SPINE EXAM: CT Cervical Spine Without Intravenous Contrast CLINICAL HISTORY: Reason for exam: Trauma. TECHNIQUE: Axial computed tomography images of the cervical spine without intravenous contrast. CTDI is 26.96 mGy and DLP is 596.88 mGy-cm. Automated exposure control was utilized for the study. A dose lowering technique was utilized adhering to the principles of ALARA. COMPARISON: No relevant prior studies available. FINDINGS: No fracture or subluxations are noted. The vertebral body heights and alignment are preserved. No prevertebral soft tissue swelling. Note is made of multilevel cervical spondylosis with varying degrees of central canal and foramina stenoses. IMPRESSION: 1. No cervical fractures. 2. Cervical spondylosis with varying degrees of central canal and foramina stenoses. Electronically signed by: Paulie Reid MD 04/11/25 23:[address] 04/11/25 22:50 Exam(s): CT CHEST With Contrast IV Amt: 93 cc opti 320 EXAM: CT Chest With Intravenous Contrast CLINICAL HISTORY: Reason for exam: Trauma. TECHNIQUE: Axial computed tomography images of the chest with intravenous contrast. CTDI is 28.14 mGy and DLP is 1091.74 mGy-cm. Automated exposure control was utilized for the study. A dose lowering technique was utilized adhering to the principles of ALARA. CONTRAST: Patient received 93 cc opti 320 of IV contrast COMPARISON: No relevant prior studies available. FINDINGS: Lungs: Unremarkable. No mass. No consolidation. Pleural space: Unremarkable. No significant effusion. No pneumothorax. Heart: Coronary artery calcifications. No cardiomegaly. No significant pericardial effusion. Bones/joints: Postop changes prior median sternotomy. No acute fracture. Soft tissues: Unremarkable. Vasculature: See above. Lymph nodes: Unremarkable. No enlarged lymph nodes. Gallbladder and bile ducts: Postop changes prior cholecystectomy. IMPRESSION: No acute findings in the chest. Electronically signed by: Paulie Reid MD 04/11/25 23:[address] 04/11/25 22:50 Exam(s): CT HEAD Without Contrast EXAM: CT Head Without Intravenous Contrast CLINICAL HISTORY: Reason for exam: trauma. TECHNIQUE: Axial computed tomography images of the head/brain without intravenous contrast. CTDI is 35.65 mGy and DLP is 624.41 mGy-cm. Automated exposure control was utilized for the study. A dose lowering technique was utilized adhering to the principles of ALARA. COMPARISON: No relevant prior studies available. FINDINGS: Brain: Unremarkable. No hemorrhage. No significant white matter disease. No edema. Ventricles: Unremarkable. No ventriculomegaly. Bones/joints: Unremarkable. No acute fracture. Soft tissues: Unremarkable. Sinuses: Unremarkable as visualized. No acute sinusitis. Mastoid air cells: Unremarkable as visualized. No mastoid effusion. IMPRESSION: Normal head/brain CT. Electronically signed by: Paulie Reid MD 04/11/25 23:[address] 04/11/25 22:50 Exam(s): CT L SPINE With Contrast IV Amt: 93 cc opti 320 EXAM: CT Lumbar Spine With Intravenous Contrast CLINICAL HISTORY: Reason for exam: Trauma - may reconstruct from abdomen- eval for fx. TECHNIQUE: Axial computed tomography images of the lumbar spine with intravenous contrast. CTDI is 26.48 mGy and DLP is 1464.3 mGy-cm. Automated exposure control was utilized for the study. A dose lowering technique was utilized adhering to the principles of ALARA. CONTRAST: Patient received 93 cc opti 320 of IV contrast COMPARISON: No relevant prior studies available. FINDINGS: Vertebrae: Unremarkable. No acute fracture. Discs/spinal canal/neural foramina: No acute findings. No spinal canal stenosis. Soft tissues: Unremarkable. IMPRESSION: Normal lumbar spine CT. Electronically signed by: Paulie Reid MD 04/11/25 23:59 PM Foot X-Ray 04/11/25 22:51 Exam(s): XR RIGHT FOOT, 3+ views EXAM: XR Right Foot Complete, 3 or More Views CLINICAL HISTORY: Reason for exam: fall from ladder. TECHNIQUE: Frontal, lateral and oblique views of the right foot. COMPARISON: No relevant prior studies available. FINDINGS: Bones/joints: Unremarkable. No acute fracture. No dislocation. Soft tissues: Unremarkable. No radiopaque foreign body. IMPRESSION: Normal right foot x-rays. Electronically signed by: Paulie Reid MD 04/12/25 00:[address] 04/12/25 01:57 EXAM: CT knee LT w con CLINICAL HISTORY: Eval tibia fracture. TECHNIQUE: Thin axial images of the left knee joint were obtained with contrast, along with coronal and sagittal reconstructions. 93 cc Optiray 320 was administered for post-contrast images. One of the following dose reduction techniques was utilized for this exam: automated exposure control, adjustment of the mA and/or kV according to patient size, and use of iterative reconstruction. COMPARISON: Reviewed prior X-ray dated 04/11/2025. FINDINGS: Bones and Joint Space: No bone fractures are identified. Advanced osteoarthritic changes of the left knee joint are noted, characterized by narrowing of the medial tibiofemoral compartment, marginal osteophytic lipping, subchondral sclerosis, and pseudocystic changes of the opposing articular surfaces. Mild joint effusion with synovial enhancement measuring up to 4 mm in maximal thickness is present. Multiple intra-articular dense loose bodies are identified, predominantly within the suprapatellar pouch (better delineated on CT). Soft Tissues: A fluid collection measuring approximately 3.6 × 2.3 cm with an enhancing irregular lining is seen in the popliteal fossa. Another partially defined fluid collection with an enhancing wall is noted along the medial aspect of the knee, measuring approximately 4.3 × 2.6 cm. Adjacent lytic subchondral changes involving the proximal posterior tibia, corresponding to a cortical defect noted on prior radiograph, appear to communicate with the popliteal collection?raising suspicion for septic arthritis with associated osteomyelitis. MRI with contrast is recommended for further evaluation. IMPRESSION: 1. Mild joint effusion with synovial enhancement. Popliteal and medial periarticular fluid collections with enhancing silverman, suspicious for septic arthritis with possible associated osteomyelitis of the proximal tibia. Recommend MRI with contrast for further assessment (better delineated on CT). 2. Advanced osteoarthritic changes of the left knee. Unchanged. 3. Multiple intra-articular dense loose bodies. Unchanged. 4. CT showed more details compared to prior recent X-ray of the left knee. Electronically signed by Hiram Gaines 04-12-2025 04:14 AM Code Status & VTE Plan VTE Prophylaxis Plan VTE Prophylaxis will be ordered: Yes PG Care Time/CCT Total # of Minutes Spent Total Time Spent with Patient: Total time spent is greater than 50% in coordination of care (as documented) at patient's floor/unit and/or counseling patient: Coding Level of Care Code 97233 INT INP/OBS CARE MIN Diagnoses Trauma T14.90XA Accidental fall from ladder W11.XXXA Left knee injury S89.92XA Low back pain M54.50 Hypertension I10 CAD (coronary artery disease) I25.10
--- NOTE | 2025-04-12 06:52 | Electrocardiogram Report ---
Test Reason : Blood Pressure : */* mmHG Vent. Rate : 86 BPM Atrial Rate : 86 BPM P-R Int : 192 ms QRS Dur : 108 ms QT Int : 370 ms P-R-T Axes : 53 73 30 degrees QTcB Int : 442 ms Normal sinus rhythm Possible Left atrial enlargement Borderline ECG When compared with ECG of 21-Jan-2024 08:20, T wave inversion no longer evident in Inferior leads T wave inversion no longer evident in Lateral leads Confirmed by Hemanth Mckenzie ([id number]) on 04/12/2025 6:51:44 AM Referred By: REFERRED SELF Confirmed By: Hemanth Mckenzie
[2025-04-12] MEDS ORDERED: GLUCAGON FOR INJ 1 MG VIAL SQ PRN (08:55)
[2025-04-12] MEDS ORDERED: ALBUT/IPRATROP 3MG/0.5MG NEB 3 ML VIAL INH PRN (08:55)
[2025-04-12] MEDS ORDERED: CARBOHYDRATES FOR HYPOGLYCEMIA PO PRN (08:55)
[2025-04-12] MEDS ORDERED: POLYETHYLENE (MIRALAX) 17 GM PACK PO PRN (08:55)
[2025-04-12] MEDS ORDERED: DEXTROSE 50% 50 ML SYRINGE IV PRN (08:55)
[2025-04-12] MEDS ORDERED: GLUCOSE 40% GEL 15 GM TUBE PO PRN (08:55)
[2025-04-12] MEDS ORDERED: GLUCOSE 10 TAB/TUBE PO PRN (08:55)
[2025-04-12] MEDS ORDERED: ALBUTEROL HFA 8 GM INHALER INH PRN (08:55)
[2025-04-12] MEDS ORDERED: ONDANSETRON INJ 2 MG/ML 2 ML VIAL IV PRN (08:55)
[2025-04-12] MEDS: DOCUSATE SODIUM/SENNA 50/8.6MG TAB PO SCH (09:11)
[2025-04-12] MEDS: LACTATED RINGER'S 1,000 ML IV SCH (09:15)
[2025-04-12] MEDS: CYCLOBENZAPRINE HCL 5 MG TAB PO PRN (09:24)
[2025-04-12] MEDS: ATORVASTATIN 40 MG TAB PO SCH (09:25)
[2025-04-12] MEDS: LEVOTHYROXINE SODIUM 75 MCG TABLET PO SCH (09:25)
[2025-04-12] MEDS: METOPROLOL SUCC 25MG EXT REL TAB PO SCH (09:25)
[2025-04-12] MEDS: CLOPIDOGREL BISULFATE 75 MG TAB PO SCH (09:26)
[2025-04-12] MEDS: ASPIRIN 81 MG ECTAB PO SCH (09:26)
[2025-04-12] MEDS: ENOXAPARIN INJ 40 MG/0.4 ML SYR SQ SCH (09:27)
--- NOTE | 2025-04-12 09:40 | Hospitalist Progress Note ---
Date of Service April 12, 2025 Assessment & Plan (1) Trauma: (2) Accidental fall from ladder: (3) Left knee injury: (4) Low back pain: (5) Hypertension: (6) CAD (coronary artery disease): Plan 70yo male with history of CAD, DM, HTN, Gout presenting after a fall from ladder - appx 14 feet. Paitent with injury to left knee. As above, CT read as possible septic arthritis. Unclear if these findings are trauma related vs chronic? #Fall | trauma | | ambulatory dysfunction While patient does endorse head strike; no LOC C-spine cleared Head CT, cervical spine CT, and lumbar spine CT without acute findings or fractures Pain control with Tylenol, Tramadol and Morphine PRN Note: Patient still requiring IV morphine 4 mg q4h on 04/12 Flexeril PRN PT/OT evaluations to be ordered after ortho eval Orthopedics consult appreciated Underwent left knee joint aspiration on 04/12 Synovial fluids analysis pending WBAT on LLE #Left knee pain / swelling Leukocytosis at 16 on arrival; afebrile Findings on CT as above raise concern for possible septic arthritis Patient reports being told that he has an infection in this knee previously, was unclear on details ESR elevated at 29, CRP elevated at 8.51 Left knee MRI with contrast ordered, pending Synovial fluid analysis (as above) #CAD Stable; continue ASA, Atorvastatin, Plavix, Metoprolol #Diabetes Lantus 25u BID ISS #Hypothyroidism Continue Synthroid Disposition: Continued stay on MedSurg telemetry in the setting of pain control/ambulatory dysfunction Admission and Anticipated Discharge Date Admission Date: April 12, 2025 Supervising Physician Co-Signing Physician Notes The patient was not seen by me. The chart was reviewed. I verified all gallegos points and agree with Max Rubio PA-C with the following exceptions and/or additions: None Subjective Mr. Tatum is lying in bed in no acute distress at this time. Family at bedside. Patient reports that the pain in his left knee is a 5 out of 10 at present, but a 10 out of 10 at worst. While he is having constant pain in the left knee, he is also having pain in the left lower back extending down to his foot, which he attributes to his "sciatica". Worse with bearing weight. Patient reports he gets injections in his back every 6 months for history of lumbar radiculopathy in the left leg. He also reports he has "distal myopathy" and has had deficits in his left lower and upper extremities for an extended period of time. 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 Patient does report he hit his head when he fell, and is currently on blood thinners (Plavix and aspirin) which he takes for history of heart stents. Patient does not ambulate with a walker or cane at baseline. No supplemental oxygen at baseline or CPAP at night. He reports a history of prior C5 neck injury in 2003. ROS: Patient endorses left knee pain, and pain extending from the left lower back down into the foot. Patient denies numbness or tingling going down the left leg, fevers, lightheadedness, headaches, changes in vision, chest pain, SOB, cough, abdominal pain, N/V/D, or changes in urinary or bowel habits. Review of Systems Review of Systems: See HPI above Physical Exam Physical Exam: All labs and imaging reports reviewed. Physical Exam: General: - Alert: Yes - Oriented: Yes - GCS 15: Yes HEENT: - No pain/tenderness. - No lacerations/abrasions - No numbness/tingling - PERLAA. Normal Visual Acuity. N o visual field cuts. No nystagmus. No contact lenses. Normal hearing. No relative afferent pupillary defect. No facial asymmetry. Normal palatal elevation, uvula midline. Midline tongue protrusion. - Mucous membranes moist. Neck: - Midline Tenderness: No - Patient demonstrates ability to rotate neck bilaterally without pain - Shoulder shrug with 5/5 strengt h bilaterally. - Cleared C-Spine: Yes Thorax: - Pain/Tenderness: None - Lacerations/Abrasions: None - Swelling/Ecchymosis: None - Air/Bony Crepitus: None Cardiopulmonary: - Regular Rate and Rhythm. No mur murs, rubs or gallops. - Breath sounds CTAB. No wheezes, rales, or rhonchi. - Symmetrical Chest Rise Abdomen - Pain/Tenderness: None - Lacerations/Abrasions: None - No abdominal distension - Abdominal rigidity/guarding: No ne - Bowel Sounds: Present, normal - Pelvis stable Back/Spine - Upper and lower spine NTP - Lacerations/Abrasions: None - Swelling/Ecchymosis: None - Pain/Tenderness: None - Step-offs: None Extremities: - RUE: No deformity. No laceratio ns/abrasions. No swelling/ecchymosis. No pain/tenderness. Full active and passive range of motion. Core Cleaner strength, elbow flexion/extension, shoulder flexion/extension/abduction/adduction/external rotation/internal rotation intact with 5/5 strength. Sensation intact to soft touch without deficit. Radial pulse intact, cap refill in the thumb <2 seconds. - LUE: No deformity. No laceratio ns/abrasions. No swelling/ecchymosis. No pain/tenderness. Full active and passive range of motion. Core Cleaner strength, elbow flexion/extension, shoulder flexion/extension/abduction/adduction/external rotation/internal rotation intact with 5/5 strength. Sensation intact to soft touch without deficit. Radial pulse intact, cap refill in the thumb <2 seconds. - LLE: No deformity. No laceratio ns/abrasions. Left knee appears swollen, and is tender to palpation. Diminished active ROM of the left knee; patient demonstrates ability to flex the knee 30 degrees before eliciting pain. Left ankle dorsiflexion/plantarflexion with diminished strength at 3/5 when compared to the right. Patient reports that sensation is intact and symmetric in the lower extremities bilaterally assessed via light touch at the feet, ankles, and knees bilaterally. PT pulse intact to palpation. Patient demonstrates ability to wiggle toes bilaterally. Cap refill in the hallux <2 seconds. - RLE: No deformity. No laceratio ns/abrasions. No swelling/ecchymosis. No pain/tenderness. Full active and passive range of motion. Knee flexion/extension, ankle dorsiflexion/plantarflexion with 5/5 strength. Sensation intact to soft touch without deficit. Patient demonstrates ability wiggle toes bilaterally. PT pulse intact to palpation. Cap refill in the hallux <2 seconds. Mental status Adequate for Full Exam: Yes C-Spine Cleared (Radiologically AND Clinically): Yes Results & Data Results & Data Vital Signs (Past 12 Hours) Vital Signs Temp Pulse Pulse Resp BP BP Pulse Ox 04/12/25 09:18 80 04/12/25 08:56 36.6 C 75 18 149/84 H 95 04/12/25 08:00 78 16 153/82 H 93 04/12/25 07:00 75 16 146/87 H 94 04/12/25 06:16 73 04/12/25 06:00 72 20 149/83 H 95 04/12/25 05:00 73 22 144/80 H 94 04/12/25 04:00 74 22 134/88 96 04/12/25 03:00 73 20 164/93 H 94 04/12/25 02:34 81 04/12/25 02:00 81 22 167/89 H 93 04/12/25 01:00 84 20 163/99 H 95 04/12/25 00:00 82 24 165/99 H 96 04/11/25 23:09 87 20 161/100 H 95 04/11/25 22:47 95 04/11/25 22:37 83 04/11/25 22:32 92 04/11/25 22:32 37 C 81 20 184/115 H 92 04/11/25 22:32 37 C 81 20 189/115 H 92 04/11/25 22:32 37 C 81 20 189/115 H 92 O2 Del Method O2 Flow Rate 04/12/25 09:18 04/12/25 08:56 Room Air 04/12/25 08:00 Nasal Cannula 2 04/12/25 07:00 Nasal Cannula 2 04/12/25 06:16 04/12/25 06:00 Nasal Cannula 2 04/12/25 05:00 Nasal Cannula 2 04/12/25 04:00 Nasal Cannula 2 04/12/25 03:00 Nasal Cannula 2 04/12/25 02:34 04/12/25 02:00 Room Air 04/12/25 01:00 Nasal Cannula 2 04/12/25 00:00 Nasal Cannula 2 04/11/25 23:09 Nasal Cannula 2 04/11/25 22:47 Nasal Cannula 2 04/11/25 22:37 04/11/25 22:32 Room Air 04/11/25 22:32 Room Air 04/11/25 22:32 Room Air 04/11/25 22:32 Room Air 0 PG Care Time/CCT Total # of Minutes Spent Total Time Spent with Patient: Total time spent is greater than 50% in coordination of care (as documented) at patient's floor/unit and/or counseling patient: Coding [place] [address] SUB INP/OBS CARE 235MIN Patient Type Established Medical Decision Making Moderate Complexity Diagnoses Trauma T14.90XA Accidental fall from ladder W11.XXXA Left knee injury S89.92XA Low back pain M54.50 Hypertension I10 CAD (coronary artery disease) I25.10
[2025-04-12] MEDS: LANTUS PER UNIT CHARGE SQ SCH (09:42)
[2025-04-12] MEDS: INSULIN ASPART PER UNIT CHARGE SC SCH (09:42)
[2025-04-12] MEDS: FLUTICASONE/VILANTEROL 200/25MCG 14 PUFFS/INHALER INH SCH (09:46)
[2025-04-12] MEDS: FLUTICASONE PROPIONATE NA SPR 16 GM BTL SCH (09:46)
[2025-04-12] MEDS: MoRPHine SULFATE 4 MG/ML 1 ML CARP\\VIAL IV PRN (11:10)
--- NOTE | 2025-04-12 11:20 | Orthopedic Consultation ---
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 lipping, subchondral sclerosis, and pseudocystic changes of the opposing articular surfaces. Mild joint effusion with synovial enhancement measuring up to 4 mm in maximal thickness is present. Multiple intra-articular dense loose bodies are identified, predominantly within the suprapatellar pouch (better delineated on CT). Soft Tissues: A fluid collection measuring approximately 3.6 × 2.3 cm with an enhancing irregular lining is seen in the popliteal fossa. Another partially defined fluid collection with an enhancing wall is noted along the medial aspect of the knee, measuring approximately 4.3 × 2.6 cm. Adjacent lytic subchondral changes involving the proximal posterior tibia, corresponding to a cortical defect noted on prior radiograph, appear to communicate with the popliteal collection?raising suspicion for septic arthritis with associated osteomyelitis. MRI with contrast is recommended for further evaluation. IMPRESSION: 1. Mild joint effusion with synovial enhancement. Popliteal and medial periarticular fluid collections with enhancing silverman, suspicious for septic arthritis with possible associated osteomyelitis of the proximal tibia. Recommend MRI with contrast for further assessment (better delineated on CT). 2. Advanced osteoarthritic changes of the left knee. Unchanged. 3. Multiple intra-articular dense loose bodies. Unchanged. 4. CT showed more details compared to prior recent X-ray of the left knee. Electronically signed by Hiram Gaines 04-12-2025 04:14 AM XR ankle RT min 3V routine CLINICAL HISTORY: ankle pain COMPARISON: None FINDINGS: No fractures or subluxations are visualized. There is no conventional radiographic evidence of a joint effusion. There are Achilles insertional calcifications. There are small corticated ossicles adjacent to the medial malleolus and anterior aspect of the distal tibia. These are felt to be chronic. There is no significant joint space narrowing. IMPRESSION: 1. No acute fractures or dislocations 2. Small corticated ossicles which are felt to be old. LEFT ANKLE 3 VIEWS CLINICAL HISTORY: Left ankle pain. FINDINGS: 3 views of the left ankle are obtained. No prior studies are available for comparison at the time of dictation. The skeletal structures are osteopenic. No fracture is seen. The ankle mortise is maintained. There is no joint effusion. The overlying soft tissues are within normal limits. IMPRESSION: No acute bony abnormality is identified.
--- NOTE | 2025-04-12 11:44 | XRay Report ---
LEFT ANKLE 3 VIEWS CLINICAL HISTORY: Left ankle pain. FINDINGS: 3 views of the left ankle are obtained. No prior studies are available for comparison at th e time of dictation. The skeletal structures are osteopenic. No fracture is seen. The ankle mortise i s maintained. There is no joint effusion. The overlying soft tissues are within normal limits. IMPRESSION: No acute bony abnormality is identified. Electronically signed by: Elie Ceron M.D. 04/12/2025 11:42 AM
--- NOTE | 2025-04-12 11:48 | XRay Report ---
XR ankle RT min 3V routine CLINICAL HISTORY: ankle pain COMPARISON: None FINDINGS: No fractures or subluxations are visualized. There is no conventional radiographic evidenc e of a joint effusion. There are Achilles insertional calcifications. There are small corticated ossi cles adjacent to the medial malleolus and anterior aspect of the distal tibia. These are felt to be c hronic. There is no significant joint space narrowing. IMPRESSION: 1. No acute fractures or dislocations 2. Small corticated ossicles which are felt to be old. ACT 112: Negative or not required by law. Electronically signed by: Say Clayton M.D. 04/12/2025 11:46 AM
--- NOTE | 2025-04-12 14:51 | Procedure Note ---
Procedure Note Date of Service April 12, 2025 Note Procedure note: Patient was placed supine on his bed with a bump placed under his left knee. A timeout was performed and the patient verbalizes that we will proceed with a left knee joint aspiration and possible corticosteroid injection for his left knee effusion. Skin marker was used to darling the appropriate extremity. Using the cap of a needle the left superolateral pouch was marked. Darling site was cleansed with Betadine swab, anesthetized with ethyl chloride spray and wiped clean with an alcohol swab 4 x 4. 5 mL of 1% lidocaine solution was used for anesthetic purposes of the skin and joint. None of this product was wasted. Upon removal of the needle there is no bleeding. Darling site was then draped in a sterile fashion. The area was then again cleansed with alcohol swab for 4, wiped with sterile swab and wiped clean with another 4 x 4 soaked in alcohol. An 18-gauge needle connected to a 30 cc syringe was passed into the superolateral pouch and 27 mL yellow-tinged bloody fluid was easily extracted. I then disconnected the syringe containing the synovial fluid and attached to a syringe containing 7 mL of 0.5% ropivacaine solution and 4 mg of dexamethasone solution and injected free-flowing into the joint without any resistance. None of this product was wasted. Upon removal of the needle there was minimal bleeding that was easily controlled with pressure. I then again cleansed the site with an alcohol soaked 4 x 4, wiped to dry with a sterile 4 x 4 and covered with a Band-Aid. I then applied an Santiago bandage for compressive purposes. Patient tolerated procedure very well. The patient's nurse served as a witness for this procedure. Fluid was sent for cell count with differential, Gram stain with aerobic and anaerobic cultures, crystal analysis & Lyme analysis. Coding
[2025-04-12 14:58] LABS: Hematocrit (blood only) 46.9 % (42.0-52.0); Hemoglobin 15.4 g/dl (14.0-18.0); Mean Corpuscular Hemoglobin 29.1 pg (25.0-34.0); Mean Corpuscular Volume 88.7 fL (80.0-100.0); Platelet Count 193 K/uL (130-400); RDW Standard Deviation 43.9 fL (36.4-46.3); Red Blood Count 5.29 M/uL (4.70-6.10); White Blood Count 10.73 K/ul (4.8-10.8)
[2025-04-12 15:49] LABS: Color Synovial Fluid Amber; Mononuclear WBC Synovial 2.5 %; Polynuclear WBC Synovial 97.5 %; RBC Synovial Fluid Auto 34000 /uL; Source Synovial Fluid Left Knee; WBC Synovial Fluid Auto 58180 /ul (0-200)
[2025-04-12] MEDS: DOXAZOSIN MESYLATE 1 MG TAB PO SCH (20:19)
[2025-04-12] MEDS: GADOBUTROL 65ML VIAL IV ONE (20:47)
--- NOTE | 2025-04-12 22:12 | Magnetic Resonance Report ---
Exam(s): MRI LEFT KNEE W/WO Contrast IV Amt: 11ml gadavist EXAM: MR Left Lower Extremity Without and With Intravenous Contrast, Knee CLINICAL HISTORY: Reason for exam: Septic arthritis / osteomyelitis r/o. OTHER: Other Notes: left knee pain ostemyelitis, septic arthritis fell off a ladder yesterday fractured tibia 11ml gadavist injected, no adverse events TECHNIQUE: Multiplanar magnetic resonance images of the left knee without and with intravenous contrast. CONTRAST: Patient received 11ml gadavist of IV contrast COMPARISON: Left knee radiographs, 04/11/2025 FINDINGS: PATELLOFEMORAL COMPARTMENT There is osteoarthritis of the patellofemoral joint with marginal osteophyte formation. There is no high-grade articular cartilage loss. Retinacular structures are intact. Quadriceps and patellar tendons are intact. There is edema within the vastus musculature. Multiple ossified bodies are in the suprapatellar joint space measuring up to 2.5 cm. MEDIAL COMPARTMENT There is advanced osteoarthritis of the medial femorotibial joint with marginal osteophyte formation, extensive full-thickness tibial chondral loss, and moderate grade femoral chondral loss. There is severe multi-directional tearing and maceration of the medial meniscus, including large radial posterior horn tear, with peripheral extrusion of the meniscus body. Complex structure along the medial gutter of the knee measuring 4.2 x 3.7 x 1.3 cm which is homogeneously T1 hypointense, heterogeneously T2 hyperintense, and which is associated with an erosion in the medial tibial cortex. There is a complex lesion with similar signal characteristics posterior to the medial tibia, associated with extra- articular osseous erosion, and measuring 4.6 x 3.3 x 3.7 cm. These lesions demonstrate signal characteristics and osseous erosive changes suggestive of gouty tophi. There is trace popliteal cyst. LATERAL COMPARTMENT There is advanced osteoarthritis of the lateral femorotibial joint with marginal osteophyte formation and extensive full-thickness tibial chondral loss and moderate and high-grade femoral chondral loss. There is multi-directional tearing and maceration of the lateral meniscus with peripheral extrusion of the meniscus body. Iliotibial band, fibular collateral ligament, biceps femoris tendon, and popliteus tendon are intact. There is edema within the popliteus muscle. INTERCONDYLAR COMPARTMENT Anterior cruciate ligament is not visualized and is likely chronically torn. An associated finding of lateral translation of the tibia with respect to the femur is noted. There are ganglion cysts versus intra- articular tophi in the tibia near the ACL attachment site. Posterior cruciate ligament appears intact. ADDITIONAL FINDINGS No acute fracture is visualized. There is bone marrow edema within the proximal tibia with corresponding marrow enhancement. There is a large joint effusion with thick synovial enhancement. There is soft tissue enhancement surrounding the knee. IMPRESSION: Background of advanced tricompartment osteoarthritis, as detailed above. Multi-directional degenerative-type tearing and maceration of the medial and lateral menisci with peripheral extrusion of the meniscus bodies. Chronic ACL tear. 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 Large presumed tophi along the medial and posterior margins of the medial tibia causing extra- articular erosions in the bone. Large joint effusion with severe synovitis. This can be seen with gout. Multiple intra-articular bodies. Bone marrow edema in the proximal tibia. This could be reactive to the presumed gouty tophi eroding into the bone. Bone contusion in the setting of recent trauma is a differential consideration. There is some overlap in appearance between septic joint and gout. Recommend correlation with joint fluid analysis for definitive assessment. Edema within the vastus musculature and popliteus muscle, reactive to the articular process versus muscle strain in the setting of recent trauma. Electronically signed by: Antoine Hanley M.D. 04/12/25 22:11 PM
[2025-04-13 06:38] LABS: Hematocrit (blood only) 45.4 % (42.0-52.0); Hemoglobin 15.0 g/dl (14.0-18.0); Mean Corpuscular Hemoglobin 29.1 pg (25.0-34.0); Mean Corpuscular Volume 88.2 fL (80.0-100.0); Platelet Count 200 K/uL (130-400); RDW Standard Deviation 43.1 fL (36.4-46.3); Red Blood Count 5.15 M/uL (4.70-6.10); White Blood Count 12.18 K/ul (4.8-10.8)
[2025-04-13 06:58] LABS: Anion Gap 7.0 (3-11); Blood Urea Nitrogen 20.0 mg/dl (6-23); Calcium 8.8 mg/dl (8.6-10.3); Carbon Dioxide 27.0 mmol/L (21-32); Chloride 101.0 mmol/L (98-107); Creatinine Clr Calc Pharmacy 98.8 ml/min; Glucose 131.0 mg/dl (70-99(Fasting)); Potassium 4.0 mmol/L (3.5-5.1); Sodium 135.0 mmol/L (136-145)
--- NOTE | 2025-04-13 08:19 | Hospitalist Progress Note ---
Date of Service April 13, 2025 Assessment & Plan (1) Trauma: (2) Accidental fall from ladder: (3) Left knee injury: (4) Low back pain: (5) Hypertension: (6) CAD (coronary artery disease): Plan 70yo male with history of CAD, DM, HTN, Gout presenting after a fall from ladder - appx 14 feet. Paitent with injury to left knee. As above, CT read as possible septic arthritis. Unclear if these findings are trauma related vs chronic? #Fall | trauma | ambulatory dysfunction While patient does endorse head strike; no LOC C-spine cleared Head CT, cervical spine CT, and lumbar spine CT without acute findings or fractures Pain control with Tylenol, Tramadol and Morphine PRN Note: Patient still requiring IV morphine 4 mg q4h on 04/12 Flexeril PRN PT/OT evaluations appreciated WBAT on LLE #Left knee pain, swelling | h/o pseudogout Patient reports being told that he has an infection in this knee previously, was unclear on details on admission H/o synvisc injections in the L knee for severe osteoarthritis; last injection >1y ago WBC trend: 16 -> 10 -> 12 CRP trend: 8.51 -> 18.[address] as above raise concern for possible septic arthritis DDx includes gout + pseudogout 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 pseudogout; however, synovial crystal analysis resulted without crystals As patient reports significant improvement in his left knee pain/symptoms on 04/13, a previously established diagnosis of pseudogout, and no fevers overnight, will defer empiric antibiotics at this time but touch base with orthopedics to see if this warrants additional I&D or workup #CAD Stable; continue ASA, Atorvastatin, Plavix, Metoprolol #Diabetes Lantus 25u BID ISS #Hypothyroidism Continue Synthroid Disposition: Continued stay on MedSurg telemetry in the setting of pain control/ambulatory dysfunction Admission and Anticipated Discharge Date Admission Date: April 12, 2025 Supervising Physician Co-Signing Physician Notes I did not see or examine the patient. I verified all gallegos points and agree with Max Rubio PA-C with the following exceptions and/or additions: None Subjective Mr. Tatum is happy to report that his left knee pain is "a lot better compared to yesterday" after it was drained. He rates the pain a 3 out of 10 at present after working with occupational therapy to get up out of bed, whereas yesterday it was around a 9 out of 10 while laying in bed. Patient still having significant pain whenever he attempts to bear weight on the left leg. He was able to ambulate with a walker, but did exhibit difficulty. Patient reports that his last intra-articular steroid injection was over a year ago prior to coming to the hospital. He does report that he has a established history of pseudogout, which was confirmed by crystal analysis in the past. In regard to NSAID use, he was told to "stay away" from NSAIDs due to his history of heart stents (currently on aspirin and Plavix). He also has a history of peptic ulcers, and reports he takes PPIs at home as needed. When asked if he has had prior infections in his left knee, he does report history of "black drainage" that was due to an anaerobic infection in the knee, he is unsure if this was due to something called "gangrene". For this reason, he has been told in the past that kidney can never have a knee replacement. ROS: Patient endorses left knee pain, and occasional IT band pain around the left lateral thigh/hip. Patient denies fever, chills, night sweats, SOB, cough, chest pain, pleuritic CP, abdominal pain, N/C/D, saddle anesthesia, or numbness or tingling going down the left leg. Review of Systems Review of Systems: See HPI above Physical Exam Physical Exam: General: no acute distress; non-toxic appearing; cooperative; SpO2 93% on RA HEENT: normocephalic, atraumatic; PERRLA; vision and hearing intact Neck: supple; trachea midline Skin: warm, dry without signs of tenting; no cyanosis; no rashes, bruising, lesions, or erythema noted CV: chest wall NTP; RRR; S1/S2 normal; no murmurs/rubs/gallops; pulses intact and symmetric at radial, DP, and PT Lungs: no acute respiratory distress; symmetrical chest wall expansion; clear breath sounds across all lung guadalupe w/o adventitious sounds; no wheezing ABD: Soft, NTP; BS present; no rebound/guarding; no distention MSK: no tics or fasciculations; no edema noted in the LEs b/l, nonerythematous; 3/5 plantar/dorsiflexion in the L ankle; 5/5 plantar/dorsiflexion in the R ankle Left knee: Mildly TTP; left IT band is tense, mildly TTP Neuro: A&Ox3; normal mood and affect; fluent speech; sensation intact and symmetric in the LEs b/l Results & Data Results & Data Vital Signs (Past 12 Hours) Vital Signs Temp Pulse Pulse Resp BP Pulse Ox O2 Del Method 04/13/25 07:34 76 04/13/25 07:00 36.4 C 71 16 124/74 93 Room Air 04/13/25 03:45 36.5 C 75 18 125/72 93 Nasal Cannula 04/12/25 22:43 36.6 C 86 18 109/68 95 Nasal Cannula 04/12/25 22:07 83 04/12/25 20:12 94 Nasal Cannula O2 Flow Rate 04/13/25 07:34 04/13/25 07:00 04/13/25 03:45 2 04/12/25 22:43 2 04/12/25 22:07 04/12/25 20:12 2 PG Care Time/CCT Total # of Minutes Spent Total Time Spent with Patient: Total time spent is greater than 50% in coordination of care (as documented) at patient's floor/unit and/or counseling patient: C[place] [address] SUB INP/OBS CARE 3/50MIN Patient Type Established Medical Decision Making High Complexity Diagnoses Trauma T14.90XA Accidental fall from ladder W11.XXXA Left knee injury S89.92XA Low back pain M54.50 Hypertension I10 CAD (coronary artery disease) I25.10
--- NOTE | 2025-04-13 09:51 | Orthopedic Progress Note ---
Date of Service April 13, 2025 Assessment & Plan (1) Left knee injury: Plan: MRI study Performed yesterday shows severe tricompartmental arthritis with deficiency of the medial and lateral menisci as well as ACL. There are multiple loose bodies noted as well as a subchondral cyst with questionable fracture of the posterior proximal tibia The aspirate shows presence of 58,000 white cells. CRP is elevated. White blood cell count is elevated. There is no presence of crystals in the synovial fluid. Gram stain: Many WBCs, no organisms C&S aerobic and anaerobic bacteria studies NO Growth to Date Ice with easy wrap Continue compression with Santiago bandages Patient can be weightbearing as tolerated on the left lower extremity. Findings are suspicious for septic arthritis of his left knee can also be seen in the setting trauma, No growth to date from Left knee aspirate. Will discuss findings with Dr. Winchester. Will continue to follow (2) Bilateral ankle pain: Plan: X-rays of his ankle were negative. He has improved range of motion and decreased pain today. (3) Lumbar spinal stenosis: Plan: Patient will follow-up with Dr. Roberts on an outpatient basis for his lower back pain Admission and Anticipated Discharge Date Admission Date: April 12, 2025 Supervising Physician Co-Signing Physician Notes I, Dr. Winchester, saw and examined the patient. I discussed the management with my PA. I reviewed my PAs note and agree with the documented findings and attest to completing the substantive portion (medical decision making)/ plan of care I developed. Subjective This 70-year-old male seen today for follow-up of left knee pain and swelling with aspiration as well as bilateral ankle pain after falling 14 feet from a ladder. Patient states that his left knee feels much better after having the fluid aspirated and the steroid injection yesterday. He states that his ankles are also feeling better. Patient states that he was able to get up with his walker and ambulate throughout the hallway with physical therapy this morning. States his pain is well-controlled with p.o. pain medication. He denies chest pain, shortness of breath, fever, chills, sweats, nausea, vomiting, diarrhea or numbness or tingling in either lower extremity. Review of Systems Review of Systems: All systems reviewed & are unremarkable except as noted in Subjective Physical Exam Physical Exam: Left knee: Moderate edema with 1+ effusion. Active knee range of motion is from 8 degrees of extension to 90 degrees of flexion. He has moderate tenderness to palpation proximal to the knee joint. He does have lateral joint line tenderness. There is no laxity with varus valgus stressing. AP drawer sign and Shobha test are negative. Patient is neurovascularly intact. Bilateral ankles: Patient experiences minimal tenderness to palpation over both medial malleoli. Forefoot and calf squeeze tests are negative. Anterior drawer testing appreciates no laxity. Patient is able to actively dorsi and plantarflex his foot and has no weakness with applied resistance. He continues to have a numb tingly sensation over the deep peroneal nerve on the dorsal surface of his great toe and also has a decreased sensation over the medial aspect of his great toe. Patient has no tenderness to palpation over his calcanei. There is no discoloration or swelling to the plantar surfaces of each feet. Peripheral pulses are 2+. Patient is neurovascularly intact in both lower extremities without visible deformity. Results & Data Vital Signs (Past 12 Hours) Vital Signs Temp Pulse Pulse Resp BP Pulse Ox O2 Del Method 04/13/25 07:34 76 04/13/25 07:00 36.4 C 71 16 124/74 93 Room Air 04/13/25 03:45 36.5 C 75 18 125/72 93 Nasal Cannula 04/12/25 22:43 36.6 C 86 18 109/68 95 Nasal Cannula 04/12/25 22:07 83 O2 Flow Rate 04/13/25 07:34 04/13/25 07:00 04/13/25 03:45 2 04/12/25 22:43 2 04/12/25 22:07 Diagnostic Findings Laboratory Results WBC 12.18 K/ul (4.8-10.8) H 04/13/25 06:12 RBC 5.15 M/uL (4.70-6.10) 04/13/25 06:12 Hgb 15.0 g/dl (14.0-18.0) 04/13/25 06:12 POC Hgb 17.7 g/dl (14.0-18.0) 04/11/25 22:42 Hct 45.4 % (42.0-52.0) 04/13/25 06:12 POC Hct 52 % (42-52) 04/11/25 22:42 MCV 88.2 fL (80.0-100.0) 04/13/25 06:12 MCH 29.1 pg (25.0-34.0) 04/13/25 06:12 MCHC 33.0 g/dL (32.0-36.0) 04/13/25 06:12 RDW Std Deviation 43.1 fL (36.4-46.3) 04/13/25 06:12 RDW Coeff of Sasha 13.2 % (11.5-14.5) 04/13/25 06:12 Plt Count 200 K/uL (130-400) 04/13/25 06:12 MPV 10.2 fL (9.4-12.4) 04/13/25 06:12 Immature Gran % (Auto) 0.8 % 04/11/25 22:35 Neut % (Auto) 78.5 % 04/11/25 22:35 Lymph % (Auto) 10.3 % 04/11/25 22:35 Shannon % (Auto) 8.6 % 04/11/25 22:35 Eos % (Auto) 1.4 % 04/11/25 22:35 Baso % (Auto) 0.4 % 04/11/25 22:35 Neut # (Auto) 12.60 K/uL (1.40-6.50) H 04/11/25 22:35 Lymph # (Auto) 1.65 K/uL (1.20-3.40) 04/11/25 22:35 Shannon # (Auto) 1.38 K/uL (0.11-0.59) H 04/11/25 22:35 Eos # (Auto) 0.23 K/uL (0.00-0.50) 04/11/25 22:35 Baso # (Auto) 0.06 K/uL (0.00-0.20) 04/11/25 22:35 Immature Gran # (Auto) 0.13 K/uL (0.01-0.20) 04/11/25 22:35 ESR 29 mm/hr (0-20) H 04/12/25 10:28 PT 10.9 Seconds (9.0-12.0) 04/11/25 22:35 INR 1.0 (0.9-1.1) 04/11/25 22:35 APTT 27 Seconds (21-31) 04/11/25 22:35 PTT Ratio 1.0 04/11/25 22:35 POC Sodium 137 mmol/L (135-144) 04/11/25 22:42 Sodium 135 mmol/L (136-145) L 04/13/25 06:12 POC Potassium 3.7 mmol/L (3.3-5.0) 04/11/25 22:42 Potassium 4.0 mmol/L (3.5-5.1) 04/13/25 06:12 POC Chloride 102 mmol/L (101-112) 04/11/25 22:42 Chloride 101 mmol/L (98-107) 04/13/25 06:12 Carbon Dioxide 27 mmol/L (21-32) 04/13/25 06:12 POC Total CO2 22 mmol/L (24-31) L 04/11/25 22:42 Anion Gap 7 (3-11) 04/13/25 06:12 POC Anion Gap 18.0 mmol/L (16-25) 04/11/25 22:42 POC BUN 20 mg/dl (7-18) H 04/11/25 22:42 BUN 20 mg/dl (6-23) 04/13/25 06:12 Creatinine 0.80 mg/dl (0.6-1.4) 04/13/25 06:12 POC Creatinine 0.8 mg/dl (0.6-1.3) 04/11/25 22:42 Est Cr Clr Drug Dosing 98.8 ml/min 04/13/25 06:12 eGFR 94.62 04/13/25 06:12 BUN/Creatinine Ratio 25.0 (10-20) H 04/13/25 06:12 Glucose 131 mg/dl (70-99(Fasting)) H 04/13/25 06:12 POC Glucose 123 mg/dl (70-99) H 04/13/25 08:14 POC Glucose (other) 148 mg/dl (70-99) H 04/11/25 22:42 Calcium 8.8 mg/dl (8.6-10.3) 04/13/25 06:12 POC Ioniz Calcium Iliana 1.16 mmol/l (1.12-1.32) 04/11/25 22:42 Total Bilirubin 0.9 mg/dl (0.2-1.0) 04/11/25 22:35 AST 25 U/L (13-39) 04/11/25 22:35 ALT 28 U/L (7-52) 04/11/25 22:35 Alkaline Phosphatase 98 U/L (34-104) 04/11/25 22:35 Troponin I High Sens 8.6 pg/ml (0-20) 04/11/25 22:35 C-Reactive Protein 18.53 mg/dl (0-0.5) H 04/13/25 06:12 Total Protein 7.1 gm/dl (6.0-8.3) 04/11/25 22:35 Albumin 3.7 gm/dl (3.4-5.0) 04/11/25:35 Globulin 3.4 gm/dl (2.5-4.0) 04/11/25 22:35 Albumin/Globulin Ratio 1.1 (0.9-2) 04/11/25 22:35 Lipase 15 U/L (11-82) 04/11/25 22:35 Urine Color Yellow 04/12/25 00:05 Urine Appearance Clear (Clear) 04/12/25 00:05 Urine pH 5.5 (4.5-7.5) 04/12/25 00:05 Ur Specific Lyndon 1.042 (1.000-1.030) H 04/12/25 00:05 Urine Protein Negative (Negative) 04/12/25 00:05 Urine Glucose (UA) 3+ (Negative) H 04/12/25 00:05 Urine Ketones Trace (Negative) H 04/12/25 00:05 Urine Blood Negative (Negative) 04/12/25 00:05 Urine Nitrite Negative (Negative) 04/12/25 00:05 Urine Bilirubin Negative (Negative) 04/12/25 00:05 Urine Urobilinogen Negative (Negative) 04/12/25 00:05 Ur Leukocyte Esterase Negative (Negative) 04/12/25 00:05 Urine Comment 04/12/25 00:05 Fluid Comment 04/12/25 Unknown Synovial Source Left Knee 04/12/25 Unknown Synovial Color Mahsa 04/12/25 Unknown Synovial Appearance Turbid 04/12/25 Unknown Synovial WBC (Auto) 46494 /ul (0-200) H 04/12/25 Unknown Synovial RBC (Auto) 71345 /uL 04/12/25 Unknown Synovial Polynuclear % 97.5 % 04/12/25 Unknown Synovial Mononuclear % 2.5 % 04/12/25 Unknown Synovial Crystals 04/12/25 Unknown Impressions Chest X-Ray 04/11/25 22:47 EXAM: XR chest 1V portable CLINICAL HISTORY: Trauma. TECHNIQUE: An X-ray image of the chest is obtained in AP projection. COMPARISON: X-ray dated 01/21/2024. FINDINGS: Pulmonary Parenchyma: Linear atelectatic bands in the left lower zone. Mild haziness over the left costophrenic angle is likely due to soft tissues/pleural thickening. No evidence of consolidation, collapse, or focal opacities. No pulmonary nodules are identified. No evidence of pleural effusion. Heart and Mediastinum: Heart size and shape are normal. No mediastinal widening or masses. No hilar or mediastinal lymphadenopathy. Aortic calcification. Bony Thorax: Slight overlapping of the lateral aspect of the right second rib. Degenerative changes are seen in the spine and right acromioclavicular and glenohumeral joints. Soft Tissues: Soft tissues overlying the chest wall are unremarkable. Sternal sutures are seen. Chest leads are noted. IMPRESSION: No evidence of consolidation or pleural effusion, stable. Slight overlapping of the lateral aspect of the right second rib. New. The possibility of fracture cannot be ruled out, new. Needs clinical correlation, and if required CT scan may be obtained. Electronically signed by Hiram Gaines 04-12-2025 02:04 AM Knee X-Ray 04/11/25 22:47 EXAM: XR knee LT 1 or 2V routine CLINICAL HISTORY: knee pain - fall off ladder. TECHNIQUE: X-ray images of the left knee were obtained in anteroposterior (AP) and lateral projections. COMPARISON: 08/26/2023 X-ray. FINDINGS: Bone structure: There are posterior cortical irregularities with possible cortical fractures on the posterior aspect of the tibial plateau (new). CT is required for better assessment. Joint spaces: Marked osteoarthritis is evident, characterized by joint space narrowing and marginal articular bone spurring. Suprapatellar joint effusion is present. Articular surfaces: The articular surfaces are smooth and intact. There are no signs of osteophyte formation or subchondral sclerosis. Patella: The patella is normal in position and alignment. There is no evidence of patellar dislocation or subluxation. Soft tissues: The periarticular soft tissues appear normal and unremarkable. No soft tissue swelling, calcifications, or foreign bodies are noted. Additional findings: Multifocal high-density structures are seen projecting over the suprapatellar aspect of the knee joint with a chondroid matrix, suggesting synovial chondromatosis. IMPRESSION: 1. There are posterior cortical irregularities with possible cortical fractures on the posterior aspect of the tibial plateau (new). CT is required for better assessment. 2. Marked osteoarthritis is evident, characterized by joint space narrowing and marginal articular bone spurring (chronic). 3. Suprapatellar joint effusion is present (chronic). 4. Multifocal high-density structures are seen projecting over the suprapatellar aspect of the knee joint with a chondroid matrix, suggesting synovial chondromatosis (chronic). 5. Periarticular soft tissue edema is mainly around the medial aspect of the knee joint (progressive). Disclaimer: A subtle bone abnormality or fracture may not be readily apparent on X-rays, thus clinical correlation and further imaging including follow-up CT, MRI, or follow-up X-rays are advised as needed. Electronically signed by Hiram Gaines 04-12-2025 01:47 AM Abdomen/Pelvis CT 04/11/25 22:50 Exam(s): CT ABDOMEN + PELVIS With Contrast IV Amt: 93 cc opti 320 EXAM: CT Abdomen and Pelvis With Intravenous Contrast CLINICAL HISTORY: Reason for exam: Trauma. TECHNIQUE: Axial computed tomography images of the abdomen and pelvis with intravenous contrast. CTDI is 26.48 mGy and DLP is 1464.3 mGy-cm. Automated exposure control was utilized for the study. A dose lowering technique was utilized adhering to the principles of ALARA. CONTRAST: Patient received 93 cc opti 320 of IV contrast COMPARISON: 01/21/2024 FINDINGS: Lung bases: Unremarkable. No mass. No consolidation. ABDOMEN: Liver: Unremarkable. No mass. Gallbladder and bile ducts: Postop changes prior cholecystectomy. No ductal dilation. Pancreas: Unremarkable. No mass. No ductal dilation. Spleen: Unremarkable. No splenomegaly. Adrenals: Unremarkable. No mass. Kidneys and ureters: Simple left-sided parapelvic renal cysts. No follow-up of these simple cysts is necessary. No hydronephrosis. Stomach and bowel: Unremarkable. No obstruction. No mucosal thickening. PELVIS: Appendix: No findings to suggest acute appendicitis. Bladder: Mild distention of the urinary bladder. Reproductive: Unremarkable as visualized. ABDOMEN and PELVIS: Intraperitoneal space: Unremarkable. No free air. No significant fluid collection. Bones/joints: No acute fracture. No dislocation. Soft tissues: Unremarkable. Vasculature: Unremarkable. No abdominal aortic aneurysm. Lymph nodes: Unremarkable. No enlarged lymph nodes. IMPRESSION: No acute findings in the abdomen or pelvis. Electronically signed by: Paulie Reid MD 04/11/25 23:[address] 04/11/25 22:50 Exam(s): CT C SPINE EXAM: CT Cervical Spine Without Intravenous Contrast CLINICAL HISTORY: Reason for exam: Trauma. TECHNIQUE: Axial computed tomography images of the cervical spine without intravenous contrast. CTDI is 26.96 mGy and DLP is 596.88 mGy-cm. Automated exposure control was utilized for the study. A dose lowering technique was utilized adhering to the principles of ALARA. COMPARISON: No relevant prior studies available. FINDINGS: No fracture or subluxations are noted. The vertebral body heights and alignment are preserved. No prevertebral soft tissue swelling. Note is made of multilevel cervical spondylosis with varying degrees of central canal and foramina stenoses. IMPRESSION: 1. No cervical fractures. 2. Cervical spondylosis with varying degrees of central canal and foramina stenoses. Electronically signed by: Paulie Reid MD 04/11/25 23:[address] 04/11/25 22:50 Exam(s): CT CHEST With Contrast IV Amt: 93 cc opti 320 EXAM: CT Chest With Intravenous Contrast CLINICAL HISTORY: Reason for exam: Trauma. TECHNIQUE: Axial computed tomography images of the chest with intravenous contrast. CTDI is 28.14 mGy and DLP is 1091.74 mGy-cm. Automated exposure control was utilized for the study. A dose lowering technique was utilized adhering to the principles of ALARA. CONTRAST: Patient received 93 cc opti 320 of IV contrast COMPARISON: No relevant prior studies available. FINDINGS: Lungs: Unremarkable. No mass. No consolidation. Pleural space: Unremarkable. No significant effusion. No pneumothorax. Heart: Coronary artery calcifications. No cardiomegaly. No significant pericardial effusion. Bones/joints: Postop changes prior median sternotomy. No acute fracture. Soft tissues: Unremarkable. Vasculature: See above. Lymph nodes: Unremarkable. No enlarged lymph nodes. Gallbladder and bile ducts: Postop changes prior cholecystectomy. IMPRESSION: No acute findings in the chest. Electronically signed by: Paulie Reid MD 04/11/25 23:[address] 04/11/25 22:50 Exam(s): CT HEAD Without Contrast EXAM: CT Head Without Intravenous Contrast CLINICAL HISTORY: Reason for exam: trauma. TECHNIQUE: Axial computed tomography images of the head/brain without intravenous contrast. CTDI is 35.65 mGy and DLP is 624.41 mGy-cm. Automated exposure control was utilized for the study. A dose lowering technique was utilized adhering to the principles of ALARA. COMPARISON: No relevant prior studies available. FINDINGS: Brain: Unremarkable. No hemorrhage. No significant white matter disease. No edema. Ventricles: Unremarkable. No ventriculomegaly. Bones/joints: Unremarkable. No acute fracture. Soft tissues: Unremarkable. Sinuses: Unremarkable as visualized. No acute sinusitis. Mastoid air cells: Unremarkable as visualized. No mastoid effusion. IMPRESSION: Normal head/brain CT. Electronically signed by: Paulie Reid MD 04/11/25 23:[address] 04/11/25 22:50 Exam(s): CT L SPINE With Contrast IV Amt: 93 cc opti 320 EXAM: CT Lumbar Spine With Intravenous Contrast CLINICAL HISTORY: Reason for exam: Trauma - may reconstruct from abdomen- eval for fx. TECHNIQUE: Axial computed tomography images of the lumbar spine with intravenous contrast. CTDI is 26.48 mGy and DLP is 1464.3 mGy-cm. Automated exposure control was utilized for the study. A dose lowering technique was utilized adhering to the principles of ALARA. CONTRAST: Patient received 93 cc opti 320 of IV contrast COMPARISON: No relevant prior studies available. FINDINGS: Vertebrae: Unremarkable. No acute fracture. Discs/spinal canal/neural foramina: No acute findings. No spinal canal stenosis. Soft tissues: Unremarkable. IMPRESSION: Normal lumbar spine CT. Electronically signed by: Paulie Reid MD 04/11/25 23:59 PM Foot X-Ray 04/11/25 22:51 Exam(s): XR RIGHT FOOT, 3+ views EXAM: XR Right Foot Complete, 3 or More Views CLINICAL HISTORY: Reason for exam: fall from ladder. TECHNIQUE: Frontal, lateral and oblique views of the right foot. COMPARISON: No relevant prior studies available. FINDINGS: Bones/joints: Unremarkable. No acute fracture. No dislocation. Soft tissues: Unremarkable. No radiopaque foreign body. IMPRESSION: Normal right foot x-rays. Electronically signed by: Paulie Reid MD 04/12/25 00:[address] 04/12/25 01:57 EXAM: CT knee LT w con CLINICAL HISTORY: Eval tibia fracture. TECHNIQUE: Thin axial images of the left knee joint were obtained with contrast, along with coronal and sagittal reconstructions. 93 cc Optiray 320 was administered for post-contrast images. One of the following dose reduction techniques was utilized for this exam: automated exposure control, adjustment of the mA and/or kV according to patient size, and use of iterative reconstruction. COMPARISON: Reviewed prior X-ray dated 04/11/2025. FINDINGS: Bones and Joint Space: No bone fractures are identified. Advanced osteoarthritic changes of the left knee joint are noted, characterized by narrowing of the medial tibiofemoral compartment, marginal osteophytic lipping, subchondral sclerosis, and pseudocystic changes of the opposing articular surfaces. Mild joint effusion with synovial enhancement measuring up to 4 mm in maximal thickness is present. Multiple intra-articular dense loose bodies are identified, predominantly within the suprapatellar pouch (better delineated on CT). Soft Tissues: A fluid collection measuring approximately 3.6 × 2.3 cm with an enhancing irregular lining is seen in the popliteal fossa. Another partially defined fluid collection with an enhancing wall is noted along the medial aspect of the knee, measuring approximately 4.3 × 2.6 cm. Adjacent lytic subchondral changes involving the proximal posterior tibia, corresponding to a cortical defect noted on prior radiograph, appear to communicate with the popliteal collection?raising suspicion for septic arthritis with associated osteomyelitis. MRI with contrast is recommended for further evaluation. IMPRESSION: 1. Mild joint effusion with synovial enhancement. Popliteal and medial periarticular fluid collections with enhancing silverman, suspicious for septic arthritis with possible associated osteomyelitis of the proximal tibia. Recommend MRI with contrast for further assessment (better delineated on CT). 2. Advanced osteoarthritic changes of the left knee. Unchanged. 3. Multiple intra-articular dense loose bodies. Unchanged. 4. CT showed more details compared to prior recent X-ray of the left knee. Electronically signed by Hiram Gaines 04-12-2025 04:14 AM Ankle X-Ray 04/12/25 11:20 XR ankle RT min 3V routine CLINICAL HISTORY: ankle pain COMPARISON: None FINDINGS: No fractures or subluxations are visualized. There is no conventional radiographic evidence of a joint effusion. There are Achilles insertional calcifications. There are small corticated ossicles adjacent to the medial malleolus and anterior aspect of the distal tibia. These are felt to be chronic. There is no significant joint space narrowing. IMPRESSION: 1. No acute fractures or dislocations 2. Small corticated ossicles which are felt to be old. ACT 112: Negative or not required by law. Electronically signed by: Say Clayton M.D. 04/12/2025 11:46 AM Knee MRI 04/12/25 15:14 Exam(s): MRI LEFT KNEE W/WO Contrast IV Amt: 11ml gadavist EXAM: MR Left Lower Extremity Without and With Intravenous Contrast, Knee CLINICAL HISTORY: Reason for exam: Septic arthritis / osteomyelitis r/o. OTHER: Other Notes: left knee pain ostemyelitis, septic arthritis fell off a ladder yesterday fractured tibia 11ml gadavist injected, no adverse events TECHNIQUE: Multiplanar magnetic resonance images of the left knee without and with intravenous contrast. CONTRAST: Patient received 11ml gadavist of IV contrast COMPARISON: Left knee radiographs, 04/11/2025 FINDINGS: PATELLOFEMORAL COMPARTMENT There is osteoarthritis of the patellofemoral joint with marginal osteophyte formation. There is no high-grade articular cartilage loss. Retinacular structures are intact. Quadriceps and patellar tendons are intact. There is edema within the vastus musculature. Multiple ossified bodies are in the suprapatellar joint space measuring up to 2.5 cm. MEDIAL COMPARTMENT There is advanced osteoarthritis of the medial femorotibial joint with marginal osteophyte formation, extensive full-thickness tibial chondral loss, and moderate grade femoral chondral loss. There is severe multi-directional tearing and maceration of the medial meniscus, including large radial posterior horn tear, with peripheral extrusion of the meniscus body. Complex structure along the medial gutter of the knee measuring 4.2 x 3.7 x 1.3 cm which is homogeneously T1 hypointense, heterogeneously T2 hyperintense, and which is associated with an erosion in the medial tibial cortex. There is a complex lesion with similar signal characteristics posterior to the medial tibia, associated with extra- articular osseous erosion, and measuring 4.6 x 3.3 x 3.7 cm. These lesions demonstrate signal characteristics and osseous erosive changes suggestive of gouty tophi. There is trace popliteal cyst. LATERAL COMPARTMENT There is advanced osteoarthritis of the lateral femorotibial joint with marginal osteophyte formation and extensive full-thickness tibial chondral loss and moderate and high-grade femoral chondral loss. There is multi-directional tearing and maceration of the lateral meniscus with peripheral extrusion of the meniscus body. Iliotibial band, fibular collateral ligament, biceps femoris tendon, and popliteus tendon are intact. There is edema within the popliteus muscle. INTERCONDYLAR COMPARTMENT Anterior cruciate ligament is not visualized and is likely chronically torn. An associated finding of lateral translation of the tibia with respect to the femur is noted. There are ganglion cysts versus intra- articular tophi in the tibia near the ACL attachment site. Posterior cruciate ligament appears intact. ADDITIONAL FINDINGS No acute fracture is visualized. There is bone marrow edema within the proximal tibia with corresponding marrow enhancement. There is a large joint effusion with thick synovial enhancement. There is soft tissue enhancement surrounding the knee. IMPRESSION: Background of advanced tricompartment osteoarthritis, as detailed above. Multi-directional degenerative-type tearing and maceration of the medial and lateral menisci with peripheral extrusion of the meniscus bodies. Chronic ACL tear. 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 Large presumed tophi along the medial and posterior margins of the medial tibia causing extra- articular erosions in the bone. Large joint effusion with severe synovitis. This can be seen with gout. Multiple intra-articular bodies. Bone marrow edema in the proximal tibia. This could be reactive to the presumed gouty tophi eroding into the bone. Bone contusion in the setting of recent trauma is a differential consideration. There is some overlap in appearance between septic joint and gout. Recommend correlation with joint fluid analysis for definitive assessment. Edema within the vastus musculature and popliteus muscle, reactive to the articular process versus muscle strain in the setting of recent trauma. Electronically signed by: Antoine Hanley M.D. 04/12/25 22:11 PM
[2025-04-13] MEDS: ACETAMINOPHEN 325 MG TAB PO PRN (15:12)
[2025-04-14 10:26] LABS: Hematocrit (blood only) 47.1 % (42.0-52.0); Hemoglobin 16.1 g/dl (14.0-18.0); Immature Granulocytes # (auto) 0.07 K/uL (0.01-0.20); Immature Granulocytes % (auto) 0.7 %; Mean Corpuscular Hemoglobin 30.3 pg (25.0-34.0); Mean Corpuscular Volume 88.7 fL (80.0-100.0); Platelet Count 227 K/uL (130-400); RDW Standard Deviation 43.4 fL (36.4-46.3); Red Blood Count 5.31 M/uL (4.70-6.10); White Blood Count 9.72 K/ul (4.8-10.8)
[2025-04-14 10:39] LABS: Anion Gap 7.0 (3-11); Blood Urea Nitrogen 19.0 mg/dl (6-23); Calcium 8.7 mg/dl (8.6-10.3); Carbon Dioxide 26.0 mmol/L (21-32); Chloride 101.0 mmol/L (98-107); Creatinine Clr Calc Pharmacy 92.9 ml/min; Glucose 218.0 mg/dl (70-99(Fasting)); Potassium 3.9 mmol/L (3.5-5.1); Sodium 134.0 mmol/L (136-145)
[2025-04-14 11:16] VITALS: RESP 18
--- NOTE | 2025-04-14 11:17 | Orthopedic Progress Note ---
Date of Service April 14, 2025 Assessment & Plan (1) Left knee injury: Plan: MRI study Performed 04/13/2025 shows severe tricompartmental arthritis with deficiency of the medial and lateral menisci as well as ACL. There are multiple loose bodies noted as well as a subchondral cyst with questionable fracture of the posterior proximal tibia The aspirate shows presence of 58,000 white cells. CRP is elevated. White blood cell count is elevated. There is no presence of crystals in the synovial fluid. Gram stain: Many WBCs, no organisms C&S aerobic and anaerobic bacteria studies NO Growth to Date. 04/14/25 results currently pending. Ice with easy wrap Continue compression with Santiago bandages Patient can be weightbearing as tolerated on the left lower extremity. May use walker to assist with ambulation as needed. Will discuss findings with Dr. Winchester. Will continue to follow. Will follow culture results. If bacteria is present then will need surgical intervention. For now no plans for surgical intervention at this time. (2) Bilateral ankle pain: Plan: X-rays of his ankle were negative. He has improved range of motion and decreased pain today. Continue to advance activities as tolerated. (3) Lumbar spinal stenosis: Plan: Patient will follow-up with Dr. Roberts on an outpatient basis for his lower back pain Admission and Anticipated Discharge Date Admission Date: April 12, 2025 Supervising Physician Co-Signing Physician Notes I, Dr. Winchester, saw and examined the patient and agree with the above findings described in the note by my PA. I discussed the plan on of care I developed with my PA. Subjective Patient seen and evaluated today at bedside. He states that he today his knee pain improves. He is able to ambulate more in the hallway and also bend his knee more. He has been working on exercises at his bed. Each day he notices considerable improvement. He states his pain at a 3 out of 10 today. He has an Santiago bandage over the knee which helps with compression. He denies any severe pain. He denies any fevers or chills. He is ambulating with a walker. Physical Exam Musculoskeletal: Exam of his left lower extremity: Small to moderate effusion of the left knee. The left knee is nontender with palpation. No ecchymosis or erythema. Mild warmth is appreciated. Nontender with palpation over the medial or lateral joint lines. Nontender with patellar quadriceps tendon. Range of motion is 0 to 90 degrees today. He is able to independently straight leg raise and hold against resistance with no extensor lag. Calf is supple and nontender. Full ankle range of motion bilaterally without discomfort. No distal edema. Distal pulses are 1+. Sensation is normal throughout bilateral lower extremities. Results & Data Vital Signs (Past 12 Hours) Vital Signs Temp Pulse Pulse Resp BP Pulse Ox O2 Del Method 04/14/25 08:03 36.6 C 70 20 137/80 92 Room Air 04/14/25 07:11 68 04/14/25 02:58 36.5 C 74 18 146/77 H 94 Room Air Laboratory Results 04/12/25 Unknown Gram Stain - Final Knee,Left Aerobic and Anaerobic Culture - Preliminary No growth to date. 04/14/25 04/14/25 04/13/25 09:39 07:34 20:15 WBC 9.72 RBC 5.31 Hgb 16.1 Hct 47.1 MCV 88.7 MCH 30.3 MCHC 34.2 RDW Std Deviation 43.4 RDW Coeff of Sasha 13.3 Plt Count 227 MPV 10.3 Immature Gran % (Auto) 0.7 Neut % (Auto) 64.4 Lymph % (Auto) 22.0 Emmons % (Auto) 10.2 Eos % (Auto) 2.3 Baso % (Auto) 0.4 Neut # (Auto) 6.26 Lymph # (Auto) 2.14 Emmons # (Auto) 0.99 H Eos # (Auto) 0.22 Baso # (Auto) 0.04 Immature Gran # (Auto) 0.07 Sodium 134 L Potassium 3.9 Chloride 101 Carbon Dioxide 26 Anion Gap 7 BUN 19 Creatinine 0.85 Est Cr Clr Drug Dosing 92.9 eGFR 92.90 BUN/Creatinine Ratio 22.4 H Glucose 218 H POC Glucose 135 H 172 H Calcium 8.7 C-Reactive Protein 7.59 H 04/13/25 04/13/25 17:08 12:38 WBC RBC Hgb Hct MCV MCH MCHC RDW Std Deviation RDW Coeff of Sasha Plt Count MPV Immature Gran % (Auto) Neut % (Auto) Lymph % (Auto) Emmons % (Auto) Eos % (Auto) Baso % (Auto) Neut # (Auto) Lymph # (Auto) Emmons # (Auto) Eos # (Auto) Baso # (Auto) Immature Gran # (Auto) Sodium Potassium Chloride Carbon Dioxide Anion Gap BUN Creatinine Est Cr Clr Drug Dosing eGFR BUN/Creatinine Ratio Glucose POC Glucose 128 H 167 H Calcium C-Reactive Protein
--- NOTE | 2025-04-14 15:55 | Hospitalist Progress Note ---
Date of Service April 14, 2025 Assessment & Plan (1) Trauma: (2) Accidental fall from ladder: (3) Left knee injury: (4) Low back pain: (5) Hypertension: (6) CAD (coronary artery disease): Plan 70yo male with history of CAD, DM, HTN, Gout presenting after a fall from ladder - appx 14 feet. Paitent with injury to left knee. As above, CT read as possible septic arthritis. Unclear if these findings are trauma related vs chronic? #Fall | trauma | ambulatory dysfunction While patient does endorse head strike; no LOC C-spine cleared Head CT, cervical spine CT, and lumbar spine CT without acute findings or fractures Pain control with Tylenol, Tramadol and Morphine PRN Note: Patient has not required IV morphine on 04/14, and reports that the tramadol has been enough for pain control today Flexeril PRN PT/OT evaluations appreciated Will plan for home with home health (however, patient has requested outpatient physical therapy due to having dogs at home) WBAT on LLE #Left knee pain, swelling | h/o pseudogout H/o synvisc injections in the L knee for severe osteoarthritis; last injection >1y ago WBC trend: 16 -> 10 -> 12 -> 9.7 (WNL) CRP trend: 8.51 -> 18.53 -> 7.59 Orthopedics consult appreciated Underwent left knee joint aspiration + intra-articular steroid injection on 04/12 Abnormal synovial fluid analysis: Synovial fluids analysis revealed elevated WBC count at 58k Gram stain negative for organisms This could be consistent with gout v. 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 Admission and Anticipated Discharge Date Admission Date: April 12, 2025 Supervising Physician Co-Signing Physician Notes The patient was not seen by me. The chart was reviewed. Case discussed with LESLEY Moore. Agree with assessment and plan Subjective Mr. Tatum is in good spirits this afternoon. He reports that the tramadol has been "keeping the pain away". He has not required IV morphine in the past 24 hours. He did bear two thirds of his weight on his left leg today, which was better than yesterday. He was also able to ambulate twice around the nursing station in the hallways. He reports he feels like he stay his leg is getting better. He is also been sitting on the side of the bed doing the exercises that were taught to him by orthopedics (knee flexion and extension). He rates the pain as a 4 out of 10 at present after receiving tramadol. Overall, the patient feels like he would be comfortable going home in the next 1 - 2 days. ROS: Patient endorses intermittent left knee pain (with improvement). Patient denies fevers overnight, chills, night sweats, chest pain, SOB, cough, abdominal pain, or numbness or tingling going down the left leg. Review of Systems Review of Systems: See HPI above Physical Exam Physical Exam: General: no acute distress; pleasant affect; non-toxic appearing; cooperative; SpO2 94% on RA HEENT: normocephalic, atraumatic; PERRLA; vision and hearing intact Neck: supple; trachea midline Skin: warm, dry without signs of tenting; no cyanosis; no rashes, bruising, lesions, or erythema noted CV: chest wall NTP; RRR; S1/S2 normal; no murmurs/rubs/gallops; pulses intact and symmetric at radial, DP, and PT Lungs: no acute respiratory distress; symmetrical chest wall expansion; clear breath sounds across all lung guadalupe w/o adventitious sounds; no wheezing ABD: Soft, NTP; BS present; no rebound/guarding; no distention MSK: no tics or fasciculations; no edema noted in the LEs b/l, nonerythematous; 3/5 plantar/dorsiflexion in the L ankle; 5/5 plantar/dorsiflexion in the R ankle Left knee: NTP; bandaged; patient demonstrates ability to flex the knee 90 degrees after sitting up on the side of the bed, as well as extend it fully against resistance Neuro: A&Ox3; normal mood and affect; fluent speech; sensation intact and symmetric in the LEs b/l Gait: Patient demonstrates ability to stand independently at the side of the bed and take a couple steps; he does note that bearing weight on his left leg still elicits pain in the knee Results & Data Results & Data Vital Signs (Past 12 Hours) Vital Signs Temp Pulse Pulse Resp BP Pulse Ox O2 Del Method 04/14/25 15:23 36.5 C 64 18 126/77 94 Room Air 04/14/25 11:15 36.4 C L 66 18 142/79 H 92 Room Air 04/14/25 08:03 36.6 C 70 20 137/80 92 Room Air 04/14/25 07:11 68 PG Care Time/CCT Total # of Minutes Spent Total Time Spent with Patient: Total time spent is greater than 50% in coordination of care (as documented) at patient's floor/unit and/or counseling patient: Coding Level of Care Code 35120 SUB INP/OBS CARE 2/35MIN Diagnoses Trauma T14.90XA Accidental fall from ladder W11.XXXA Left knee injury S89.92XA Low back pain M54.50 Hypertension I10 CAD (coronary artery disease) I25.10
[2025-04-15 06:33] LABS: Hematocrit (blood only) 45.8 % (42.0-52.0); Hemoglobin 15.6 g/dl (14.0-18.0); Immature Granulocytes # (auto) 0.09 K/uL (0.01-0.20); Immature Granulocytes % (auto) 1.2 %; Mean Corpuscular Hemoglobin 30.3 pg (25.0-34.0); Mean Corpuscular Volume 88.9 fL (80.0-100.0); Platelet Count 219 K/uL (130-400); RDW Standard Deviation 43.5 fL (36.4-46.3); Red Blood Count 5.15 M/uL (4.70-6.10); White Blood Count 7.39 K/ul (4.8-10.8)
--- NOTE | 2025-04-15 09:30 | Orthopedic Progress Note ---
Date of Service April 15, 2025 Assessment & Plan (1) Left knee injury: Plan: The patient was educated regarding today's findings. Conservative care measures were discussed. The orthopedic plan for the moment is unchanged. MRI study Performed 04/13/2025 shows severe tricompartmental arthritis with deficiency of the medial and lateral menisci as well as ACL. There are multiple loose bodies noted as well as a subchondral cyst with questionable fracture of the posterior proximal tibia The aspirate shows presence of 58,000 white cells. CRP is elevated. White blood cell count is elevated. There is no presence of crystals in the synovial fluid. Gram stain: Many WBCs, no organisms C&S aerobic and anaerobic bacteria studies NO Growth to Date. 04/15/25 results currently pending. Ice with easy wrap Continue compression with Santiago bandages Patient can be weightbearing as tolerated on the left lower extremity. May use walker to assist with ambulation as needed. Will discuss findings with Dr. Winchester. Will continue to follow. Will follow culture results. If bacteria is present then will need surgical intervention. For now no plans for surgical intervention at this time. Admission and Anticipated Discharge Date Admission Date: April 12, 2025 Subjective This 70-year-old male is seen today in his room. He states his pain has significantly improved. He has been able to bear full weight on his left leg this morning, which was better than yesterday. He has been ambulatory. He denies any fevers or chills. He states he is amazed at how much is leg has improved over the last few days. Physical Exam Physical Exam: General: Well-developed, well-nourished, elderly male, in no acute distress. Sitting on his bed. Alert and oriented. Skin: Warm and dry with good turgor. No rashes. Mild intra-articular effusion of the left knee. There is no redness or warmth. No drainage. He has no significant discomfort with palpation in the peripatellar area, medial joint line, or popliteal fossa. He does complain of discomfort with palpation over his IT band laterally at the knee. This extends to approximately mid thigh. He has supple motion of his left hip, left knee, and left ankle. Full ankle plantarflexion and dorsiflexion. He has full extension of the knee. Flexion to greater than 90 degrees. He is able to set his quad and perform a straight leg raise. Neurologic: Gross sensation is intact across the left leg by soft touch. Peripheral pulses are 2+. Results & Data Vital Signs (Past 12 Hours) Vital Signs Temp Pulse Pulse Resp BP Pulse Ox O2 Del Method 04/15/25 08:24 36.4 C L 72 18 143/79 H 94 Room Air 04/15/25 05:29 57 L 04/15/25 02:47 36.6 C 70 18 129/78 96 Room Air 04/14/25 22:33 36.9 C 63 18 144/75 H 93 Room Air 04/14/25 21:38 65 Laboratory Results CBC obtained this morning shows a white count of 7.39. This is improved since yesterday. H&H of 15.6 and 45.8. Cultures are still pending final result. No growth to date.
--- NOTE | 2025-04-15 10:18 | Discharge Summary ---
Discharge Summary Date of Service April 15, 2025 Principal Dx & Hospital Course #1 = Principal Diagnosis (1) Trauma: (2) Accidental fall from ladder: (3) Left knee injury: (4) Low back pain: (5) Hypertension: (6) CAD (coronary artery disease): Plan 70yo male with history of CAD, DM, HTN, Gout presenting after a fall from ladder - appx 14 feet. Patient with injury to left knee. #Fall | trauma | ambulatory dysfunction While patient does endorse head strike; no LOC C-spine cleared Head CT, cervical spine CT, and lumbar spine CT without acute findings or fractures Pain control with Tylenol, Tramadol and Morphine PRN Note: Patient has not required IV morphine x48h prior to discharge, and reports that the tramadol has been enough for pain control today Flexeril PRN PT/OT evaluations appreciated Will plan for outpatient PT (patient has dogs and would like to avoid HH PT/OT coming in) WBAT on LLE Will plan to discharge patient on tramadol 50 mg p.o. q8h PRN for breakthrough pain #Left knee pain, swelling | h/o pseudogout H/o synvisc injections in the L knee for severe osteoarthritis; last injection >1y ago WBC trend: 16 -> 10 -> 12 -> 9.7 -> 7.39 (WNL) CRP trend: 8.51 -> 18.53 -> 7.59 Orthopedics consult appreciated Underwent left knee joint aspiration + intra-articular steroid injection on 04/12 Follow-up orthopedic appointment scheduled for 04/22 Abnormal synovial fluid analysis: Synovial fluids analysis revealed elevated WBC count at 58k Gram stain negative for organisms Aerobic/anaerobic cultures drawn on 04/12 with NGTD on 04/15 This could be consistent with gout v. pseudogout; however, synovial crystal analysis resulted without crystals While findings on CT were initially concerning for a possible septic arthritis, patient improved after joint aspiration/steroid injection Giving downtrending WBC count and CRP, no fevers, decreased pain/redness/swelling, and reports of clinical improvement, I do not suspect this is septic arthritis Touched base with orthopedics, who agree that synovial fluid was abnormal, but this could be an exacerbation of tricompartmental arthritis versus pseudogout (despite no crystals in synovial fluid analysis) Do not feel the patient requires antibiotics at this time 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 Mr. Tatum is in good spirits this morning. He reports he was has been able to get up independently with a walker and get to the bathroom twice this morning. Overall, he feels that his left knee has gotten better with each day after having the joint aspiration and intra-articular steroid injection. Overall he feels "fantastic". He rates the pain in his left knee as a 2 out of 10 without radiation. He does still note some muscle tenderness in his left lateral thigh along the IT band, but reports that he has been icing it, and is not bugging him this morning. Overall, he is eager to return home today if possible. He reports his is able to pick him up. He confirms that he has an upcoming appointment with orthopedics on April 22, as well as outpatient physical therapy on April 25. ROS: Patient endorses mild left knee pain, and left thigh tenderness. Patient denies fevers overnight, chills, night sweats, feeling off balance with walking, headaches, chest pain, SOB, cough, abdominal pain, N/V/D, saddle anesthesia, or numbness or tingling going down the left leg. Disposition: Discharge home with outpatient PT/OT Notes For Next Care Provider Patient hospitalized as a trauma alert after sustaining a fall off a ladder. Tanner scan imaging was negative. However patient developed pain/redness/swelling in the left knee. History of tricompartmental arthritis and pseudogout in the left knee; follows with orthopedics as an outpatient has had multiple injections in the knee before. While in the hospital, he had a joint aspiration on 04/12, as well as intra- articular steroid injection. The synovial fluid analysis was somewhat abnormal, as there was an elevated white blood cell count at 58K, but his Gram stain did not grow any organisms, and there were no reported crystals to indicate signs of gout versus pseudogout. It is possible that this was an exacerbation of his known tricompartmental arthritis. Given no fevers, no leukocytosis, downtrending CRP, and overall improvement in symptoms after steroid injection, do not feel this was septic arthritis. During transitional care appointment appointment, we recommend reviewing the finalized aerobic/anaerobic culture that was drawn in the hospital on 04/12. While it shows no growth to date on 04/15, it will not be finalized for another couple days. He has a follow-up appointment with orthopedics on April 22, and has opted for outpatient physical therapy over home health services. Admission HPI Per Admitting Provider Maik Tatum is a 70yo male with history of CAD s/p CABG, DM, HTN, GERD and Gout presenting after a fall from a ladder. Patient was standing on a ladder installing a solar light for the dogs when he lost his balance and fell off a ladder from approximately 14 feet. He landed on the gravel - left knee and shoulder. No head trauma or LOC. Now with pain in his left knee and left back. Reports chronic arthritis in his left knee - has had multiple injections and joint aspirations. Follows with Dr. Winchester from [facility] and Dr. Tsang ER Course: Dilaudid 0.5mg Zofran 4mg Dilaudid 1mg TOradol 30mg Tylenol 1gm Dilaudid 1mg Admission Exam Per Admitting Provider General: patient resting comfortably, NAD, non-toxic in appearance, AA&O x 4 Skin: warm, dry, intact, no rashes or lesions HEENT: NC/AT, PERRL, EOMI, anicteric sclera, conjunctiva without injection, external ear normal to inspection and nontender, nares patent, moist mucus membranes, dentition intact, no oropharyngeal lesions, neck supple, trachea midline, no LAD, no thyromegaly, no JVD Heart: +S1/S2, regular, no m/r/g Lungs: equal air entry bilaterally, no rales/rhonchi/wheezes Abd: +BS, soft, NT/ND, no masses/organomegaly/ascites Ext: warm, 2+ pulses in UE/LE bilaterally, no clubbing/cyanosis or edema, left knee with warmth, swelling and tenderness Neuro: nonfocal, patient AA&O x 4, speech intact, no facial droop, moving all extremities on command with equal strength 5/5 Discharge Exam General: no acute distress; pleasant affect; non-toxic appearing; cooperative; SpO2 94% on RA HEENT: normocephalic, atraumatic; PERRLA; vision and hearing intact Neck: supple; trachea midline Skin: warm, dry without signs of tenting; no cyanosis; no rashes, bruising, lesions, or erythema noted CV: chest wall NTP; RRR; S1/S2 normal; no murmurs/rubs/gallops; pulses intact and symmetric at radial, DP, and PT Lungs: no acute respiratory distress; symmetrical chest wall expansion; clear breath sounds across all lung guadalupe w/o adventitious sounds; no wheezing ABD: Soft, NTP; BS present; no rebound/guarding; no distention MSK: no tics or fasciculations; no edema noted in the LEs b/l, nonerythematous; 3/5 plantar/dorsiflexion in the L ankle; 5/5 plantar/dorsiflexion in the R ankle Left knee: NTP; bandaged; patient demonstrates ability to flex the knee 90 degrees after sitting up on the side of the bed, as well as extend it fully against resistance Neuro: A&Ox3; normal mood and affect; fluent speech; sensation intact and symmet kelsy in the LEs b/l Gait: Patient demonstrates ability to stand independently at the side of the bed and take a couple steps; he does note that bearing weight on his left leg still elicits pain in the knee Discharge Plan Discharge Items Patient Disposition: Home - Self-Care Reason For Visit: S/P FALL, LEFT KNEE INJURY Discharge Diagnosis: OA left knee Effusion left knee Condition on Discharge: Good Activity: As commented below Activity Comment: WBAT on left leg; follow outpatient PT recommendations Non-emergency contact: Primary Care Provider Call non-emergency contact if: you have any medication questions, your symptoms worsen, your pain is not controlled and you have a fever Follow-up/Referrals: Thalia Joseph DO [Primary Care Provider] - Yohan Archer PA [Physician Consulting Intern] - 04/22/25 11:15 am Diet: Regular Addtl Attending Provider Instructions: You are hospitalized at [facility] from 04/12 for 04/15 after sustaining a fall off of a 14 foot ladder at home. On arrival, you were listed as a "trauma alert" given you fell and hit your head on both Plavix and aspirin. However, CT imaging taken at that time did not reveal any acute fractures or abnormalities in your body. You did however, note pain in your left knee. CT imaging of your left knee showed an effusion concerning for something called septic arthritis. This is a joint infection, that when left untreated can lead to severe illness. You underwent a joint aspiration and steroid injection with our orthopedic team on 04/12. Following this aspiration, you reported that your left knee pain gradually improved with each day while working with our physical therapy team. Given your vitals are stable, your CRP (inflammation biomarker and blood work) is downtrending, and your white blood cell count is within normal limits, we do not feel this is septic arthritis, and feel that you are safe to return home at this time. Please plan to follow-up with orthopedics on April 22, and plan to follow-up with physical therapy as an outpatient on April 25. In the interim, we recommend that you use crutches or a walker to ambulate. You may be weightbearing as tolerated on your left knee/leg. New prescriptions on discharge: - Tramadol 50 mg every 8 hours as needed for severe breakthrough pain (scale 7-10) For pain control, we recommend that you mainly stick to Tylenol 500 mg ("extra strength") tablets as needed for your pain. Please do not exceed 3000 mg of Tylenol daily. You can rotate Tylenol and tramadol every 4 hours as needed for your pain. Please also plan to follow-up with your PCP in the next 7 to 10 days for a transitional care appointment. If you develop any new or worsening symptoms, such as fever, chills, intractable left knee pain, difficulty walking, or worsening redness/swelling in the left knee, please return to the emergency department immediately. It was a pleasure take care of you. Please reach out with any questions or concerns. Sincerely, The Hospital medicine team at [facility] Addtl Stationary Engineer Refrigeration Provider Instructions: Orthopedic Instructions: - You may weight-bear as tolerated on your left knee and leg. - Use crutches or walker to assist with ambulation as needed. - You may do full range of motion of your left knee as tolerated. - Ice to left knee as needed for pain or swelling. - Santiago bandage around left knee as needed for compression due to swelling. May remove or reapply as needed for comfort. - Follow-up as scheduled at [facility] orthopedics. - Call [phone] with any increased pain, swelling, fevers or chills. - Tylenol and/or ibuprofen as needed for pain. Pending Studies at Discharge: Yes Studies:: Aero/Anaerobic Cx drawn 04/12; NGTD on 04/15 Stand-Alone Forms: My [facility] Medications and DC Order Prescriptions: Continued cholecalciferol (vitamin D3) 2,000 unit capsule 2,000 units PO QDD (DME) OneTouch Verio test strips Strip See Rx Instructions .ROUTE .MEDSUPPLY Qty: 300 3RF Rx Instructions: Test blood sugar 3 times daily E11.9 (DME) lancets [OneTouch Delica Lancets] 30 gauge misc See Rx Instructions .ROUTE .MEDSUPPLY Qty: 500 3RF Rx Instructions: Test blood sugar five times daily (DME) FreeStyle Crystal 2 [place] Misc See Rx Instructions .Route Qty: 1 0RF Rx Instructions: As directed (DME) FreeStyle Crystal 2 Sensor Kit See Rx Instructions .Route Qty: 2 11RF Rx Instructions: As directed hydrochlorothiazide 25 mg tablet 25 mg PO QAM Qty: 90 3RF insulin lispro [Admelog SoloStar U-100 Insulin] 100 unit/mL insulin pen See Rx Instructions subcut USEASDIRECTD Qty: 15 2RF Rx Instructions: Use SQ as directed prior to meal per scale. Up to 50units per day; subcutaneously use as directed; pantoprazole 40 mg tablet,delayed release (DR/EC) 40 mg PO DAILY PRN (Reason: Indigestion) Qty: 90 1RF Patient Comments: RARELY fluticasone propionate [Flonase Allergy Relief] 50 mcg/actuation spray,suspension 2 spray INTRANASAL QAM Qty: 16 5RF clopidogrel [Plavix] 75 mg tablet 75 mg PO QAM Qty: 90 3RF levothyroxine 75 mcg tablet 75 mcg PO QAM Qty: 90 1RF metoprolol succinate 25 mg tablet extended release 24 hr 25 mg PO BID Qty: 180 3RF Jardiance 25 mg tablet 25 mg PO DAILY Qty: 90 3RF atorvastatin 80 mg tablet 80 mg PO DAILY Qty: 90 3RF duloxetine 60 mg capsule,delayed release(DR/EC) 60 mg PO BID Qty: 180 3RF cyclobenzaprine 5 mg tablet 2.5 mg PO TID PRN (Reason: muscle spasm) Qty: 30 1RF Patient Comments: HAVEN'T TAKEN IN AWHILE "MAKES ME FUZZY OR SOMETHING I DON'T LIKE THE WAY IT MAKES ME FEEL" (DME) pen needle, diabetic [Easy Comfort Pen [place]] 32 gauge x 5/32" needle See Rx Instructions .ROUTE .MEDSUPPLY Qty: 100 5RF Rx Instructions: Use to inject Basaglar once daily and Novolog PRN insulin glargine [Basaglar KwikPen U-100 Insulin] 100 unit/mL (3 mL) insulin pen 65 unit subcut DAILY Qty: 15 2RF doxazosin 1 mg tablet 1 mg PO QPM Qty: 90 1RF aspirin [Adult Low Dose Aspirin] 81 mg tablet,delayed release (DR/EC) 81 mg PO QAM (DME) blood-glucose meter [Intalio Verio Reflect Meter] Misc See Rx Instructions .ROUTE .MEDSUPPLY Qty: 1 0RF Rx Instructions: Test blood sugar five times daily loratadine 10 mg tablet 10 mg PO DAILY budesonide-formoterol [Symbicort] 160-4.5 mcg/actuation HFA aerosol inhaler 1 inh inhalation BID Qty: 10.2 2RF ipratropium-albuterol 0.5 mg-3 mg(2.5 mg base)/3 mL solution for nebulization 3 ml inhalation QID PRN (Reason: wheezing) Qty: 180 3RF albuterol sulfate 90 mcg/actuation HFA aerosol inhaler 2 puff inhalation Q4H PRN (Reason: Shortness Of Breath) Qty: 6.7 2RF prednisone 20 mg tablet 20 - 40 mg PO UD PRN (Reason: BEE STINGS/ANAPHYLAXIS) Qty: 10 0RF nitroglycerin 0.4 mg tablet, sublingual 0.4 mg SL Q5M PRN (Reason: chest pain) Qty: 25 4RF Patient Comments: NOT USED SINCE MY HEART SURGERY Rx Instructions: up to 3 doses. If no resolution of Chest pain after 5 min, call 911. epinephrine 0.3 mg/0.3 mL auto-injector 0.3 mg IM UD PRN (Reason: Anaphylaxis/BEE STINGS) Qty: 2 3RF acetaminophen [Tylenol Extra Strength] 500 mg Tablet 1,000 mg PO UD PRN (Reason: Pain) Medical Marijuana Card 1 dose UD PRN (Reason: Back Pain) tramadol 50 mg tablet 50 mg PO Q8H PRN (Reason: pain (scale score 7-10)) Qty: 20 0RF Rx Instructions: Take 1 tablet every 8 hours as needed for severe breakthrough pain in the left knee (rated 7-10) Discharge Orders: Discharge Order (Routine); Ordered 04/15/25 Ordered By: Max Rubio Admission Data Admit Date/Time: 04/12/25 05:27 Attending Provider: Osei Schroeder Admit Provider: Sabina Miranda Primary Care Provider: Thalia Joseph. Other Providers: Sabina Miranda; Pete Winchester Hospital Stay Data Consultations 04/12/25 04:47 ED Decision to Admit Stat 04/12/25 05:27 Consult Orthopedic Surgery Routine Diagnostic Imagining Performed 04/11/25 22:50 CT abd pelvis IV con only Stat CT cervical spine wo con Stat CT chest diagnostic w con Stat CT head/brain wo con Stat CT lumbar spine w con Stat 04/12/25 01:57 CT knee LT w con Stat 04/12/25 15:14 MRI Knee [MR knee LT wo/w con] Stat Discharge Instructions Given to Patient (Per Discharging Provider) You are hospitalized at [facility] from 04/12 for 04/15 after sustaining a fall off of a 14 foot ladder at home. On arrival, you were listed as a "trauma alert" given you fell and hit your head on both Plavix and aspirin. However, CT imaging taken at that time did not reveal any acute fractures or abnormalities in your body. You did however, note pain in your left knee. CT imaging of your left knee showed an effusion concerning for something called septic arthritis. This is a joint infection, that when left untreated can lead to severe illness. You underwent a joint aspiration and steroid injection with our orthopedic team on 04/12. Following this aspiration, you reported that your left knee pain gradually improved with each day while working with our physical therapy team. Given your vitals are stable, your CRP (inflammation biomarker and blood work) is downtrending, and your white blood cell count is within normal limits, we do not feel this is septic arthritis, and feel that you are safe to return home at this time. Please plan to follow-up with orthopedics on April 22, and plan to follow-up with physical therapy as an outpatient on April 25. In the interim, we recommend that you use crutches or a walker to ambulate. You may be weightbearing as tolerated on your left knee/leg. New prescriptions on discharge: - Tramadol 50 mg every 8 hours as needed for severe breakthrough pain (scale 7-10) For pain control, we recommend that you mainly stick to Tylenol 500 mg ("extra strength") tablets as needed for your pain. Please do not exceed 3000 mg of Tylenol daily. You can rotate Tylenol and tramadol every 4 hours as needed for your pain. Please also plan to follow-up with your PCP in the next 7 to 10 days for a transitional care appointment. If you develop any new or worsening symptoms, such as fever, chills, intractable left knee pain, difficulty walking, or worsening redness/swelling in the left knee, please return to the emergency department immediately. It was a pleasure take care of you. Please reach out with any questions or concerns. Sincerely, The Hospital medicine team at [facility] Total Time Total Time Spent Total Time Spent (In Minutes): 25 Coding Level of Care Code 61126 IN/OBS DISCH 30 MIN/LESS Diagnoses Trauma T14.90XA Accidental fall from ladder W11.XXXA Left knee injury S89.92XA Low back pain M54.50 Hypertension I10 CAD (coronary artery disease) I25.10
[2025-04-15 11:21] VITALS: BP 123/69; TEMP 97.9; O2SAT 91
[2025-04-15 11:58] VITALS: PULSE 80
--- NOTE | 2025-04-16 07:58 | Coding Query ---
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 Please assist us with the question(s) below: Coding Question(s): The Discharge Summary documents Trauma, Accidental fall from ladder and Patient with injury to left knee, as well as, "You are hospitalized at [facility] from 04/12 for 04/15 after sustaining a fall off of a 14 foot ladder at home. On arrival, you were listed as a "trauma alert" given you fell and hit your head on both Plavix and aspirin. However, CT imaging taken at that time did not reveal any acute fractures or abnormalities in your body. You did however, note pain in your left knee", and, "Touched base with orthopedics, who agree that synovial fluid was abnormal, but this could be an exacerbation of tricompartmental arthritis versus pseudogout (despite no crystals in synovial fluid analysis)", and the 04/12 Orthopedic Consultation documents Left Knee Injury and, "There is a questionable fracture of the subchondral cyst in the posterior aspect of his tibial plateau". Please specify below, in your clinical opinion, the most likely etiology of the acute pain that the patient was admitted for during this admission: ( ) Possible/questionable of the subchondral cyst in the posterior aspect of his tibial plateau (of the left side) ( ) Unspecified Injury of the left knee ( ) Exacerbation of tricompartmental arthritis of left knee, with NO fracture (X) Exacerbation of tricompartmental arthritis of left knee, and Possible/questionable of the subchondral cyst in the posterior aspect of his tibial plateau (of the left side) ( ) Exacerbation of tricompartmental arthritis of left knee, and unspecified Injury of Left Knee, with NO fracture ( ) Other: Please Specify Physician's Response(s): While septic arthritis and pseudogout were leading differentials on arrival due to patient present / history, his synovial fluid analysis and hospital course proved that the etiology of his L knee pain was more consistent with an exacerbation of tricompartmental arthritis in the L knee. Potential fracture identified by our orthopedics team, but not mentioned on radiology interpretation. Please reach out with any additional questions or concerns. Thanks! Max Rubio PA-C Principal Diagnosis: "that condition established after study, to be chiefly responsible for occasioning the admission of the patient to the hospital for care." Co-Existing Principal Diagnosis: "when two or more diagnoses equally meet the criteria for principal diagnosis as determined by the circumstances of admission, diagnostic work up, and/or therapy provided, and the Alphabetic Index, Tabular List, or another coding guideline does not provide sequencing direction, any one of the diagnoses may be sequenced first." "When the physician has documented what appears to be a current diagnosis in the body of the record, but has not included the diagnosis in the final diagnostic statement, the physician should be asked whether the diagnosis should be added." (Source Coding Clinic 2 QTR90. p3-4) [facility]
== END 2025-04-15 12:21 | disposition home health service (06) | DRG 563 ==
LOC: SUATTDRO → ED 22:30 → SUATTDRO 04-12 05:27 → 2N 04-12 05:27